=== PATIENT | female | born 1940 | race Caucasian/White ===

== ENCOUNTER 2017-01-06 14:24 | Emergency (ER) | payer OTHER ==
[2017-01-06] MEDS ORDERED: ASPIRIN PO STA (14:30)
[2017-01-06 15:00] LABS: MANUAL DIFF NEEDED? NO
[2017-01-06 15:02] LABS: BASO% 0.4 % (0.0-0.8); EOS# 0.32 X1000 (0.0-0.7); EOS% 3.2 % (0.0-10.0); HEMATOCRIT 39.1 % (37.0-47.0); HEMOGLOBIN 13.7 g/dL (12.0-16.0); IMM GRAN# 0.02 X1000 (0.0-0.04); IMM GRAN% 0.2 % (0.0-0.5); LYMPH# 1.61 X1000 (1.2-3.4); LYMPH% 16.1 % (20.5-51.1); MCV 85.6 FL (81-99); MONO# 1.19 X1000 (0.11-0.59); MONO% 11.9 % (1.7-9.3); MPV 9.3 FL (7.4-10.4); NEUT% 68.2 % (42.2-75.2); PLT 245 X1000 (130-400); RBC 4.57 XMIL (4.2-5.4)
[2017-01-06] MEDS ORDERED: DUONEB (A & A) INH ONE (15:03)
[2017-01-06] MEDS ORDERED: DUONEB (A & A) ONE (15:04)
[2017-01-06 15:11] LABS: BE 1.3 mmoll (-3.0-3.0); BLOOD TYPE ARTERIAL; DRAW SITE L RADIAL; O2(CT) 18.4 mL/dL (15.0-23.0); PCO2(98.6) 40 mmHg (35-45); PO2(98.6) 81 mmHg (60-100); SAMPLE BLOOD; SAO2 99.7 % (95.0-100.0); pH(98.6) 7.42 (7.35-7.45)
--- NOTE | 2017-01-06 15:19 | PROVIDER DOCUMENTATION ---
HPI-Respiratory General - General Source: patient - History of Present Illness-Resp Onset/Duration: reports: 1 week ago Timing: reports: still present Cough Quality/Degree: reports: productive cough Associated Symptoms: reports: cough, short of breath, wheezing. denies: fever/ chills <Zonia Madera - Last Filed: 01/06/17 16:57> <Jluis Asher - Last Filed: 01/06/17 17:00> - General Chief Complaint: Shortness of Breath Stated Complaint: SOB Time Seen by Provider: 01/06/17 15:14 Allergies/Adverse Reactions: Patient Allergies Allergy/AdvReac Type Severity Reaction Status Date / Time codeine [Codeine] Allergy RASH Verified 04/28/14 21:21 hydrocodone bitartrate * Allergy VOMITING Verified 04/28/14 21:21 [From Lortab] Penicillins Allergy SWELLING Verified 04/28/14 21:21 Sulfa (Sulfonamide Allergy ITCHING Verified 04/28/14 21:21 Antibiotics) [Sulfa(Sulfonamide Antibiotics)] Home Medications: Home Medication List Medication Instructions Recorded Confirmed Last Taken Type AMLODIPINE/BENAZEpril [Lotrel 5/10 1 each PO DAILY #0 capsule 11/09/14 07/26/15 07/25/15 05:00 Rx mg] Albuterol [Albuterol Neb] 2.5 mg INH [id number] 07/22/15 07/26/15 07/25/15 05:00 History Ipratropium [place] Neb [Atrovent 0.5 mg INH 4XDAY 07/22/15 07/26/15 07/25/15 05 :00 History Neb] Ondansetron HCl [Zofran] 4 mg PO DAILY 07/22/15 07/26/15 07/25/15 05:00 History Warfarin [Coumadin] 5 mg PO QHS 07/22/15 07/22/15 07/14/15 History Ondansetron HCl [Zofran] 4 mg PO Q4H PRN PRN #0 tablet 07/26/15 Unknown Rx Levofloxacin [Levaquin] 500 mg PO DAILY #10 tablet 01/06/17 Unknown Rx Prednisone 10 mg PO BID #30 tablet 01/06/17 Unknown Rx - History of Present Illness-Resp Nature of Presenting Problem: 76 Y F presents to thr ER with the complain of SOB, nasal congestion, wheezing x1 week. states she takes Prednisone but currently out. Pt uses home O2 and were diagnosed with lymphoma 9 years ago. Denies any symptoms of N/V/D. Received the Prevnar 13 vaccination for pneumonia x2 weeks ago. (Zonia Madera) Review of Systems - Adult - REVIEW OF SYSTEMS - ADULT Constitutional: denies: chills, fever Eyes: reports: no symptoms reported Ears, Nose, Mouth & Throat: reports: no symptoms reported Cardiovascular: denies: chest pain, palpitations Respiratory: reports: cough, shortness of breath, wheezing Gastrointestinal: reports: abdominal pain. denies: nausea, vomiting Genitourinary: reports: no symptoms reported Musculoskeletal: reports: no symptoms reported Integumentary: reports: no symptoms reported Neurological: reports: no symptoms reported Psychiatric: reports: no symptoms reported Endocrine: reports: no symptoms reported Hematologic/Lymphatic: reports: no symptoms reported Allergic/Immunologic: reports: no symptoms reported All Other Systems: Reviewed and Negative <Zonia Madera - Last Filed: 01/06/17 16:57> Past History - Adult - PAST MEDICAL HISTORY-ADULT Review of Records: reports: Nursing Assessment Review, Medications Reviewed Major Childhood Illnesses: reports: denies history Cardiovascular: reports: HTN Respiratory: reports: asthma, COPD Endocrine/Immune: reports: Lymphoma - PRIOR SURGERIES/PROCEDURES Surgical/Procedure History: reports: hysterectomy, other (tunnel hemorrhoidectomy) - PRIOR HOSPITALIZATIONS Prior Hospitalizations: reports: for other non-related - IMMUNIZATION STATUS Childhood Immunizations: See Nurse Assessment Flu Vaccine: See Nurse Assessment - FAMILY HISTORY Family History: reviewed, not pertinent <Zonia Madera - Last Filed: 01/06/17 16:57> Physical Exam-General - PHYSICAL EXAM-ADULT Initial Vital Signs Reviewed: Yes - CONSTITUTIONAL General Appearance: appears well, alert - EYES Eyes: PERRL/EOMI, pink conjunctivae - HEAD, EARS, NOSE, MOUTH & THROAT HENMT: normal ENT inspection, TMs normal - RESPIRATORY Respiratory: no respiratory distress, no accessory muscle use, wheezing, increased rate - CARDIOVASCULAR Cardiovascular: normal peripheral pulses, regular rate, rhythm - GASTROINTESTINAL (ABDOMEN) Abdominal Exam: normal bowel sounds, non tender, soft - MUSCULOSKELETAL Back Exam: no CVA tenderness, no vertebral tenderness, other (dowagers hump) Extremity: normal range of motion, normal gait, normal inspection - SKIN Integumentary: normal color, warm/dry - NEUROLOGIC Neurologic: grossly normal, no motor/sensory deficits - PSYCHIATRIC Psych/Mental Status: normal mood/affect, normal thought content, normal thought process, oriented x 3 <Zonia Madera - Last Filed: 01/06/17 16:57> Progress - EKG 1 Time of EKG reading by physician:: 14:44 EKG Read and Signed by:: Jluis Asher EKG Interpretation (*Must complete 3 of following elements*): Abnormal ( Borderline ECG) Rate: 107 Rhythm: Sinus Tachycardia [place]: normal QRS: normal PA Interval: normal ST Wave: normal Comments: Possible lest artrial enlargment - XRAY 1 XRAY Study: Chest Impression: Abnormal (hyperinflated, per Dr. Asher) <Zonia Madera - Last Filed: 01/06/17 16:57> <Jluis Asher - Last Filed: 01/06/17 17:00> - PLAN OF CARE/RESULTS Progress/Plan/Lab Results: Vital Signs Temp Pulse Resp BP Pulse Ox 01/06/17 14:35 99.7 F H 103 H 24 112/71 93 L codeine [Codeine] Allergy (Verified 04/28/14 21:21) RASH hydrocodone bitartrate * [From Lortab] Allergy (Verified 04/28/14 21:21) VOMITING Penicillins Allergy (Verified 04/28/14 21:21) SWELLING Sulfa (Sulfonamide Antibiotics) [Sulfa(Sulfonamide Antibiotics)] Allergy ( Verified 04/28/14 21:21) ITCHING AMLODIPINE/BENAZEpril [Lotrel 5/10 mg] 1 each PO DAILY #0 capsule 11/09/14 Albuterol [Albuterol Neb] 2.5 mg INH [id number] 07/22/15 Ipratropium [place] Neb [Atrovent Neb] 0.5 mg INH 4XDAY 07/22/15 Ondansetron HCl [Zofran] 4 mg PO DAILY 07/22/15 Warfarin [Coumadin] 5 mg PO QHS 07/22/15 Ondansetron HCl [Zofran] 4 mg PO Q4H PRN PRN #0 tablet 07/26/15 Laboratory 01/06/17 01/06/17 14:50 14:50 WBC 9.98 RBC 4.57 Hgb 13.7 Hct 39.1 MCV 85.6 MCH 30.0 MCHC 35.0 RDW Std Deviation 13.0 Plt Count 245 MPV 9.3 Immature Gran % (Auto) 0.2 Neut % (Auto) 68.2 Lymph % (Auto) 16.1 L [place] % (Auto) 11.9 H Eos % (Auto) 3.2 Baso % (Auto) 0.4 Immature Gran # (Auto) 0.02 Neut # (Auto) 6.80 H Lymph # (Auto) 1.61 [place] # (Auto) 1.19 H Eos # (Auto) 0.32 Baso # (Auto) 0.04 Specimen Type ARTERIAL Sample Site L RADIAL pH 7.42 pCO2 40 pO2 81 HCO3 25.8 Base Excess 1.3 Oxyhemoglobin 93.4 L ABG O2 Sat (Calculated) 18.4 ABG O2 Saturation 99.7 ABG Carboxyhemoglobin 5.30 H* ABG Methemoglobin 1.0 Russel Test YES A-a O2 Difference 69.0 Total Hemoglobin 14.0 Lactate 1.80 Blood Gas Modality CANNULA FiO2 % 28.0 Orders Category Date Time Status Cardiac Monitoring DIRECTED Care 01/06/17 14:30 Active Oxygen Therapy- ED Nursing DIRECTED Care 01/06/17 14:30 Active Saline Loc NOW Care 01/06/17 14:30 Active CHEST-2 VIEWS [RAD] Stat Exams 01/06/17 14:30 Ordered ABG [RESP] Routine Lab 01/06/17 14:50 Completed CBC WITH ELECTRONIC DIFF [HEME] Stat Lab 01/06/17 14:50 Completed CK PROFILE [SP CHEM] Stat Lab 01/06/17 14:50 Received COMPREHENSIVE METABOLIC PANEL [CHEM] Stat Lab 01/06/17 14:50 Received D-D[address]ER PL [COAG] Stat Lab 01/06/17 14:50 Received MAGNESIUM [CHEM] Stat Lab 01/06/17 14:50 Received PRO B-NATRIURETIC PEPTIDE Stat Lab 01/06/17 14:[address] Received [address]IME WITH INR PL [COAG] Stat Lab 01/06/17 14:[address] [COAG] Stat Lab 01/06/17 14:50 Received TROPONIN T Stat Lab 01/06/17 14:50 Received Albuterol 2.5MG/Ipratrop 0.5MG [Duoneb (A & A)] Med 01/06/17 15:04 Discontinued 3 ml .ROUTE .STK-MED ONE Albuterol 2.5MG/Ipratrop 0.5MG [Duoneb (A & A)] Med 01/06/17 15:03 Discontinued 3 ml INH NOW ONE Aspirin Med 01/06/17 14:30 Discontinued 325 mg PO STAT STA Aerosol Treatments Stat Oth 01/06/17 15:03 Active EKG [EKG] Stat Ther 01/06/17 14:30 Ordered Laboratory Tests 01/06/17 01/06/17 14:50 14:50 WBC 9.98 RBC 4.57 Hgb 13.7 Hct 39.1 MCV 85.6 MCH 30.0 MCHC 35.0 RDW Std Deviation 13.0 Plt Count 245 MPV 9.3 Immature Gran % (Auto) 0.2 Neut % (Auto) 68.2 Lymph % (Auto) 16.1 L [place] % (Auto) 11.9 H Eos % (Auto) 3.2 Baso % (Auto) 0.4 Immature Gran # (Auto) 0.02 Neut # (Auto) 6.80 H Lymph # (Auto) 1.61 [place] # (Auto) 1.19 H Eos # (Auto) 0.32 Baso # (Auto) 0.04 Specimen Type ARTERIAL Sample Site L RADIAL pH 7.42 pCO2 40 pO2 81 HCO3 25.8 Base Excess 1.3 Oxyhemoglobin 93.4 L ABG O2 Sat (Calculated) 18.4 ABG O2 Saturation 99.7 ABG Carboxyhemoglobin 5.30 H* ABG Methemoglobin 1.0 [place] Test YES A-a O2 Difference 69.0 Total Hemoglobin 14.0 Lactate 1.80 Blood Gas Modality [place] FiO2 % 28.0 (Zonia Madera) Departure - Departure Time of Disposition Order: 16:57 Certified Medical Emergency: Emergent <Zonia Madera - Last Filed: 01/06/17 16:57> - Departure Time of Disposition Order: 16:59 Certified Medical Emergency: Emergent <Jluis Asher - Last Filed: 01/06/17 17:00> - Departure DIAGNOSIS: Acute bronchitis due to infection, COPD exacerbation Disposition: HOME 01 Condition: Stable Additional Instructions: ED Follow Up Instructions: You have been treated by a care provider in the Emergency Department. These instructions are being provided to you so you can have an understanding of how to care for yourself upon discharge. Upon discharge from the Emergency Department, you are responsible for making arrangements for follow-up care by a physician of your choice. Take all prescribed medications as directed. Return to the Emergency Department immediately for any new or worsening symptoms. You may call the Physician Referral phone number at [phone] to obtain a list of Physicians who are taking new patients. Prescriptions: Levofloxacin [Levaquin] 500 mg PO DAILY #10 tablet Prednisone 10 mg PO BID #30 tablet Referrals: Ankush Perez MD [Primary Care Provider] - Attestation - Scribe Verification/Attestation Scribe:: Zonia Madera Acting as Scribe for:: Jluis Asher Scribe documention review:: This chart was documented by a scribe and accurately reflects the service the provider performed and the decisions made by the provider. <Zonia Madera - Last Filed: 01/06/17 16:57> Physician Attestation
[2017-01-06 15:23] LABS: ALLEN TEST YES; MODALITY CANNULA
[2017-01-06 15:28] LABS: INR 0.97 (0.86-1.15); PROTIME 13.2 Seconds (12.1-15.5)
[2017-01-06 15:29] LABS: PTT PL 29.2 Seconds (22.6-43.9)
[2017-01-06 15:31] LABS: AGAP 15; ALKALINE PHOSPHATASE 59 U/L (32-104); BUN 9 mg/dL (8-22); CALCIUM 8.7 mg/dL (8.8-10.2); CHLORIDE 96 mmol/L (98-107); CK PROFILE 130 U/L (24-173); COSMO 267; GOT 18 U/L (10-30); GPT 11 U/L (10-36); MAGNESIUM 1.8 mg/dL (1.5-2.7); POTASSIUM 3.4 mmol/L (3.5-5.1); SODIUM 133 mmol/L (136-145); TCO2 22 mmol/L (25-35)
--- NOTE | 2017-01-06 17:01 | EKG Report ---
Test Performed on : 01/06/2017 2:44:09 PM Test Reason : CHEST PAIN Blood Pressure : / mmHG Vent. Rate : 107 BPM Atrial Rate : 107 BPM P-R Int : 128 ms QRS Dur : 066 ms QT Int : 326 ms P-R-T Axes : 079 080 066 degrees QTc Int : 435 ms Sinus tachycardia. Possible Left atrial enlargement Borderline ECG When compared with ECG of 22-JUL-2015 13:27, No significant change was found Unconfirmed Result
--- NOTE | 2017-01-06 17:03 | Diag Imaging Result Document ---
PROCEDURE NAME: CHEST-2 VIEWS - 01/06/2017 PA AND LATERAL RADIOGRAPHS OF THE CHEST: COMPARISON: 05/11/2016. FINDINGS: Left chest port is in stable position. The lungs are grossly clear. There is no definite pleural fluid collection. There is a stable catheter fragment projecting over the mediastinum, likely in the right ventricle. Cardiac silhouette and central vasculature are unremarkable, otherwise. IMPRESSION: Stable chest with no definite acute pathology.
[2017-01-06 17:30] VITALS: BP 167/87
== END 2017-01-06 17:30 | disposition home or self-care (01) ==
LOC: P.ED 14:24
DX: J20.9 Acute bronchitis, unspecified (principal); J44.1 Chronic obstructive pulmonary disease with (acute) exacerbation; R06.02 Shortness of breath; R09.81 Nasal congestion; R06.2 Wheezing; R05 Cough; I10 Essential (primary) hypertension; Z85.72 Personal history of non-Hodgkin lymphomas; Z79.899 Other long term (current) drug therapy; R94.31 Abnormal electrocardiogram [ECG] [EKG]; R10.9 Unspecified abdominal pain; Z79.84 Long term (current) use of oral hypoglycemic drugs
CPT/HCPCS: 71020; 80053; 82550; 82805; 83735; 83880; 84484; 85025; 85379; 85610; 85730; 93005; 99284

== ENCOUNTER 2018-11-24 09:44 | Inpatient (IN) ==
[2018-11-24] MEDS ORDERED: DUONEB (A & A) INH ONE ×2 (10:00→12:16)
[2018-11-24] MEDS ORDERED: ZOFRAN IV ONE ×2 (10:00→12:16)
[2018-11-24] MEDS ORDERED: SOLU-MEDROL IV ONE (10:00)
[2018-11-24] MEDS ORDERED: ATIVAN IV ONE (10:00)
[2018-11-24] MEDS ORDERED: NS 1,000 ML IV ONE (10:02)
[2018-11-24] MEDS ORDERED: ROCEPHIN 1 GM in NS 50 ML IV ONE (10:11)
[2018-11-24] MEDS ORDERED: ZITHROMAX 500 MG/NS 500 MG/250 ML IVPB IV ONE (10:11)
--- NOTE | 2018-11-24 10:11 | PROVIDER DOCUMENTATION ---
HPI-Respiratory General - General Chief Complaint: Shortness of Breath Stated Complaint: SOB,COPD Time Seen by Provider: 11/24/18 09:55 Source: patient, family Allergies/Adverse Reactions: Patient Allergies Allergy/AdvReac Type Severity Reaction Status Date / Time codeine [Codeine] Allergy RASH Verified 11/24/18 11:01 hydrocodone bitartrate * Allergy VOMITING Verified 11/24/18 11:01 [From Lortab] Penicillins Allergy SWELLING Verified 11/24/18 11:01 Sulfa (Sulfonamide Allergy ITCHING Verified 11/24/18 11:01 Antibiotics) [Sulfa(Sulfonamide Antibiotics)] Home Medications: Home Medication List Medication Instructions Recorded Confirmed Last Taken Type Albuterol [Albuterol Neb] 2.5 mg INH [id number] 07/22/15 11/24/18 07/25/15 05:00 History Ipratropium [place] Neb [Atrovent 0.5 mg INH 4XDAY 07/22/15 11/24/18 07/25/15 05 :00 History Neb] - History of Present Illness-Resp Nature of Presenting Problem: Patient has hx of COPD, on home O2 1LPM prn states she has had increased SOB and work of breathing over the last 4 days, getting gradually worse. Denies fever, chills, CP, patient states she is nauseaus. Quality of Pain: reports: none Severity in ED: reports: moderate Onset/Duration: reports: 4 days ago Timing: reports: still present, constant, getting worse Context: reports: multiple patients with similar complaints, recent URI Exposure: reports: illness exposure, smoke exposure (still smokes, though hasn' t smoked in the last 4 days) Cough Quality/Degree: reports: moderate, productive cough, sputum Episode Frequency: occasional episodes Current Respiratory Medication Therapy: Initiated albuterol/atrovent inhale, Initiated A/A nebulizer, Initiated prednisone Modifying Factors: improves with: oxygen, rest. worse with: exertion, coughing Associated Symptoms: reports: chest pain/soreness, cough, hyperventilating, short of breath, sweaty, wheezing Similar Symptoms Previously?: Yes Recently seen or treated by another doctor?: No Review of Systems - Adult - REVIEW OF SYSTEMS - ADULT Constitutional: reports: see HPI, chills, fever. denies: night sweats Eyes: reports: no symptoms reported Ears, Nose, Mouth & Throat: reports: no symptoms reported Cardiovascular: reports: no symptoms reported Respiratory: reports: see HPI, chronic cough, cough, dyspnea on exertion, excessive sputum production, shortness of breath, wheezing. denies: hemoptysis , pleurisy Gastrointestinal: reports: no symptoms reported Genitourinary: reports: no symptoms reported Musculoskeletal: reports: no symptoms reported Integumentary: reports: no symptoms reported Neurological: reports: no symptoms reported Psychiatric: reports: no symptoms reported Endocrine: reports: no symptoms reported Hematologic/Lymphatic: reports: no symptoms reported Allergic/Immunologic: reports: no symptoms reported All Other Systems: Reviewed and Negative Past History - Adult - PAST MEDICAL HISTORY-ADULT Review of Records: reports: Old Records Reviewed, Nursing Assessment Review, Medications Reviewed, Social history reviewed & non-contributory. Major Childhood Illnesses: reports: denies history Cardiovascular: reports: CHF, HTN Respiratory: reports: asthma, COPD Gastrointestinal: reports: denies history Obstetrical/Gynecological: reports: denies history Genitourinary: reports: denies history Musculoskeletal: reports: denies history Neurological: reports: denies history Endocrine/Immune: reports: Lymphoma Other Conditions: reports: denies history - PRIOR SURGERIES/PROCEDURES Surgical/Procedure History: reports: hysterectomy, other - PRIOR HOSPITALIZATIONS Prior Hospitalizations: reports: for other non-related - IMMUNIZATION STATUS Childhood Immunizations: See Nurse Assessment Flu Vaccine: See Nurse Assessment - FAMILY HISTORY Family History: reviewed, not pertinent - SOCIAL HISTORY Smoking: cigarettes, greater than 1 pack/day Provider spent 3-5 mins advising pt. on dangers of tobacco.: Discussed manners to quit use, and f/u contacts for add'l counseling. Substance Use: none/never Alcohol Use Frequency: rarely Living Situation: family Physical Exam-General - PHYSICAL EXAM-ADULT Initial Vital Signs Reviewed: Yes (Febrile, tachycardic, tachypneic, meets sepsis criteria) - CONSTITUTIONAL General Appearance: mild distress, thin, anxious - EYES Eyes: PERRL/EOMI, pink conjunctivae - HEAD, EARS, NOSE, MOUTH & THROAT HENMT: normocephalic/atraumatic, moist mucous membranes, normal ENT inspection, pharynx normal - NECK Neck: non-tender, full range of motion, supple, normal inspection - RESPIRATORY Respiratory: chest non-tender, no pleuratic chest pain, respiratory distress ( moderate), decreased breath sounds, accessory muscle use, rhonchi, wheezing, prolonged expiration, increased rate - CARDIOVASCULAR Cardiovascular: regular rate, rhythm, no gallop, no JVD, tachycardia, gallop/S3 - GASTROINTESTINAL (ABDOMEN) Abdominal Exam: normal bowel sounds, non tender, soft, no organomegaly, no pulsatile mass - LYMPHATIC Lymphatic: no adenopathy - MUSCULOSKELETAL Back Exam: normal inspection, no CVA tenderness, no vertebral tenderness Extremity: normal range of motion, non-tender, no calf tenderness, normal capillary refill, pedal edema (1-2+ bilateral) - SKIN Integumentary: normal color, normal turgor, warm/dry - NEUROLOGIC Neurologic: winding inspector II-XII nml as tested, grossly normal, no motor/sensory deficits - PSYCHIATRIC Psych/Mental Status: normal mood/affect, normal thought content, normal thought process, oriented x 3 Progress - PLAN OF CARE/RESULTS Progress/Plan/Lab Results: Orders Category Date Time Status Admit - [facility] Routine AdmDCTranf 11/24/18 12:30 Active Activity - Strict Bedrest ORDERED Care 11/24/18 12:30 Completed Call Admitting on Arrival AT ADMISSION Care 11/24/18 12:31 Completed Neurological Check EVERY SHIFT NURSING Care 11/24/18 12:30 Completed Nursing- Obtain EKG once Care 11/24/18 09:59 Completed Resuscitation Status Routine Care 11/24/18 12:30 Ordered Saline Loc NOW Care 11/24/18 09:59 Completed Vital Signs Order [id number].[email or web address] Care 11/24/18 12:30 Completed Z-Document. for Tele Applied ORDERED Care 11/24/18 12:31 Completed CHEST-PORTABLE [RAD] Stat Exams 11/24/18 10:00 Completed ABG [RESP] Routine Lab 11/24/18 10:20 Completed BLOOD CULTURE [BLDCUL] Stat Lab 11/24/18 10:51 Results CBC WITH ELECTRONIC DIFF [HEME] Stat Lab 11/24/18 10:38 Completed CK PROFILE [SP CHEM] Stat Lab 11/24/18 10:38 Completed COMPREHENSIVE METABOLIC PANEL [CHEM] Stat Lab 11/24/18 10:38 Completed INFLUENZA SCREEN A/B Stat Lab 11/24/18 10:43 Completed LACTATE, PLASMA [CHEM] Stat Lab 11/24/18 10:38 Completed MAGNESIUM [CHEM] Stat Lab 11/24/18 10:38 Completed PRO B-NATRIURETIC PEPTIDE Stat Lab 11/24/18 10:38 Completed PROTIME WITH INR [COAG] Stat Lab 11/24/18 10:38 Completed TROPONIN T Stat Lab 11/24/18 10:38 Completed URINALYSIS W/POSS RFLX CULT [URINALYSIS] Stat Lab 11/24/18 12:35 Completed 0.9% Sodium Chloride Inj [Ns] 1,000 ml Med 11/24/18 10:02 Discontinued IV 999 mls/hr Acetaminophen [Tylenol] Med 11/24/18 10:12 Discontinued 1,000 mg PO NOW ONE Acetaminophen [Tylenol] Med 11/24/18 17:00 Active 650 mg PO Q6H PRN PRN Albuterol 2.5MG/Ipratrop 0.5MG [Duoneb (A & A)] Med 11/24/18 12:16 Discontinued 3 ml INH NOW ONE Albuterol 2.5MG/Ipratrop 0.5MG [Duoneb (A & A)] Med 11/24/18 10:00 Discontinued 9 ml INH NOW ONE Azithromycin 500 mg/Ns [Zithromax 500 mg/Ns] Med 11/24/18 10:11 Discontinued 500 mg in 250 ml IV NOW CefTRIAXONE [Rocephin] 1 gm Med 11/24/18 10:11 Discontinued 0.9% Sodium Chloride Inj [Ns] 50 ml IV NOW Furosemide [Lasix] Med 11/24/18 10:13 Discontinued 20 mg IV NOW ONE Lorazepam [Ativan] Med 11/24/18 10:00 Discontinued 0.5 mg IV NOW ONE Magnesium Sulfate 1 gm/D5w Med 11/24/18 10:56 Discontinued 1 gm in 100 ml IV NOW Methylprednisolone Sod Succ [Solu-Medrol] Med 11/24/18 10:00 Discontinued 125 mg IV NOW ONE Ondansetron [Zofran] Med 11/24/18 10:00 Discontinued 4 mg IV NOW ONE Ondansetron [Zofran] Med 11/24/18 12:16 Discontinued 4 mg IV NOW ONE Vancomycin 1 gm/Ns Med 11/24/18 10:18 Discontinued 1 gm in 250 ml IV NOW Aerosol Treatments Routine Oth 11/24/18 10:01 Completed Aerosol Treatments Routine Oth 11/24/18 12:17 Completed Aerosol Treatments Stat Oth 11/24/18 10:01 Completed Aerosol Treatments Stat Oth 11/24/18 12:17 Completed EKG [EKG] Stat Ther 11/24/18 09:59 Draft Ryden: Examined pt, rr elevated, working to breath, wheezing has had bipap in the past, d/w pt and son about intubation, chest compressions and shocking the heart, she said if it will save her life do it. I added Mag IV and will add bipap, pt has fever and has been given APAP BNP elevated, pt has been given lasix 20, lactate nl so does not qualify for IVF 30 ml/kg, the liter given may have off set the lasix, pt primarily wheezing at the moment, no elevated total WBC Chest xray neg, no other new concerning findings of review of labs, UA pending, currently no source for fever unless subtle pneumonia not picked up by chest xray or UTI 12:17 pt not on bipap yet, rr still elevated, pt resting, HR 102, wheezing mild , call out to hospitalist, correction, Dr Roman Goode is PCP D/w Dr Castillo [facility] condition exam results treatment concerns, not a DNR, asked for orders and admit to ICU Result Diagrams: 11/27/18 04:48 11/27/18 04:48 - REASSESSMENT Reassessment #1 Time Reassessed: 10:17 Status: unchanged (Patient meets criteria for sepsis, will treat for CAP, last admitted 07/09. Given IVF bolus, Duoneb x 3, IV solu-medrol, IV lasix, tylenol po, IV Rocephin/zithromax. Old chart reviewed. Patient has a port, so will also admininster vanc.) - EKG 1 Time of EKG reading by physician:: 10:00 EKG Read and Signed by:: Deondre Reynolds EKG Interpretation (*Must complete 3 of following elements*): Abnormal Rate: 119 Rhythm: sinus tachy [place]: normal QRS: poor R wave progression [place] Interval: normal ST Wave: non-specific ST changes - CHANGE OF SHIFT REPORT (ED Provider) Report Given and Care Transferred to:: Cherelle Time of Transfer: 10:19 Items Pending: Labs, XRAY Results (will likely need admission) Departure - Departure Date of Disposition Decision: 11/24/18 Time of Disposition Decision: 12:19 DIAGNOSIS: COPD with exacerbation, Tobacco use disorder, Fever, Acute respiratory distress Sepsis Qualifiers: Sepsis type: sepsis due to unspecified organism Qualified Code(s): A41.9 - Sepsis, unspecified organism Disposition: ADMITTED INPATIENT 09 Certified Medical Emergency: Emergent Condition: Fair - Critical Care Note This patient required my direct & personal management of CC.: Yes Total Time (mins): 45 Critical Care Statement: This patient required my direct personal management to treat or rule out processes, the absence of which, could potentiallly result in sudden, clinically significant life or limb threatening deterioration. Attestation - Physician/ SCOTT Attestation Patient care was provided by Advanced Practice Provider:: No The physician spent face to face time with patient:: Yes Advanced Practice Provider documentation review:: Supervising physician onsite and consulted in the evaluation and care of this patient. The physician did have a face to face encounter with the patient.
[2018-11-24] MEDS ORDERED: TYLENOL PO ONE (10:12)
[2018-11-24] MEDS ORDERED: LASIX IV ONE (10:13)
[2018-11-24] MEDS ORDERED: VANCOMYCIN 1 GM/NS 1 GM/250 ML IVPB IV ONE (10:18)
--- NOTE | 2018-11-24 10:23 | Diag Imaging Result Doc PS360 ---
EXAM: CHEST-PORTABLE 11/24/2018 HISTORY: sob TECHNIQUE: AP portable at 1010 COMMENT: There is some increase in interstitial markings bilaterally. This is only slightly more conspicuous than on 07/11/2018 or 07/12/2018. Compared to 01/06/2017 the lungs are not as well-expanded but the degree of interstitial opacity is similar. IMPRESSION: Probable interstitial fibrosis. No evidence of acute disease. Electronically signed by Griffin Lane 11/24/2018 10:21 AM
[2018-11-24 10:31] LABS: ALLEN TEST YES; BE 1.3 mmoll (-3.0-3.0); BLOOD TYPE ARTERIAL; HCO3-(ACT) 25.9 mmoll (20.0-26.0); METHB 1.3 % (0.0-1.5); O2(CT) 17.7 mL/dL (15.0-23.0); PCO2(98.6) 40 mmHg (35-45); PO2(98.6) 84 mmHg (60-100); SAMPLE BLOOD; SAO2 98.2 % (95.0-100.0); THB 13.2 g/dL (11.5-17.4); pH(98.6) 7.42 (7.35-7.45)
[2018-11-24 10:32] LABS: MODALITY CANNULA
[2018-11-24] MEDS ORDERED: MAGNESIUM SULFATE 1 GM/D5W 1 GM/100 ML IVPB IV ONE (10:56)
[2018-11-24 11:06] LABS: BASO# 0.01 X1000 (0.0-0.2); BASO% 0.1 % (0.0-0.8); EOS# 0.02 X1000 (0.0-0.7); EOS% 0.2 % (0.0-10.0); HEMATOCRIT 38.1 % (37.0-47.0); HEMOGLOBIN 12.6 g/dL (12.0-16.0); IMM GRAN# 0.02 X1000 (0.0-0.04); IMM GRAN% 0.2 % (0.0-0.5); LYMPH# 0.78 X1000 (1.2-3.4); LYMPH% 8.4 % (20.5-51.1); MCHC 33.1 g/dL (33-37); MCV 87.8 FL (81-99); MONO# 1.22 X1000 (0.11-0.59); MONO% 13.2 % (1.7-9.3); MPV 9.8 FL (7.4-10.4); NEUT# 7.22 X1000 (1.4-6.5); NEUT% 77.9 % (42.2-75.2); PLT 185 X1000 (130-400); RBC 4.34 XMIL (4.2-5.4); RDW 13.3 % (11.5-14.5); WBC 9.27 X1000 (4.8-10.8)
[2018-11-24 11:11] LABS: INR 1.01; PROTIME 14.1 Seconds (11.0-16.0)
[2018-11-24 11:31] LABS: AGAP 17; ALBUMIN 3.8 g/dL (3.5-5.0); ALKALINE PHOSPHATASE 60 U/L (32-104); BUN 9 mg/dL (8-22); CALCIUM 8.1 mg/dL (8.8-10.2); CHLORIDE 93 mmol/L (98-107); CK PROFILE 160 U/L (24-173); COSMO 268; CREATININE 0.6 mg/dL (0.5-0.9); ESTIMATED GFR > 60; GLUCOSE 152 mg/dL (70-104); GOT 29 U/L (10-30); GPT 11 U/L (10-36); MAGNESIUM 1.5 mg/dL (1.5-2.7); POTASSIUM 4.5 mmol/L (3.5-5.1); SODIUM 133 mmol/L (136-145); TCO2 23 mmol/L (25-35); TOTAL BILIRUBIN 0.47 mg/dL (0.20-1.00); TOTAL PROTEIN 5.7 g/dL (6.3-8.3)
[2018-11-24] MEDS ORDERED: TYLENOL PO PRN ×2 (12:30→17:00)
[2018-11-24 12:39] LABS: URINE SOURCE CLEAN CATCH
[2018-11-24 12:45] LABS: BILIRUBIN URINE NEGATIVE (NEGATIVE); BLOOD URINE NEGATIVE (NEGATIVE); COLOR STRAW; GLUCOSE URINE NEGATIVE (NEGATIVE); KETONE URINE NEGATIVE (NEGATIVE); LEUKOCYTES URINE NEGATIVE (NEGATIVE); NITRITE URINE NEGATIVE (NEGATIVE); PH URINE 6.5; PROTEIN URINE NEGATIVE (NEGATIVE); TURBIDITY URINE CLEAR (CLEAR); UROBILINOGEN URINE NORMAL (NORMAL)
[2018-11-24 12:47] LABS: UR EPITHELIAL CELLS <10 /HPF (<10); URINE BACTERIA NEGATIVE /HPF; URINE RBC <10 /HPF (<10); URINE WBC <10 /HPF (<10)
[2018-11-24] MEDS ORDERED: ATIVAN IV PRN (13:38)
[2018-11-24] MEDS: DUONEB (A & A) INH SCH ×2 (15:31→20:00)
--- NOTE | 2018-11-24 17:55 | HISTORY AND PHYSICAL ---
HISTORY OF PRESENT ILLNESS: Ms. Arce is a 78-year-old white female with known case of COPD and lymphoma, who has been short of breath for the last 4 days. She has been panicking on the shortness of breath and getting worse, and this morning she could not breathe much longer and came to the emergency room. Other details of personal, past, and family history reveal history of chronic heavy smoking. She does not drink. ALLERGIES: She is allergic to codeine, hydrocodone bitartrate, and penicillins. PAST SURGICAL HISTORY: She has history of hysterectomy as well as cholecystectomy and has had a Port-A-Cath on the left side of the chest where she was getting the treatment for lymphoma. PAST MEDICAL HISTORY: She has been through with the treatment of lymphoma with Dr. Villegas for the last 1 year. REVIEW OF SYSTEMS: General: She is very weak. Cardiopulmonary: Has persistent cough, shortness of breath, without chest pain. Gastrointestinal: Negative. Endocrine: Negative. Breast: Negative. Constitutional: She has some fever with chills. PHYSICAL EXAMINATION: GENERAL: Patient is alert, oriented. VITAL SIGNS: Reveal temperature 98.4 degrees Fahrenheit, pulse 102 per minute, respiratory rate was 32 per minute, blood pressure 96/62. HEENT: Head Normocephalic. Eyes : PERRLA. Fundus examination not done. ENT examination unremarkable NECK: Supple. JVP normal. There is no evidence of lymphadenopathy, thyroid enlargement, anemia, cyanosis, or clubbing. There is mild bilateral pedal edema. BREAST: Exam not done. CHEST: Reveals a Port-A-Cath in the left infraclavicular region. LUNGS: Reveal bilateral expiratory wheezing. HEART: PMI in the normal position. Heart sounds normal. No murmur, gallop, or rub noted. ABDOMEN: Nondistended. Hernial orifices normal. No guarding, rigidity, free fluid, masses, or organomegaly. Bowel sounds normal. RECTAL: Deferred. CENTRAL NERVOUS SYSTEM: Higher functions normal. Patient apprehensive. Cranial nerves normal. Motor and sensory system examination unremarkable. Deep tendon reflexes normal. Plantars downgoing. Exam is normal for age, no cerebellar signs. No signs of meningeal in vision or locomotor. SKIN: Unremarkable. CLINICAL IMPRESSION: Chronic obstructive pulmonary disease (COPD) with acute exacerbation. The patient very anxious. Arterial blood gases look normal . We will put her in ICU for the time being. Continue with steroids as well as a aerosol dilators and IV antibiotic. cc: Kulwant Bey MD MTDD
[2018-11-24] MEDS: SOLU-MEDROL IV SCH (18:16)
[2018-11-24 19:42] LABS: ALLEN TEST YES; BE -7.6 mmoll (-3.0-3.0); BLOOD TYPE ARTERIAL; METHB 1.1 % (0.0-1.5); O2(CT) 12.8 mL/dL (15.0-23.0); PCO2(98.6) 30 mmHg (35-45); PO2(98.6) 123 mmHg (60-100); SAMPLE BLOOD; SAO2 99.1 % (95.0-100.0); THB 9.2 g/dL (11.5-17.4); pH(98.6) 7.36 (7.35-7.45)
[2018-11-24 19:44] LABS: MODALITY CANNULA
[2018-11-25] MEDS: DUONEB (A & A) INH SCH ×4 (03:40→20:30)
[2018-11-25] MEDS: SOLU-MEDROL IV SCH ×3 (03:42→18:03)
[2018-11-25 05:05] LABS: BASO# 0.01 X1000 (0.0-0.2); BASO% 0.1 % (0.0-0.8); HEMATOCRIT 35.9 % (37.0-47.0); HEMOGLOBIN 11.9 g/dL (12.0-16.0); IMM GRAN# 0.02 X1000 (0.0-0.04); IMM GRAN% 0.2 % (0.0-0.5); LYMPH% 12.8 % (20.5-51.1); MCH 29.3 PG (27-31); MCHC 33.1 g/dL (33-37); MCV 88.4 FL (81-99); MONO# 0.22 X1000 (0.11-0.59); MONO% 2.6 % (1.7-9.3); MPV 10.3 FL (7.4-10.4); NEUT# 7.24 X1000 (1.4-6.5); NEUT% 84.3 % (42.2-75.2); PLT 180 X1000 (130-400); RBC 4.06 XMIL (4.2-5.4); RDW 13.1 % (11.5-14.5); WBC 8.59 X1000 (4.8-10.8)
[2018-11-25 05:38] LABS: AGAP 15; BUN 16 mg/dL (8-22); CALCIUM 7.6 mg/dL (8.8-10.2); CHLORIDE 97 mmol/L (98-107); COSMO 275; CREATININE 0.6 mg/dL (0.5-0.9); ESTIMATED GFR > 60; GLUCOSE 132 mg/dL (70-104); POTASSIUM 4.2 mmol/L (3.5-5.1); SODIUM 136 mmol/L (136-145); TCO2 24 mmol/L (25-35)
--- NOTE | 2018-11-25 08:26 | EKG Report ---
Test Performed on : 11/24/2018 09:56:57 AM Test Reason : diff breathing Blood Pressure : / mmHG Vent. Rate : 119 BPM Atrial Rate : 119 BPM P-R Int : 118 ms QRS Dur : 070 ms QT Int : 308 ms P-R-T Axes : 078 077 056 degrees QTc Int : 433 ms Sinus tachycardia. Possible Left atrial enlargement Nonspecific ST abnormality Abnormal ECG When compared with ECG of 06-JUL-2018 22:38, ST no longer depressed in Anterior leads T wave inversion no longer evident in Anterior leads Unconfirmed Result
--- NOTE | 2018-11-25 08:32 | PROGRESS NOTE ---
DATE: 11/25/2018 VITAL SIGNS: Temperature 98.4 degrees, heart rate 95, respirations 26, blood pressure 144/79, O2 saturation 98% on a Ventimask. HISTORY: This is one of several [facility] admissions for this 78-year-old, white female who presented with shortness of breath to the emergency room and was admitted to the ICU by Dr. Kendrick who was on-call. She was on BiPAP for a period of time and is on intravenous antibiotics, steroids, and nebulizer treatments. Chest x-ray was read as pulmonary fibrosis with no acute change, but she was admitted with a diagnosis off pneumonia. Most likely diagnosis is COPD exacerbation. She has moderate wheeze this morning. LABORATORY: Hemoglobin 11.9, hematocrit 35.9, white blood count 8600, with 84% neutrophils. Sodium 136, potassium 4.2, chloride 97, CO2 24, BUN 16, creatinine 0.6, glucose 132, calcium 7.6. ProBNP was 1762. Troponin T was less than 0.01. Plasma lactate was 0.7. PHYSICAL EXAMINATION: Exam reveals moderate wheezing bilaterally. Abdomen is soft. PLAN: Continue current therapy. She is allowed to have full liquids p.o. cc: MD Kulwant Flynn MD
[2018-11-25] MEDS: ROCEPHIN 1 GM in NS 50 ML IV SCH (10:12)
[2018-11-25] MEDS: ZITHROMAX 500 MG/NS 500 MG/250 ML IVPB IV SCH (13:42)
[2018-11-26 02:18] LABS: ALLEN TEST YES; BE 0.9 mmoll (-3.0-3.0); BLOOD TYPE ARTERIAL; HCO3-(ACT) 25.6 mmoll (20.0-26.0); METHB 1.5 % (0.0-1.5); O2(CT) 16.9 mL/dL (15.0-23.0); O2HB 95.5 % (95.0-99.0); PCO2(98.6) 46 mmHg (35-45); PO2(98.6) 92 mmHg (60-100); SAMPLE BLOOD; SAO2 98.5 % (95.0-100.0); THB 12.5 g/dL (11.5-17.4); pH(98.6) 7.37 (7.35-7.45)
[2018-11-26 02:19] LABS: MODALITY CANNULA
[2018-11-26] MEDS: DUONEB (A & A) INH SCH ×4 (02:21→21:14)
[2018-11-26 02:56] LABS: URINE SOURCE CATH
[2018-11-26 02:58] LABS: BILIRUBIN URINE NEGATIVE (NEGATIVE); BLOOD URINE NEGATIVE (NEGATIVE); COLOR YELLOW; GLUCOSE URINE NEGATIVE (NEGATIVE); KETONE URINE NEGATIVE (NEGATIVE); LEUKOCYTES URINE NEGATIVE (NEGATIVE); NITRITE URINE NEGATIVE (NEGATIVE); PH URINE 5.5; PROTEIN URINE NEGATIVE (NEGATIVE); SP GRAVITY URINE 1.005; TURBIDITY URINE CLEAR (CLEAR); UROBILINOGEN URINE NORMAL (NORMAL)
[2018-11-26 03:00] LABS: UR EPITHELIAL CELLS <10 /HPF (<10); URINE BACTERIA NEGATIVE /HPF; URINE RBC <10 /HPF (<10); URINE WBC <10 /HPF (<10)
[2018-11-26] MEDS: SOLU-MEDROL IV SCH ×3 (03:17→18:13)
[2018-11-26] MEDS: PROTONIX PO SCH (06:18)
--- NOTE | 2018-11-26 08:11 | PROGRESS NOTE ---
DATE: 11/26/2018 VITAL SIGNS: Temperature 98, heart rate 90, respirations 15, blood pressure 106/76, O2 saturation on 2 liters nasal oxygen 96%. Chest continues to be tight with bilateral wheezing. Abdomen is soft. The patient complained she had nightmares last night. PLAN: Continue current treatment. Chest x-ray is ordered for this morning. cc: MD Kulwant Flynn MD
--- NOTE | 2018-11-26 08:48 | Diag Imaging Result Doc PS360 ---
EXAM: CHEST-PORTABLE 11/26/2018 HISTORY: dyspnea, wheezing TECHNIQUE: AP portable at 0829 COMMENT: There is a segment of tubing or a stent which is demonstrated in the right atrium and has been present since at least 05/05/2016. There is still prominence of the upper lobe pulmonary vascularity. The heart size is within normal limits. Overall the appearance the chest has not changed significantly since 11/24/2018. IMPRESSION: Stable chest. Electronically signed by Griffin Lane 11/26/2018 8:44 AM
[2018-11-26] MEDS ORDERED: XANAX PO SCH (09:00)
[2018-11-26] MEDS: ROCEPHIN 1 GM in NS 50 ML IV SCH (10:22)
[2018-11-26] MEDS: ZITHROMAX 500 MG/NS 500 MG/250 ML IVPB IV SCH (13:42)
[2018-11-26] MEDS: XANAX PO SCH ×2 (14:55→21:51)
[2018-11-26] MEDS: ALBUTEROL NEB INH PRN (22:33)
[2018-11-27] MEDS: SOLU-MEDROL IV SCH ×3 (03:19→18:43)
[2018-11-27] MEDS: DUONEB (A & A) INH SCH ×4 (03:30→20:52)
[2018-11-27 04:53] LABS: HEMOGLOBIN 12.4 g/dL (12.0-16.0); IMM GRAN# 0.06 X1000 (0.0-0.04); IMM GRAN% 0.7 % (0.0-0.5); LYMPH# 1.01 X1000 (1.2-3.4); MCHC 31.8 g/dL (33-37); MCV 91.1 FL (81-99); MONO# 0.46 X1000 (0.11-0.59); MPV 10.3 FL (7.4-10.4); NEUT# 7.62 X1000 (1.4-6.5); NEUT% 83.3 % (42.2-75.2); PLT 195 X1000 (130-400); RBC 4.28 XMIL (4.2-5.4); RDW 13.4 % (11.5-14.5); WBC 9.15 X1000 (4.8-10.8)
[2018-11-27 05:13] LABS: AGAP 14; BUN 22 mg/dL (8-22); CALCIUM 7.7 mg/dL (8.8-10.2); CHLORIDE 99 mmol/L (98-107); COSMO 279; CREATININE 0.6 mg/dL (0.5-0.9); ESTIMATED GFR > 60; GLUCOSE 199 mg/dL (70-104); POTASSIUM 4.3 mmol/L (3.5-5.1); SODIUM 135 mmol/L (136-145); TCO2 22 mmol/L (25-35)
[2018-11-27] MEDS: ALBUTEROL NEB INH PRN ×2 (05:25→23:54)
[2018-11-27] MEDS: PROTONIX PO SCH (06:21)
--- NOTE | 2018-11-27 07:58 | PROGRESS NOTE ---
DATE: 11/27/2018 VITAL SIGNS: Stable with temperature 97.8, heart rate 94, respiration 19, blood pressure 133/95, O2 saturation on 2 liters nasal oxygen 98%. LABORATORY: Hemoglobin 12.4, hematocrit 39.0, white blood count 9100. Sodium 135, potassium 4.3, BUN 22, creatinine 0.6, glucose 199, calcium 7.7. OBJECTIVE: Exam reveals lungs to be improved with minimal wheeze. There are no rales or rhonchi. She is confused at times. PLAN: Transfer to the floor, decrease p.o. Xanax, and increase diet to GI soft. cc: MD Kulwant Flynn MD
[2018-11-27] MEDS ORDERED: XANAX PO SCH (09:00)
[2018-11-27] MEDS: ROCEPHIN 1 GM in NS 50 ML IV SCH (09:29)
[2018-11-27] MEDS: ZITHROMAX 500 MG/NS 500 MG/250 ML IVPB IV SCH (16:45)
[2018-11-28] MEDS: SOLU-MEDROL IV SCH (02:47)
[2018-11-28] MEDS: DUONEB (A & A) INH SCH ×4 (03:25→20:30)
[2018-11-28] MEDS: ALBUTEROL NEB INH PRN ×3 (06:18→23:15)
[2018-11-28] MEDS: PROTONIX PO SCH (06:51)
--- NOTE | 2018-11-28 08:16 | PROGRESS NOTE ---
DATE: 11/28/2018 SUBJECTIVE: Vital signs stable with temperature 97.8 degrees, heart rate 92, respirations 16, blood pressure 154/58, O2 saturation on 2 liters nasal oxygen 99%. The patient continues to feel a little better with only rare wheezing. There are no rales or rhonchi. Abdomen is soft with no mass or tenderness. There is no ankle edema. PLAN: Ambulate with physical therapy, change steroids to p.o. and continue IV antibiotics. cc: MD Kulwant Flynn MD
[2018-11-28] MEDS: ROCEPHIN 1 GM in NS 50 ML IV SCH (10:01)
[2018-11-28] MEDS: PREDNISONE PO SCH ×2 (10:06→23:19)
[2018-11-28] MEDS: ZITHROMAX 500 MG/NS 500 MG/250 ML IVPB IV SCH (15:24)
[2018-11-29] MEDS: DUONEB (A & A) INH SCH ×2 (03:10→08:15)
[2018-11-29] MEDS ORDERED: NS 50 ML ONE (05:40)
[2018-11-29] MEDS: PROTONIX PO SCH (06:20)
[2018-11-29 08:09] VITALS: BP 184/89
[2018-11-29] MEDS: PREDNISONE PO SCH (09:35)
[2018-11-29] MEDS: ROCEPHIN 1 GM in NS 50 ML IV SCH (09:35)
--- NOTE | 2018-11-29 12:41 | DISCHARGE SUMMARY ---
ADMISSION DATE: 11/24/2018 DISCHARGE DATE: 11/29/2018 FINAL DIAGNOSES: 1. Respiratory failure, acute. 2. Chronic obstructive pulmonary disease. 3. Early pneumonia. 4. Pulmonary fibrosis. DISCHARGE MEDICATIONS: Albuterol with Atrovent nebulizer treatments q.i.d., prednisone 20 mg b.i.d., Protonix 40 mg 1 daily, Tylenol p.r.n. HISTORY OF PRESENT ILLNESS: This is the first recent [facility] admission for this 78-year- old white female who presented to the emergency room with progressive shortness of breath. She was placed on BiPAP and in intensive care for additional treatment with intravenous antibiotics, nebulizer treatments, steroids. Initial laboratory with hemoglobin of 12.6, hematocrit 38.1, white blood count 9300 with 78% neutrophils. Sodium is 133, potassium 4.5, BUN is 17, creatinine 9, glucose 152. ProBNP is 1762. Troponin T less than 0.01. CPK is 160. Total protein 5.7, albumin 3.8. Plasma lactate 0.7. She was initially placed on BiPAP in Intensive Care Unit. She was given Solu Medrol 80 mg q.8 hours and antibiotics with Rocephin and Zithromax. There was slow improvement over several days. She continued to have wheezing until yesterday. She was moved out of Intensive Care Unit and has progressed well over the last couple of days. O2 saturation on nasal oxygen 2 L is 100%. She has mild bilateral wheeze to auscultation this morning. She states she has this at home most days. She uses oxygen at home and nebulizer treatments as above. She is discharged home on the above medications, to be seen back in the office in 1 week for followup. cc: MD Kulwant Flynn MD
== END 2018-11-29 11:23 | disposition home health service (06) | DRG 190 ==
LOC: ED 09:44 → EDIPHOLD 13:06 → ICU 14:11 → 3N 11-27 13:30
PROVIDERS: ADMIT Internal Medicine; ATTEND Family Medicine
CPT/HCPCS: 71010; 71045; 80048; 80053; 81001; 82550; 82805; 83605; 83735; 83880; 84484; 85025; 85610; 87040; 87275; 87276; 87804; 93005; 94640; 94761; 94799; 96361; 96365; 96367; 96375; 97116; 97162; 97530; 99285; A9270; J0456; J0696; J1940; J2060; J2405; J2930; J3475; J7030; J7506; J7512

== ENCOUNTER 2019-02-26 13:43 | Inpatient (IN) ==
[2019-02-26] MEDS ORDERED: SOLU-MEDROL IV ONE (14:17)
[2019-02-26] MEDS ORDERED: DUONEB (A & A) INH ONE (14:17)
[2019-02-26] MEDS ORDERED: XANAX MISC ONE (14:19)
[2019-02-26] MEDS ORDERED: MAGNESIUM SULFATE 2 GM/S.W.I. 2 GM/50 ML IVPB IV ONE (14:19)
[2019-02-26 14:49] LABS: BE 4.9 mmoll (-3.0-3.0); BLOOD TYPE ARTERIAL; HCO3-(ACT) 28.7 mmoll (20.0-26.0); METHB 1.2 % (0.0-1.5); O2(CT) 17.1 mL/dL (15.0-23.0); O2HB 95.4 % (95.0-99.0); PCO2(98.6) 35 mmHg (35-45); PO2(98.6) 109 mmHg (60-100); SAMPLE BLOOD; SAO2 100.3 % (95.0-100.0); THB 12.6 g/dL (11.5-17.4); pH(98.6) 7.51 (7.35-7.45)
[2019-02-26 14:51] LABS: ALLEN TEST NO; MODALITY CANNULA
--- NOTE | 2019-02-26 15:09 | Diag Imaging Result Doc PS360 ---
EXAM: CHEST-PORTABLE - 02/26/2019 HISTORY: DYSPNEA TECHNIQUE: Portable chest COMPARISON: 02/19/2019 FINDINGS: Heart size is normal. There are apparent mild COPD changes, although the lungs do not appear substantially hyperexpanded at this time. There is minimal atelectasis or infiltrate at the lateral left base. There is no other consolidation, pleural effusion, or pneumothorax identified. Central venous catheter remains in place. There is thoracic dextroscoliosis noted. IMPRESSION: Mild COPD changes. Minimal atelectasis or infiltrate at lateral left base. Electronically signed by Eugene Duenas 02/26/2019 3:06 PM
[2019-02-26 15:14] LABS: BASO# 0.02 X1000 (0.0-0.2); BASO% 0.1 % (0.0-0.8); EOS# 0.09 X1000 (0.0-0.7); EOS% 0.5 % (0.0-10.0); HEMATOCRIT 34.7 % (37.0-47.0); IMM GRAN# 0.18 X1000 (0.0-0.04); LYMPH% 9.5 % (20.5-51.1); MCH 29.1 PG (27-31); MCHC 34.6 g/dL (33-37); MCV 84.2 FL (81-99); MONO# 2.56 X1000 (0.11-0.59); MONO% 14.3 % (1.7-9.3); NEUT# 13.37 X1000 (1.4-6.5); NEUT% 74.6 % (42.2-75.2); PLT 292 X1000 (130-400); RBC 4.12 XMIL (4.2-5.4); RDW 13.1 % (11.5-14.5); WBC 17.92 X1000 (4.8-10.8)
[2019-02-26 15:22] LABS: AGAP 13; ALBUMIN 3.6 g/dL (3.5-5.0); ALKALINE PHOSPHATASE 67 U/L (32-104); BUN 8 mg/dL (8-22); CALCIUM 8.3 mg/dL (8.8-10.2); CHLORIDE 94 mmol/L (98-107); COSMO 260; CREATININE 0.6 mg/dL (0.5-0.9); ESTIMATED GFR > 60; GLUCOSE 116 mg/dL (70-104); GOT 11 U/L (10-30); GPT 13 U/L (10-36); POTASSIUM 3.5 mmol/L (3.5-5.1); SODIUM 130 mmol/L (136-145); TCO2 23 mmol/L (25-35); TOTAL PROTEIN 5.4 g/dL (6.3-8.3)
[2019-02-26] MEDS ORDERED: NS 1,000 ML ONE (15:54)
[2019-02-26] MEDS ORDERED: NS 500 ML IV ONE ×2 (16:09→16:48)
[2019-02-26] MEDS ORDERED: LEVAQUIN 750 MG/D5W 750 MG/150 ML IVPB IV ONE (16:17)
[2019-02-26] MEDS ORDERED: LEVOPHED 8 MG in D5 1/2 NS 250 ML IV SCH (16:30)
[2019-02-26] MEDS ORDERED: DUONEB (A & A) INH PRN (17:11)
[2019-02-26] MEDS ORDERED: ZOFRAN IV PRN (17:11)
[2019-02-26] MEDS ORDERED: PRILOSEC PO SCH (17:11)
[2019-02-26] MEDS ORDERED: TYLENOL PO PRN (17:11)
[2019-02-26] MEDS ORDERED: VANCOMYCIN IV PER PHARMACY MISC SCH (17:15)
[2019-02-26] MEDS ORDERED: LOVENOX SUBQ SCH (18:00)
--- NOTE | 2019-02-26 18:07 | HISTORY AND PHYSICAL ---
PRIMARY CARE PROVIDER: Dr. Roman Goode. CHIEF COMPLAINT: Shortness of breath, coughing up green phlegm. HISTORY OF PRESENT ILLNESS: Ms. Jackie Arce is a 78-year-old female with a medical history of COPD and lymphoma who has received chemotherapy in the past but no chemotherapy in the last few years. She now presents with complaints of shortness of breath that has worsened over the last 2 to 3 days and also with a productive cough with dark green phlegm to samuel color at times. She has been having chills but no documented fevers. She has had severe anxiety with this COPD that she has. White blood cell count is 17,000. She is not really retaining any CO2 on her ABGs. Chest x-ray shows COPD changes but some infiltrates in the left base. She has been placed on 4 liters nasal cannula oxygen and is tolerating that well. Due to the anxiety, they gave her some Xanax, which actually helped really well with her anxiety as well. She will transferred to the ICU. She is a little bit soft on her blood pressure, ranging anywhere from 80s to one teens. It is responding well to IV fluid bolus. PAST MEDICAL HISTORY: 1. Anxiety. 2. COPD. 3. Lymphoma; last chemotherapy treatment I believe was in 2017. She is supposed to follow up with Dr. Villegas for a PET scan sometime this month. PAST SURGICAL HISTORY: 1. Hysterectomy. 2. Cholecystectomy. 3. Port-A-Cath placement on the left chest. 4. Bilateral lens implants. SOCIAL HISTORY: She smokes less than a half a pack per day but has smoked since the age of 17. Denies alcohol or illicit drug use. She lives at home alone. I believe her son is at the bedside. FAMILY HISTORY: Mother had breast cancer and another type of female cancer. Father was an alcoholic. ALLERGIES: Codeine, penicillin, hydrocodone. HOME MEDICATIONS: Have not been reconciled at this time. REVIEW OF SYSTEMS: A 14-point review of systems was completed and all are negative except for those mentioned above in HPI. She does complain of her chest feeling tight from the COPD. PHYSICAL EXAMINATION: VITAL SIGNS: Temperature 101.9 degrees, pulse rate 90, respiratory rate 21, blood pressure 113/94, oxygen saturation 98% on 4 liters nasal cannula oxygen. GENERAL: Ms. Jackie Arce is a 78-year-old female. She is in mild distress and she is slightly anxious but respiratory rate is improved. Her respiratory effort is improved. She is able to answer most questions appropriately. HEENT: Atraumatic, normocephalic. Pupils equal, round, and reactive to light. Extraocular movements intact. Mucous membranes are dry. NECK: Trachea midline. CARDIOVASCULAR: S1, S2, regular rate and rhythm. No rubs, gallops, or murmurs. No lower extremity edema; +2 dorsalis and radial pulses. Negative JVD or carotid bruits. PULMONARY: Clear to auscultate but decreased and tight. Some mild expiratory wheezes noted in the bases. Tolerating 4 liters by nasal cannula. Mild work of breathing noted. GASTROINTESTINAL: Soft, nontender, nondistended. Positive bowel sounds x4. EXTREMITIES: Moves all extremities equally with full range of motion. NEUROLOGIC: Alert and oriented x3, follows commands. Sensory is intact. SKIN: Warm, dry, intact. LABORATORY DATA: White blood cell count 17,000, hemoglobin 12, hematocrit 34, platelet count 292. ABGs: pH of 7.51, PCO2 of 35, PO2 of 109, bicarb 28, base excess 4.9, oxygen saturation 95%, lactate 1; this is on 3 liters nasal cannula oxygen. Sodium 130, potassium 3.5, BUN 8, creatinine 0.6, glucose 116, calcium 8.3, magnesium 1.3, bilirubin 0.20, AST 11, ALT 13. CK 18. Troponin less than 0.01. ProBNP 1253. Albumin 3.6, lactate 0.9. IMAGING: Chest x-ray shows mild COPD changes, minimal atelectasis or infiltrate at the lateral left base. ASSESSMENT AND PLAN: 1. Chronic obstructive pulmonary disease with acute hypoxemic respiratory failure requiring oxygen supplementation. This is secondary to pneumonia, which will be treated. She will get nebulizers, steroids and antibiotics. Pulmonary toilet as well. We will monitor her in the Intensive Care Unit. 2. Hypotension. Could be a precursor to sepsis. Her lactate is normal. She is only mildly tachycardic, which resolved with IV fluid hydration. Levophed if needed. 3. Hypomagnesemia. She received IV magnesium supplementation. Could have partially added to some of the hypotension on admission. 4. Severe anxiety. She received Xanax. This helped. 5. Community-acquired pneumonia. Apparently she presented to [facility] about a week ago with the same complaints but was not admitted at that time. So it could be possible that there is some healthcare related pneumonia as well but it is in the base, especially in the left base. She will be on Levaquin. We have sent for a sputum culture. 6. History of lymphoma. She is supposed to have a followup PET scan this month with Dr. Villegas. She has not had chemotherapy probably since 2017, according to her and her son. 7. DVT prophylaxis with sequential compression devices. Dictated by ARY Coyle for Holland Boykin MD Addendum: Patient seen and examined by myself. Agree with ARY note. It reflects my assessment and plan. Patient is being admitted for acute respiratory failure secondary to COPD exacerbation. Unfortunately this patient continues to smoke. Also she has pneumonia and she was found to have a low blood pressure. So she is septic. Will start broad spectrum antibiotics and send her to ICU. Dr. Goode, her primary care doctor has been notified and will be taking care of her. cc: ARY Coyle MD Robert Allen, MD MTDD
[2019-02-26] MEDS: NS 1,000 ML IV SCH (18:37)
[2019-02-26] MEDS: MAXIPIME 1 GM in NS 50 ML IV SCH (18:37)
[2019-02-26 18:43] LABS: BILIRUBIN URINE NEGATIVE (NEGATIVE); BLOOD URINE NEGATIVE (NEGATIVE); CLARITY CLEAR (CLEAR); COLOR YELLOW; GLUCOSE URINE NEGATIVE (NEGATIVE); KETONE URINE NEGATIVE (NEGATIVE); LEUKOCYTES URINE NEGATIVE (NEGATIVE); NITRITE URINE NEGATIVE (NEGATIVE); PROTEIN URINE NEGATIVE (NEGATIVE); UROBILINOGEN URINE NORMAL
[2019-02-26] MEDS: DUONEB (A & A) INH SCH ×2 (18:48→22:30)
[2019-02-26 18:58] LABS: URINE SOURCE CATH
[2019-02-26 18:59] LABS: URINE BACTERIA NEGATIVE /HFP; URINE CAST NONE SEEN /LPF; URINE CRYSTAL NONE SEEN /HPF; URINE EPITHELIAL CELLS <10 /HPF (<10); URINE RBC <10 /HPF (<10); URINE WBC <10 /HPF (<10); URINE YEAST NONE SEEN /HPF
[2019-02-26] MEDS ORDERED: VANCOMYCIN 1,450 MG in NS 250 ML IV ONE (20:00)
[2019-02-26] MEDS: XANAX PO PRN (21:36)
[2019-02-26] MEDS: SOLU-MEDROL IV SCH (22:25)
[2019-02-27] MEDS: DUONEB (A & A) INH SCH ×5 (03:36→23:14)
[2019-02-27 05:02] LABS: ALLEN TEST YES; BE -0.5 mmoll (-3.0-3.0); BLOOD TYPE ARTERIAL; HCO3-(ACT) 24.5 mmoll (20.0-26.0); METHB 1.6 % (0.0-1.5); O2(CT) 15.7 mL/dL (15.0-23.0); O2HB 96.7 % (95.0-99.0); PCO2(98.6) 39 mmHg (35-45); PO2(98.6) 147 mmHg (60-100); SAMPLE BLOOD; SAO2 99.6 % (95.0-100.0); THB 11.3 g/dL (11.5-17.4)
[2019-02-27 05:09] LABS: MODALITY CANNULA
[2019-02-27] MEDS: NS 1,000 ML IV SCH ×2 (06:07→18:04)
[2019-02-27] MEDS: MAXIPIME 1 GM in NS 50 ML IV SCH ×2 (06:07→18:04)
[2019-02-27] MEDS: SOLU-MEDROL IV SCH ×3 (06:07→21:42)
[2019-02-27 06:20] LABS: HEMATOCRIT 32.9 % (37.0-47.0); HEMOGLOBIN 11.1 g/dL (12.0-16.0); IMM GRAN# 0.15 X1000 (0.0-0.04); IMM GRAN% 1.2 % (0.0-0.5); LYMPH% 7.2 % (20.5-51.1); MCH 28.8 PG (27-31); MCHC 33.7 g/dL (33-37); MCV 85.5 FL (81-99); MONO# 0.52 X1000 (0.11-0.59); MONO% 4.1 % (1.7-9.3); MPV 10.2 FL (7.4-10.4); NEUT# 11.01 X1000 (1.4-6.5); NEUT% 87.5 % (42.2-75.2); PLT 256 X1000 (130-400); RBC 3.85 XMIL (4.2-5.4); RDW 13.2 % (11.5-14.5); WBC 12.58 X1000 (4.8-10.8)
[2019-02-27 06:59] LABS: LYMPHS 2 % (21-51); MONO 4 % (1-9); SEGS 94 % (42-75)
[2019-02-27] MEDS ORDERED: PROTONIX PO SCH (07:00)
[2019-02-27 07:02] LABS: AGAP 13; BUN 10 mg/dL (8-22); CALCIUM 7.6 mg/dL (8.8-10.2); CHLORIDE 102 mmol/L (98-107); COSMO 277; CREATININE 0.6 mg/dL (0.5-0.9); ESTIMATED GFR > 60; GLUCOSE 178 mg/dL (70-104); POTASSIUM 3.9 mmol/L (3.5-5.1); SODIUM 137 mmol/L (136-145); TCO2 22 mmol/L (25-35)
--- NOTE | 2019-02-27 08:40 | PROGRESS NOTE ---
DATE: 02/27/2019 SUBJECTIVE: The patient is a 78-year-old white female with COPD who became more short of breath over the last couple of days and presented to the emergency room at [facility] last night. She was transferred to [facility] and admitted for treatment of pneumonia and for pulmonary consultation. She has had a productive cough with dark green sputum. She has been having chills, but no definite fever. She has severe anxiety with COPD, and often hyperventilates. White blood count [place] [address]. Chest x-ray showed mild infiltrate at the left base. Initial blood gases revealed pH 7.51, pO2 109, pCO2 35 on 3 L nasal oxygen. She uses O2 chronically at home. She was admitted to ICU last evening, and Dr. Galaviz was consulted. Blood cultures were done. VITAL SIGNS: Temperature 98.4 degrees, heart rate 78, respirations 23, blood pressure 121/80, and O2 saturation on 3 L nasal oxygen 100%. LABORATORY: White blood count has come down to 12,000. Blood gases this morning revealed pH 7.40, PO2 147, pCO2 39 on 3 L nasal oxygen. PLAN: She is currently on cefepime and vancomycin. She may be transferred to the floor this afternoon. cc: Roman Goode MD
[2019-02-27] MEDS ORDERED: KLOR-CON PO SCH (09:00)
[2019-02-27] MEDS ORDERED: LASIX PO SCH (09:00)
[2019-02-27] MEDS: XANAX PO PRN ×2 (09:05→21:42)
[2019-02-27] MEDS ORDERED: NS 500 ML IV ONE (09:27)
[2019-02-27] MEDS: DUONEB (A & A) INH PRN (09:32)
[2019-02-27] MEDS ORDERED: TYLENOL PO PRN (09:38)
[2019-02-27] MEDS ORDERED: ZOFRAN IV PRN (09:45)
[2019-02-27] MEDS ORDERED: LEVOPHED 8 MG in D5 1/2 NS 250 ML IV SCH (10:00)
--- NOTE | 2019-02-27 13:54 | PULMONOLOGY CONSULTATION ---
DATE: 02/27/2019 REQUESTING PHYSICIAN: Dr. Mcgee. REASON FOR CONSULTATION: COPD exacerbation. HISTORY OF PRESENT ILLNESS: Ms. Arce is a 78-year-old with COPD, ongoing tobacco use, with prior treatment for lymphoma, who presented to the emergency room with several-day history of increased cough, increased sputum production, increased shortness of breath with increasing anxiety. The patient denies overt fevers or chills. The patient's blood pressure has been marginal, and she is currently receiving saline boluses. She is currently awake and alert. She has mild work of breathing. PAST MEDICAL HISTORY PROBLEM LIST: 1. Chronic obstructive pulmonary disease. 2. Chronic hypoxemic respiratory failure. 3. Ongoing tobacco use. 4. Lymphoma, being managed by Dr. Emelina Mishra. 5. History of deep vein thrombosis. 6. History of abdominal aortic aneurysm. 7. Dyslipidemia. 8. Status post cholecystectomy. 9. Osteoporosis. 10. Status post hysterectomy. 11. Removal of a mass in the left upper quadrant. Pathology consistent with low-grade lymphoma. SOCIAL HISTORY: Ongoing tobacco use. No alcohol use listed. FAMILY HISTORY: Notable for gynecologic cancers. REVIEW OF SYSTEMS: Notable for increased cough, increased shortness of breath, increased purulent sputum production, increased anxiety, generalized weakness. PHYSICAL EXAMINATION: General: Reveals a well-developed, well-nourished white female in no distress. Vital Signs: Blood pressure 83/65, heart rate 89, respiratory rate 22, oxygen saturation 100% on 3 L per nasal cannula. HEENT: Pupils are equal and reactive. Oropharynx is clear. Neck: Supple. Chest: Reveals scattered rhonchi and diffuse wheezing throughout all lung hanna. Cardiac Exam: S1, S2. Abdomen: Soft. Extremities: Slightly cool to the touch. LABORATORIES: Arterial blood gas in the emergency room yesterday revealed a pH 7.51, pCO2 of 35, PO2 of 109 with a carboxyhemoglobin level of 3.7. Chemistries: Sodium 137, potassium 3.9, chloride 102, bicarbonate 22. BUN 10, creatinine 0.6, glucose 178. White blood count 12.6, hemoglobin 11.1, platelet count 256,000. IMAGING: Chest x-ray reveals mild infiltrate at the left base. IMPRESSION: A 78-year-old with chronic obstructive pulmonary disease, lymphoma, ongoing tobacco use with chronic obstructive pulmonary disease exacerbation, mild pneumonia comma mild hypotension, chronic hypoxemic respiratory failure, ongoing tobacco use. RECOMMENDATION: 1. Agree with broad spectrum antibiotics, which are currently being utilized. 2. Continue bronchodilators and steroids. 3. We will check immunoglobulin level. With lymphoma, she may be immunoglobulin deficient. 4. Encourage patient to discontinue tobacco. 5. Routine oxygen protocol. 6. Prognosis guarded. cc: MD Roman Tovar MD
[2019-02-27] MEDS ORDERED: LEVAQUIN 750 MG/D5W 750 MG/150 ML IVPB IV SCH (16:30)
[2019-02-27] MEDS: LOVENOX SUBQ SCH (18:04)
[2019-02-28] MEDS: ROBITUSSIN-DM PO PRN (01:23)
[2019-02-28] MEDS: DUONEB (A & A) INH SCH ×7 (03:39→23:50)
[2019-02-28 04:40] LABS: ALLEN TEST YES; BE -2.3 mmoll (-3.0-3.0); BLOOD TYPE ARTERIAL; HCO3-(ACT) 23.1 mmoll (20.0-26.0); METHB 1.3 % (0.0-1.5); O2(CT) 16.6 mL/dL (15.0-23.0); O2HB 96.6 % (95.0-99.0); PCO2(98.6) 38 mmHg (35-45); PO2(98.6) 105 mmHg (60-100); SAMPLE BLOOD; SAO2 99.3 % (95.0-100.0); THB 12.1 g/dL (11.5-17.4); pH(98.6) 7.38 (7.35-7.45)
[2019-02-28 04:41] LABS: MODALITY CANNULA
[2019-02-28 04:49] LABS: BASO# 0.04 X1000 (0.0-0.2); BASO% 0.2 % (0.0-0.8); EOS# 0.01 X1000 (0.0-0.7); HEMATOCRIT 32.9 % (37.0-47.0); HEMOGLOBIN 11.1 g/dL (12.0-16.0); IMM GRAN% 3.1 % (0.0-0.5); LYMPH# 1.48 X1000 (1.2-3.4); LYMPH% 6.6 % (20.5-51.1); MCH 29.1 PG (27-31); MCHC 33.7 g/dL (33-37); MCV 86.1 FL (81-99); MONO# 0.95 X1000 (0.11-0.59); MONO% 4.2 % (1.7-9.3); MPV 9.7 FL (7.4-10.4); NEUT# 19.28 X1000 (1.4-6.5); NEUT% 85.9 % (42.2-75.2); PLT 287 X1000 (130-400); RBC 3.82 XMIL (4.2-5.4); RDW 13.4 % (11.5-14.5); WBC 22.46 X1000 (4.8-10.8)
[2019-02-28 05:39] LABS: AGAP 15; BUN 13 mg/dL (8-22); CALCIUM 7.1 mg/dL (8.8-10.2); CHLORIDE 103 mmol/L (98-107); COSMO 278; CREATININE 0.7 mg/dL (0.5-0.9); ESTIMATED GFR > 60; GLUCOSE 169 mg/dL (70-104); POTASSIUM 4.5 mmol/L (3.5-5.1); SODIUM 137 mmol/L (136-145); TCO2 19 mmol/L (25-35)
[2019-02-28] MEDS: PROTONIX PO SCH (06:05)
[2019-02-28] MEDS: SOLU-MEDROL IV SCH (06:05)
[2019-02-28] MEDS: MAXIPIME 1 GM in NS 50 ML IV SCH ×2 (06:05→18:04)
[2019-02-28 06:30] LABS: BANDS 2 % (0-1); MONO 6 % (1-9); SEGS 92 % (42-75)
--- NOTE | 2019-02-28 07:40 | Diag Imaging Result Doc PS360 ---
CHEST-PORTABLE - 02/28/2019 INDICATION: abnormal exam COMPARISON: 02/26/2019 FINDINGS: Stable left chest port in good position. Heart size and pulmonary vascularity is normal. No infiltrates or edema. IMPRESSION: No change from prior. Electronically signed by Danilo Camacho 02/28/2019 7:38 AM
[2019-02-28] MEDS ORDERED: VANCOMYCIN 1 GM/NS 1 GM/250 ML IVPB IV SCH (08:00)
[2019-02-28] MEDS: NS 1,000 ML IV SCH (08:39)
[2019-02-28] MEDS: TESSALON PO SCH ×3 (08:39→18:03)
[2019-02-28] MEDS: VANCOMYCIN 1 GM/NS 1 GM/250 ML IVPB IV SCH (08:39)
[2019-02-28] MEDS: LASIX PO SCH (08:40)
[2019-02-28] MEDS: KLOR-CON PO SCH (08:40)
[2019-02-28] MEDS ORDERED: PREDNISONE PO SCH (09:00)
--- NOTE | 2019-02-28 09:12 | PROGRESS NOTE ---
DATE: 02/28/2019 OBJECTIVE: Vital Signs: Temperature 98.3 degrees, heart rate 99, respirations 21, blood pressure 105/68. O2 saturation on 3 L nasal oxygen 91%. Lungs: Fairly clear with no rhonchi or rales. Abdomen: Soft. Appetite is good. LABORATORY DATA: White blood count up at 22,400. Hematocrit is 32.9. ASSESSMENT: Clinically, the patient is improved. Cough is better. She seems less short of breath. Elevation in white count may be due to the IV steroids. PLAN: Transferred to the floor and continue current medications except change steroid to p.o. prednisone. cc: Roman Goode MD
[2019-02-28] MEDS: PREDNISONE PO SCH ×2 (10:25→23:38)
[2019-02-28] MEDS: XANAX PO PRN ×2 (10:45→18:03)
--- NOTE | 2019-02-28 16:48 | Diag Imaging Result Doc PS360 ---
EXAM: CHEST-2 VIEWS INDICATION: pneumonia TECHNIQUE: 2 views COMPARISON: 02/28/2019 FINDINGS: The left chest port is in stable position. Lungs appear somewhat hyperinflated suggesting COPD. No discrete consolidation is identified. The cardiac silhouette is stable. IMPRESSION: Stable chest with no definite acute pathology by plain radiograph. Electronically signed by Dave Sumner 02/28/2019 4:46 PM
[2019-02-28] MEDS: LOVENOX SUBQ SCH (18:04)
[2019-03-01] MEDS: DUONEB (A & A) INH SCH ×5 (03:50→19:40)
[2019-03-01] MEDS: ROBITUSSIN-DM PO PRN (04:43)
[2019-03-01] MEDS: MAXIPIME 1 GM in NS 50 ML IV SCH ×3 (04:43→17:52)
[2019-03-01] MEDS: PROTONIX PO SCH ×2 (04:43→06:39)
[2019-03-01] MEDS: NS 1,000 ML IV SCH ×2 (04:51→04:52)
[2019-03-01 06:51] LABS: BASO# 0.02 X1000 (0.0-0.2); BASO% 0.1 % (0.0-0.8); EOS# 0.01 X1000 (0.0-0.7); HEMATOCRIT 34.7 % (37.0-47.0); HEMOGLOBIN 11.3 g/dL (12.0-16.0); IMM GRAN# 1.13 X1000 (0.0-0.04); IMM GRAN% 5.4 % (0.0-0.5); LYMPH# 0.87 X1000 (1.2-3.4); LYMPH% 4.2 % (20.5-51.1); MCH 28.8 PG (27-31); MCHC 32.6 g/dL (33-37); MCV 88.5 FL (81-99); MONO% 5.3 % (1.7-9.3); MPV 9.7 FL (7.4-10.4); NEUT# 17.76 X1000 (1.4-6.5); PLT 279 X1000 (130-400); RBC 3.92 XMIL (4.2-5.4); RDW 13.7 % (11.5-14.5); WBC 20.89 X1000 (4.8-10.8)
[2019-03-01] MEDS: TESSALON PO SCH ×3 (08:26→17:51)
[2019-03-01] MEDS: XANAX PO PRN ×3 (08:26→21:40)
[2019-03-01] MEDS: KLOR-CON PO SCH (08:26)
[2019-03-01] MEDS: PREDNISONE PO SCH ×2 (09:31→21:40)
[2019-03-01] MEDS: LASIX PO SCH (09:34)
[2019-03-01 09:44] LABS: ALLEN TEST YES; BE 0.1 mmoll (-3.0-3.0); BLOOD TYPE ARTERIAL; METHB 1.4 % (0.0-1.5); O2(CT) 16.4 mL/dL (15.0-23.0); O2HB 96.4 % (95.0-99.0); PCO2(98.6) 49 mmHg (35-45); PO2(98.6) 105 mmHg (60-100); SAMPLE BLOOD; SAO2 99.2 % (95.0-100.0); pH(98.6) 7.34 (7.35-7.45)
[2019-03-01 09:45] LABS: MODALITY CANNULA
--- NOTE | 2019-03-01 09:52 | PROGRESS NOTE ---
DATE: 03/01/2019 Subjective: Ms. Arce is doing fair. Complaining of more short of breath, cough with scanty sputum production. Decreased exercise tolerance. No high-grade fever or chills. Denied any nausea or vomiting. The patient is very anxious to go home. No dysuria or hematuria. The patient does have Nunez catheter. Known case of advanced COPD, hypoxemic respiratory failure and lymphoma, admitted with hypoxemic respiratory failure, COPD exacerbation, possible left lower lobe infiltrate. OBJECTIVE: Vital signs: Noted. General: Patient is tachypneic. Skin: No rash or petechiae. Neck: Supple. No JVD. Lungs: Bilateral expiratory wheezing. Cardiovascular: S1 and S2 heard. Abdomen: Soft, nontender. Bowel sounds present. Extremities: No cyanosis, clubbing. No acute DVT. Central nervous system: Alert, awake able to move all 4 limbs. IMAGING: Her chest x-ray done yesterday reviewed. Admission history and physical and pulmonary consult noted. LABORATORY DATA: Done today, WBC count 20.89, hemoglobin 11.3, hematocrit 34.7, blood gas done yesterday pH 7.38, pCO2 38, PO2 was 105. Electrolytes done yesterday noted calcium was 7.1. Chest x-ray results reviewed. CONSIDERATION: 1. Acute exacerbation of chronic obstructive pulmonary disease. 2. Hypoxemic respiratory failure. 3. History of lymphoma. 4. History of deep venous thrombosis. 5. Anxiety. PLAN: Patient is not ready to go home yet will continue steroid, IV antibiotics, pulmonary toilet, close observation Overall plan discussed with the patient and she is in agreement. cc: MD Roman Orourke MD
[2019-03-01] MEDS: LOVENOX SUBQ SCH (17:51)
[2019-03-01] MEDS: VANCOMYCIN 1 GM/NS 1 GM/250 ML IVPB IV SCH (21:39)
[2019-03-02] MEDS: DUONEB (A & A) INH SCH ×6 (00:05→19:20)
[2019-03-02] MEDS: NS 1,000 ML IV SCH (06:13)
[2019-03-02] MEDS: PROTONIX PO SCH (06:13)
[2019-03-02] MEDS: MAXIPIME 1 GM in NS 50 ML IV SCH ×2 (06:13→18:15)
[2019-03-02 06:39] LABS: BASO# 0.01 X1000 (0.0-0.2); BASO% 0.1 % (0.0-0.8); EOS# 0.01 X1000 (0.0-0.7); EOS% 0.1 % (0.0-10.0); HEMOGLOBIN 10.9 g/dL (12.0-16.0); IMM GRAN# 0.72 X1000 (0.0-0.04); IMM GRAN% 5.4 % (0.0-0.5); LYMPH# 0.81 X1000 (1.2-3.4); MCH 28.8 PG (27-31); MCHC 32.1 g/dL (33-37); MCV 89.9 FL (81-99); MONO# 0.74 X1000 (0.11-0.59); MONO% 5.5 % (1.7-9.3); MPV 9.5 FL (7.4-10.4); NEUT% 82.9 % (42.2-75.2); PLT 244 X1000 (130-400); RBC 3.78 XMIL (4.2-5.4); RDW 13.7 % (11.5-14.5); WBC 13.39 X1000 (4.8-10.8)
[2019-03-02 07:08] LABS: BANDS 2 % (0-1); LYMPHS 6 % (21-51); SEGS 92 % (42-75)
[2019-03-02 07:32] LABS: AGAP 12; ALB/GLOB RATIO 1.8; ALBUMIN 3.3 g/dL (3.5-5.0); ALKALINE PHOSPHATASE 52 U/L (32-104); BUN 16 mg/dL (8-22); CHLORIDE 99 mmol/L (98-107); COSMO 283; CREATININE 0.7 mg/dL (0.5-0.9); ESTIMATED GFR > 60; GLUCOSE 173 mg/dL (70-104); GOT 12 U/L (10-30); GPT 20 U/L (10-36); MAGNESIUM 1.6 mg/dL (1.5-2.7); POTASSIUM 3.7 mmol/L (3.5-5.1); SODIUM 139 mmol/L (136-145); TCO2 28 mmol/L (25-35); TOTAL BILIRUBIN 0.16 mg/dL (0.20-1.00); TOTAL PROTEIN 5.1 g/dL (6.3-8.3)
[2019-03-02 07:33] LABS: CALCIUM 6.8 mg/dL (8.8-10.2)
--- NOTE | 2019-03-02 08:37 | Diag Imaging Result Doc PS360 ---
EXAM: CHEST-2 VIEWS INDICATION: hypoxia TECHNIQUE: 2 views COMPARISON: 02/28/2019 FINDINGS: The left chest port is in stable position. The lungs remain hyperinflated suggesting COPD. No new consolidation is identified. Cardiac silhouette is stable. IMPRESSION: Stable chest. Electronically signed by Dave Sumner 03/02/2019 8:35 AM
[2019-03-02] MEDS: KLOR-CON PO SCH (09:26)
[2019-03-02] MEDS: TESSALON PO SCH ×3 (09:26→18:16)
[2019-03-02] MEDS: XANAX PO PRN (09:26)
[2019-03-02] MEDS: PREDNISONE PO SCH ×2 (09:26→21:57)
[2019-03-02] MEDS: LASIX PO SCH (09:26)
[2019-03-02] MEDS ORDERED: LASIX IV ONE (09:50)
[2019-03-02] MEDS ORDERED: MAGNESIUM SULFATE 2 GM/S.W.I. 2 GM/50 ML IVPB IV ONE (09:51)
--- NOTE | 2019-03-02 10:32 | PROGRESS NOTE ---
DATE: 03/02/2019 SUBJECTIVE: Ms. Jackie Arce is feeling some better. No fever or chills. Does have cough with scanty sputum production. Her shortness of breath is getting better. Compared to yesterday, the patient is less anxious, no nausea or vomiting. Oral intake is fair. The patient is eager to go home. But clinically I told her I do not think she is. OBJECTIVE: Vital signs: Noted. Neck: Supple. No JVD. Lungs: Bibasilar crepitations, occasional wheezing. CVS: S1 and S2 heard. Abdomen: Soft, nontender. Bowel sounds present. Extremities: No cyanosis, clubbing. No acute DVT. ALUMINUM SIDING APPLICATOR: Alert, awake, able to move all 4 limbs. LABORATORY DATA: Done today, noted. ProBNP was elevated. Chest x-ray reviewed. I am going to give her a small dose of IV Lasix, supplement her magnesium. It was low-normal. Continue rest of the treatment. Close observation. I am going to discontinue Nunez catheter. The patient agreed to stay 1 more day as she is getting better, but not ready to go home yet. PROBLEMS: 1. Chronic obstructive pulmonary disease exacerbation. 2. Acute hypoxemic respiratory failure. 3. Hypercarbic respiratory failure. 4. Hypocalcemia. 5. Anxiety. 6. History of lymphoma. Encouraged patient not to restart smoking. PLAN: Laboratories and medication noted. cc: MD Roman Orourke MD
[2019-03-02] MEDS: LOVENOX SUBQ SCH (18:16)
[2019-03-03] MEDS: DUONEB (A & A) INH SCH ×3 (04:00→08:45)
[2019-03-03] MEDS: DUONEB (A & A) INH PRN (06:00)
[2019-03-03] MEDS: NS 1,000 ML IV SCH ×2 (06:21→06:28)
[2019-03-03] MEDS: MAXIPIME 1 GM in NS 50 ML IV SCH (06:21)
[2019-03-03] MEDS: PROTONIX PO SCH (06:21)
[2019-03-03] MEDS ORDERED: KEFLEX PO SCH (08:00)
[2019-03-03] MEDS: PREDNISONE PO SCH (08:08)
[2019-03-03] MEDS: LASIX PO SCH (08:08)
[2019-03-03] MEDS: KLOR-CON PO SCH (08:09)
[2019-03-03] MEDS: TESSALON PO SCH (08:09)
[2019-03-03] MEDS: XANAX PO PRN (08:14)
[2019-03-03 08:18] VITALS: BP 175/84
--- NOTE | 2019-03-03 10:06 | DISCHARGE SUMMARY ---
ADMISSION DATE: 02/26/2019 DISCHARGE DATE: 03/03/2019 FINAL DIAGNOSES: 1. Acute respiratory failure. 2. Severe chronic obstructive pulmonary disease. 3. Left lower lobe pneumonia. 4. Chronic anxiety. DISCHARGE MEDICATIONS: Usual medication at home plus prednisone 20 mg b.i.d., and Keflex 500 mg q.i.d. HISTORY: This is one of several [facility] admissions for this 78-year-old, white female who became progressively more short of breath and anxious the day prior to admission. She presented to the emergency room and chest x-ray showed left lower lobe pneumonia. She was admitted for further evaluation and treatment to intensive care unit. INITIAL LABORATORY: Hematocrit 34.7, white blood count 17,900, pH 7.51, pCO2 35, PO2 109, bicarb 28.7 on 3 L nasal oxygen. Sodium 130, potassium 3.5, BUN 8, creatinine 0.6, glucose 116, calcium 8.3, total protein 5.4. ProBNP 1253, magnesium 1.3. HOSPITAL COURSE: She was placed on vancomycin and cefepime. Blood cultures revealed no growth. She slowly improved over a few days. She was transferred to the floor late last week. Laboratory yesterday revealed increase in proBNP to 2692. Calcium was low at 6.8. BUN was 16, creatinine 0.7. Total protein was 5.3 and albumin 3.3. This morning, she is feeling better and is eating well. She is discharged home on the above medications to be seen back in the office in 1 week for followup. cc: Roman Goode MD
== END 2019-03-03 09:18 | disposition home or self-care (01) | DRG 871 ==
LOC: P.ED 13:43 → P.ICU 17:24 → SUATTDRO 17:24 → ICU 21:47 → 4N 02-28 15:13
PROVIDERS: ADMIT Family Medicine; ATTEND Family Medicine
CPT/HCPCS: 71010; 71020; 71045; 71046; 80048; 80053; 81001; 82550; 82784; 82805; 82948; 83605; 83735; 83880; 84484; 85025; 87040; 94640; 94761; 96365; 96367; 96375; 97116; 97162; 97530; 99285; A9270; J0692; J1650; J1940; J1956; J2920; J2930; J3370; J3475; J7030; J7040; J7050; J7506; J7512; XXXXX

== ENCOUNTER 2019-03-30 15:32 | Inpatient (IN) ==
[2019-03-30] MEDS ORDERED: NS 1,000 ML IV ONE ×2 (15:52→22:49)
[2019-03-30] MEDS: DUONEB (A & A) INH ONE ×2 (15:57→17:54)
[2019-03-30] MEDS ORDERED: ZITHROMAX PO ONE (15:57)
[2019-03-30] MEDS ORDERED: ZOFRAN IV ONE (15:57)
[2019-03-30] MEDS ORDERED: SOLU-MEDROL IV ONE (15:57)
[2019-03-30] MEDS ORDERED: LEVAQUIN 500 MG/D5W 500 MG/100 ML IVPB IV ONE (15:59)
--- NOTE | 2019-03-30 16:04 | PROVIDER DOCUMENTATION ---
HPI-Respiratory General - General Chief Complaint: Altered Mental Status Stated Complaint: AMS,COUGHING,COPD Time Seen by Provider: 03/30/19 15:49 Source: family Allergies/Adverse Reactions: Patient Allergies Allergy/AdvReac Type Severity Reaction Status Date / Time codeine [Codeine] Allergy RASH Verified 03/30/19 17:49 hydrocodone bitartrate * Allergy VOMITING Verified 03/30/19 17:49 [From Lortab] Penicillins Allergy SWELLING Verified 03/30/19 17:49 Sulfa (Sulfonamide Allergy ITCHING Verified 03/30/19 17:49 Antibiotics) [Sulfa(Sulfonamide Antibiotics)] Home Medications: Home Medication List Medication Instructions Recorded Confirmed Last Taken Type Albuterol [Albuterol Neb] 2.5 mg INH [id number] 07/22/15 02/28/19 07/25/15 05:00 History Ipratropium [place] Neb [Atrovent 0.5 mg INH 4XDAY 07/22/15 02/28/19 07/25/15 05 :00 History Neb] Acetaminophen [Tylenol] 650 mg PO Q6H PRN PRN tablet 11/29/18 02/28/19 Unknown Rx Albuterol 2.5MG/Ipratrop 0.5MG 3 ml INH [id number] #120 neb 11/29/18 02/27/19 Unknown Rx [Duoneb (A & A)] Pantoprazole [Protonix] 40 mg PO DAILY@0700 #30 tab 11/29/18 02/27/19 Unknown Rx Furosemide 20 mg PO DAILY 02/19/19 02/27/19 Unknown History Potassium Chloride E.r. [Micro-K] 10 meq PO DAILY 02/19/19 02/27/19 Unknown History Alprazolam 1 tab PO Q12H PRN PRN 02/27/19 02/27/19 Unknown History Alprazolam 1 tab PO TID 02/27/19 02/27/19 Unknown History Bupropion HCl [Bupropion Xl] 150 mg PO DAILY 02/27/19 02/27/19 Unknown History Montelukast [Singulair] 10 mg PO DAILY 02/27/19 02/27/19 Unknown History Prednisone 10 mg PO DIRECTED 02/27/19 02/27/19 Unknown History Varenicline [Chantix] 0.5 mg PO DAILY 02/27/19 02/27/19 Unknown History Cephalexin [Keflex] 500 mg PO 4XDAY #20 cap 03/03/19 Unknown Rx Prednisone 20 mg PO BID #30 tab 03/03/19 Unknown Rx - History of Present Illness-Resp Nature of Presenting Problem: HPI: Pt is brought to ED by mary alice who is providing history. he states that for the past 3 days his mother has been having worsening productive cough, wheezing. She also has been taking non sensical, she is able to speak, but her words do not make sense, no slurring or words, or one sided weakness. She has also been complaining of nausea no vomiting. She has mccloud to her mouth and face from 1 week ago, was seen by her doctor and given mupirocin and doxycycline, but has not been able to tolerate the RX Quality of Pain: reports: none Severity in ED: reports: moderate Onset/Duration: reports: 3 days ago Timing: reports: still present Exposure: reports: unknown cause Cough Quality/Degree: reports: moderate, productive cough, sputum. denies: blood streaked sputum Episode Frequency: chronic episodes Current Respiratory Medication Therapy: Initiated albuterol/atrovent inhale, Initiated A/A nebulizer, Initiated steroid inhaler Modifying Factors: improves with: exertion, albuterol inhaler, albuterol nebulizer Associated Symptoms: reports: cough, shortness of breath, wheezing. denies: chest pain/soreness, dizziness Similar Symptoms Previously?: Yes Recently seen or treated by another doctor?: Yes Review of Systems - Adult - REVIEW OF SYSTEMS - ADULT Constitutional: reports: no symptoms reported Eyes: reports: no symptoms reported Ears, Nose, Mouth & Throat: reports: no symptoms reported Cardiovascular: reports: no symptoms reported Respiratory: reports: see HPI Gastrointestinal: reports: no symptoms reported Genitourinary: reports: no symptoms reported Musculoskeletal: reports: no symptoms reported Integumentary: reports: no symptoms reported Neurological: reports: no symptoms reported Psychiatric: reports: no symptoms reported Endocrine: reports: no symptoms reported Hematologic/Lymphatic: reports: no symptoms reported Allergic/Immunologic: reports: no symptoms reported All Other Systems: Reviewed and Negative Past History - Adult - PAST MEDICAL HISTORY-ADULT Review of Records: reports: Old Records Reviewed, Nursing Assessment Review, Medications Reviewed, Social history reviewed & non-contributory. Major Childhood Illnesses: reports: denies history Cardiovascular: reports: CHF, HTN Respiratory: reports: asthma, COPD Gastrointestinal: reports: denies history Obstetrical/Gynecological: reports: denies history Genitourinary: reports: denies history Musculoskeletal: reports: denies history Neurological: reports: denies history Endocrine/Immune: reports: Lymphoma Other Conditions: reports: denies history - PRIOR SURGERIES/PROCEDURES Surgical/Procedure History: reports: hysterectomy, other - PRIOR HOSPITALIZATIONS Prior Hospitalizations: reports: for other non-related - IMMUNIZATION STATUS Childhood Immunizations: See Nurse Assessment Flu Vaccine: See Nurse Assessment - FAMILY HISTORY Family History: reviewed, not pertinent - SOCIAL HISTORY Smoking: quit greater than 1 year Substance Use: none/never Alcohol Use Frequency: never Living Situation: family Physical Exam-General - PHYSICAL EXAM-ADULT Initial Vital Signs Reviewed: Yes - CONSTITUTIONAL General Appearance: mild distress, lethargic, slow to respond - EYES Eyes: PERRL/EOMI, pink conjunctivae - HEAD, EARS, NOSE, MOUTH & THROAT HENMT: normocephalic/atraumatic, moist mucous membranes - NECK Neck: full range of motion - RESPIRATORY Respiratory: chest non-tender, decreased breath sounds, crackles, rales, rhonchi , wheezing. negative: lungs clear, normal breath sounds, respiratory distress - CARDIOVASCULAR Cardiovascular: normal peripheral pulses, regular rate, rhythm, tachycardia - GASTROINTESTINAL (ABDOMEN) Abdominal Exam: normal bowel sounds, non tender, soft. negative: guarding, rigid, rebound, tenderness - MUSCULOSKELETAL Back Exam: normal inspection, no CVA tenderness Extremity: normal range of motion, non-tender, normal gait Peripheral Pulses: radial (R): 2+, radial (L): 2+, dorsalis-pedis (R): 2+, dorsalis-pedis (L): 2+ - SKIN Integumentary: normal color, normal turgor, warm/dry - PSYCHIATRIC Psych/Mental Status: disoriented x 3. negative: normal mood/affect, normal thought content, normal thought process - HEART Score HEART Score: History: Slightly Suspicious HEART Score: ECG: Normal HEART Score: Age: > or = 65 Years HEART Score: Risk Factors for Atherosclerotic Disease: 1 or 2 Risk Factors HEART Score: Troponin: < or = Normal Limit Total HEART Score:: 3 Progress - PLAN OF CARE/RESULTS Progress/Plan/Lab Results: Vital Signs - 8 hr 03/30/19 15:37 03/30/19 17:40 03/30/19 17:50 Temperature 97.6 F Pulse Rate 99 H Respiratory Rate 18 Blood Pressure 155/98 O2 Sat by Pulse Oximetry 99 97 98 03/30/19 17:55 03/30/19 18:00 03/30/19 18:10 Temperature Pulse Rate 99 H Respiratory Rate 22 Blood Pressure O2 Sat by Pulse Oximetry 100 100 Laboratory Results - last 24 hr 03/30/19 03/30/19 03/30/19 16:40 16:40 16:40 WBC 9.78 RBC 4.51 Hgb 13.1 Hct 38.3 MCV 84.9 MCH 29.0 MCHC 34.2 RDW Std Deviation 13.9 Plt Count 170 MPV 10.0 Immature Gran % (Auto) 0.2 Neut % (Auto) 78.1 H Lymph % (Auto) 11.8 L Mclean % (Auto) 9.2 Eos % (Auto) 0.6 Baso % (Auto) 0.1 Immature Gran # (Auto) 0.02 Neut # (Auto) 7.64 H Lymph # (Auto) 1.15 L Mclean # (Auto) 0.90 H Eos # (Auto) 0.06 Baso # (Auto) 0.01 Specimen Type Sample Site pH pCO2 pO2 HCO3 Base Excess Oxyhemoglobin ABG O2 Sat (Calculated) ABG O2 Saturation ABG Carboxyhemoglobin ABG Methemoglobin Russel Test A-a O2 Difference Total Hemoglobin Lactate Blood Gas Modality FiO2 % Sodium 130 L Potassium 3.0 L Chloride 90 L Carbon Dioxide 27 Anion Gap 13 BUN 6 L Creatinine 0.7 Estimated GFR/1.73 m2 > 60 BUN/Creatinine Ratio 9 Glucose 121 H Calculated Osmolality 260 Calcium 7.7 L Total Bilirubin 0.58 AST 17 ALT 18 Alkaline Phosphatase 56 Creatine Kinase 64 Troponin T < 0.010 [id number]-T-[id number] Pept Total Protein 5.4 L Albumin 4.0 Globulin 1.4 Albumin/Globulin Ratio 2.9 Plasma Lactate Urine Source Urine Color Urine Turbidity Urine pH Ur Specific [place] Urine Protein Ur Glucose (Stick) Ur Ketones (Stick) Urine Blood Urine Nitrite Urine Bilirubin Urobilinogen Dipstick Urine Leukocytes Urine WBC (Auto) Urine RBC (Auto) U Epithel Cells (Auto) Urine Bacteria (Auto) 03/30/19 03/30/19 03/30/19 16:40 16:40 17:45 WBC RBC Hgb Hct MCV MCH MCHC RDW Std Deviation Plt Count MPV Immature Gran % (Auto) Neut % (Auto) Lymph % (Auto) Mclean % (Auto) Eos % (Auto) Baso % (Auto) Immature Gran # (Auto) Neut # (Auto) Lymph # (Auto) Mclean # (Auto) Eos # (Auto) Baso # (Auto) Specimen Type ARTERIAL Sample Site L RADIAL pH 7.44 pCO2 43 pO2 74 HCO3 28.3 H Base Excess 4.4 H Oxyhemoglobin 94.4 L ABG O2 Sat (Calculated) 17.8 ABG O2 Saturation 97.6 ABG Carboxyhemoglobin 2.20 ABG Methemoglobin 1.0 Russel Test YES A-a O2 Difference 22.0 Total Hemoglobin 13.4 Lactate 0.60 Blood Gas Modality ROOM AIR FiO2 % 21.0 Sodium Potassium Chloride Carbon Dioxide Anion Gap BUN Creatinine Estimated GFR/1.73 m2 BUN/Creatinine Ratio Glucose Calculated Osmolality Calcium Total Bilirubin AST ALT Alkaline Phosphatase Creatine Kinase Troponin T Tzy-S-Hpqwoxbetgq Pept 942 H Total Protein Albumin Globulin Albumin/Globulin Ratio Plasma Lactate 0.6 Urine Source Urine Color Urine Turbidity Urine pH Ur Specific [place] Urine Protein Ur Glucose (Stick) Ur Ketones (Stick) Urine Blood Urine Nitrite Urine Bilirubin Urobilinogen Dipstick Urine Leukocytes Urine WBC (Auto) Urine RBC (Auto) U Epithel Cells (Auto) Urine Bacteria (Auto) 03/30/19 18:19 WBC RBC Hgb Hct MCV MCH MCHC RDW Std Deviation Plt Count MPV Immature Gran % (Auto) Neut % (Auto) Lymph % (Auto) Mclean % (Auto) Eos % (Auto) Baso % (Auto) Immature Gran # (Auto) Neut # (Auto) Lymph # (Auto) Mclean # (Auto) Eos # (Auto) Baso # (Auto) Specimen Type Sample Site pH pCO2 pO2 HCO3 Base Excess Oxyhemoglobin ABG O2 Sat (Calculated) ABG O2 Saturation ABG Carboxyhemoglobin ABG Methemoglobin Russel Test A-a O2 Difference Total Hemoglobin Lactate Blood Gas Modality FiO2 % Sodium Potassium Chloride Carbon Dioxide Anion Gap BUN Creatinine Estimated GFR/1.73 m2 BUN/Creatinine Ratio Glucose Calculated Osmolality Calcium Total Bilirubin AST ALT Alkaline Phosphatase Creatine Kinase Troponin T [id number]-Qhcpduguvcn Pept Total Protein Albumin Globulin Albumin/Globulin Ratio Plasma Lactate Urine Source CLEAN CATCH Urine Color YELLOW Urine Turbidity CLEAR Urine pH 7.0 Ur Specific [place] 1.006 Urine Protein NEGATIVE Ur Glucose (Stick) NEGATIVE Ur Ketones (Stick) NEGATIVE Urine Blood NEGATIVE Urine Nitrite NEGATIVE Urine Bilirubin NEGATIVE Urobilinogen Dipstick NORMAL Urine Leukocytes NEGATIVE Urine WBC (Auto) <10 Urine RBC (Auto) <10 U Epithel Cells (Auto) <10 Urine Bacteria (Auto) NEGATIVE Orders Category Date Time Status Saline Loc NOW Care 03/30/19 15:50 Active CHEST-2 VIEWS [RAD] Stat Exams 03/30/19 15:[address] HEAD W/O CONTRAST [CT] Stat Exams 03/30/19 15:50 Completed ABG [RESP] Routine Lab 03/30/19 17:45 Completed ABG [RESP] Routine Lab 03/31/19 06:00 Ordered BLOOD CULTURE [BLDCUL] Stat Lab 03/30/19 16:40 Ordered BNP [PRO B-NATRIURETIC PEPTIDE] Stat Lab 03/30/19 16:40 Completed CBC WITH ELECTRONIC DIFF [HEME] Stat Lab 03/30/19 16:40 Completed CK PROFILE [SP CHEM] Stat Lab 03/30/19 16:40 Completed COMPREHENSIVE METABOLIC PANEL [CHEM] Stat Lab 03/30/19 16:40 Completed LACTATE, PLASMA [CHEM] Stat Lab 03/30/19 16:40 Completed TROPONIN T Stat Lab 03/30/19 16:40 Completed URINALYSIS W/POSS RFLX CULT [URINALYSIS] Stat Lab 03/30/19 18:19 Completed 0.9% Sodium Chloride Inj [Ns] 1,000 ml Med 03/30/19 15:52 Discontinued IV 999 mls/hr Albuterol 2.5MG/Ipratrop 0.5MG [Duoneb (A & A)] Med 03/30/19 15:57 Discontinued 3 ml INH NOW ONE Azithromycin [Zithromax] Med 03/30/19 15:57 Discontinued 500 mg PO NOW ONE Levofloxacin 500 mg/D5w [Levaquin 500 mg/D5w] Med 03/30/19 15:59 Discontinued 500 mg in 100 ml IV NOW Methylprednisolone Sod Succ [Solu-Medrol] Med 03/30/19 15:57 Discontinued 80 mg IV NOW ONE Ondansetron [Zofran] Med 03/30/19 15:57 Discontinued 4 mg IV NOW ONE Aerosol Treatments Routine Oth 03/30/19 15:58 Completed Aerosol Treatments Stat Oth 03/30/19 15:58 Completed EKG [EKG] Stat Ther 03/30/19 15:50 Ordered A/P: COPD exacerbation / AMS. Head Ct no intracranial bleeding, chest X ray stable. Lung exam wheezing, crackles, rales. Result Diagrams: 03/30/19 16:40 03/30/19 16:40 - CT/MRI 1 CT Study: Head Impression: Abnormal ([facility] [address] , [address], [place] [address] Department of Imaging Patient: QUINTON FINCH EADM Date: 03/30/19#: [id number] : 1940DM Status: [facility]#: [id number] Age/Sex: 78/FRoom/Bed: Loc: ED Ordering Physician: Garcia Gilmore MD Family Physician: Roman Goode MD Reason for Procedure: ams Signed EXAM: CT HEAD W/O CONTRAST INDICATION: ams TECHNIQUE: This exam was performed using automated exposure control, adjustment of mA or kV according to patient size, and/or use of iterative reconstruction technique. COMPARISON: 07/12/2018 FINDINGS: There is patchy lucency in the periventricular and subcortical white matter suggesting moderate microangiopathy, stable. There is no definite acute infarct given the limited sensitivity of CT versus MRI. There is no discrete intracranial mass, mass effect, or intracranial hemorrhage. There is mild to moderate ethmoid and maxillary sinus mucosal disease. Surrounding soft tissues and bony structures are essentially unremarkable, otherwise. IMPRESSION: Stable chronic appearing white matter changes. No evidence of acute intracranial pathology by CT. Electronically signed by Dave Sumner 03/30/2019 4:58 PM 03/30/19 2274 Interpreting Physician: Dave Sumner MD Dictated Date/Time: 03/30/19 2015 cc: Garcia Gilmore MD; Roman Goode MD) MRI Study: Chest Impression: Abnormal ([facility] [address], [address], [place] [address] Department of Imaging Patient: QUINTON FINCH Date: 03/30/19#: [id number] : 1940DM Status: REG ERAcct#: [id number] Age/Sex: 78/FRoom/Bed: Loc: ED Ordering Physician: Garcia Gilmore MD Family Physician: Roman Goode MD Reason for Procedure: ams ___ Signed EXAM: CHEST-2 VIEWS INDICATION: ams TECHNIQUE: 3 views COMPARISON: 03/02/2019 FINDINGS: The left chest port is in stable position. Lungs are somewhat hyperinflated suggesting COPD, stable. The lungs are grossly clear. There is no discrete pleural fluid collection or pneumothorax. There is no cardiomegaly. Central vasculature is unremarkable. IMPRESSION: Stable chest with no definite acute pathology. Electronically signed by Dave Sumner 03/30/2019 5:25 PM 03/30/19 1725 Interpreting Physician: Dave Sumner MD Dictated Date/Time: 03/30/19 1723 cc: Garcia Gilmore MD; Roman Goode MD) - CONSULTS/PCP/HOSPITALIST Notification #1 *Consult/PCP/Hospitalist*: Dr Goode Time Discussed: 18:55 Consult Disposition: Admit Departure - Departure Date of Disposition Decision: 03/30/19 Time of Disposition Decision: 17:53 DIAGNOSIS: COPD exacerbation Disposition: ADMITTED INPATIENT 09 Certified Medical Emergency: Emergent Condition: Stable Additional Freetext Instructions: ED Follow Up Instructions: You have been treated by a care provider in the Emergency Department. These instructions are being provided to you so you can have an understanding of how to care for yourself upon discharge. Upon discharge from the Emergency Department, you are responsible for making arrangements for follow-up care by a physician of your choice. Take all prescribed medications as directed. Return to the Emergency Department immediately for any new or worsening symptoms. You may call the Physician Referral phone number at [phone] to obtain a list of Physicians who are taking new patients. Referrals and Follow-Ups: Roman Goode MD [Primary Care Provider] - Discharge Education: Steps to Quit Smoking, [id number] - Critical Care Note This patient required my direct & personal management of CC.: No Attestation - Physician/ SCOTT Attestation Patient care was provided by Advanced Practice Provider:: No The physician spent face to face time with patient:: Yes Advanced Practice Provider documentation review:: Supervising physician onsite and consulted in the evaluation and care of this patient. The physician did have a face to face encounter with the patient.
[2019-03-30 16:55] LABS: BASO# 0.01 X1000 (0.0-0.2); BASO% 0.1 % (0.0-0.8); EOS# 0.06 X1000 (0.0-0.7); EOS% 0.6 % (0.0-10.0); HEMATOCRIT 38.3 % (37.0-47.0); HEMOGLOBIN 13.1 g/dL (12.0-16.0); IMM GRAN# 0.02 X1000 (0.0-0.04); IMM GRAN% 0.2 % (0.0-0.5); LYMPH# 1.15 X1000 (1.2-3.4); LYMPH% 11.8 % (20.5-51.1); MCHC 34.2 g/dL (33-37); MCV 84.9 FL (81-99); MONO% 9.2 % (1.7-9.3); NEUT# 7.64 X1000 (1.4-6.5); NEUT% 78.1 % (42.2-75.2); PLT 170 X1000 (130-400); RBC 4.51 XMIL (4.2-5.4); RDW 13.9 % (11.5-14.5); WBC 9.78 X1000 (4.8-10.8)
--- NOTE | 2019-03-30 17:00 | Diag Imaging Result Doc PS360 ---
EXAM: CT HEAD W/O CONTRAST INDICATION: ams TECHNIQUE: This exam was performed using automated exposure control, adjustment of mA or kV according to patient size, and/or use of iterative reconstruction technique. COMPARISON: 07/12/2018 FINDINGS: There is patchy lucency in the periventricular and subcortical white matter suggesting moderate microangiopathy, stable. There is no definite acute infarct given the limited sensitivity of CT versus MRI. There is no discrete intracranial mass, mass effect, or intracranial hemorrhage. There is mild to moderate ethmoid and maxillary sinus mucosal disease. Surrounding soft tissues and bony structures are essentially unremarkable, otherwise. IMPRESSION: Stable chronic appearing white matter changes. No evidence of acute intracranial pathology by CT. Electronically signed by Dave Sumner 03/30/2019 4:58 PM
[2019-03-30 17:16] LABS: AGAP 13; ALB/GLOB RATIO 2.9; ALKALINE PHOSPHATASE 56 U/L (32-104); BUN 6 mg/dL (8-22); CALCIUM 7.7 mg/dL (8.8-10.2); CHLORIDE 90 mmol/L (98-107); CK PROFILE 64 U/L (24-173); COSMO 260; CREATININE 0.7 mg/dL (0.5-0.9); ESTIMATED GFR > 60; GLUCOSE 121 mg/dL (70-104); GOT 17 U/L (10-30); GPT 18 U/L (10-36); SODIUM 130 mmol/L (136-145); TCO2 27 mmol/L (25-35); TOTAL BILIRUBIN 0.58 mg/dL (0.20-1.00); TOTAL PROTEIN 5.4 g/dL (6.3-8.3)
--- NOTE | 2019-03-30 17:27 | Diag Imaging Result Doc PS360 ---
EXAM: CHEST-2 VIEWS INDICATION: ams TECHNIQUE: 3 views COMPARISON: 03/02/2019 FINDINGS: The left chest port is in stable position. Lungs are somewhat hyperinflated suggesting COPD, stable. The lungs are grossly clear. There is no discrete pleural fluid collection or pneumothorax. There is no cardiomegaly. Central vasculature is unremarkable. IMPRESSION: Stable chest with no definite acute pathology. Electronically signed by Dave Sumner 03/30/2019 5:25 PM
[2019-03-30 17:55] LABS: ALLEN TEST YES; BE 4.4 mmoll (-3.0-3.0); BLOOD TYPE ARTERIAL; HCO3-(ACT) 28.3 mmoll (20.0-26.0); O2(CT) 17.8 mL/dL (15.0-23.0); O2HB 94.4 % (95.0-99.0); PCO2(98.6) 43 mmHg (35-45); PO2(98.6) 74 mmHg (60-100); SAMPLE BLOOD; SAO2 97.6 % (95.0-100.0); THB 13.4 g/dL (11.5-17.4); pH(98.6) 7.44 (7.35-7.45)
[2019-03-30 17:57] LABS: MODALITY ROOM AIR
[2019-03-30 18:46] LABS: URINE SOURCE CLEAN CATCH
[2019-03-30 18:51] LABS: BILIRUBIN URINE NEGATIVE (NEGATIVE); BLOOD URINE NEGATIVE (NEGATIVE); COLOR YELLOW; GLUCOSE URINE NEGATIVE (NEGATIVE); KETONE URINE NEGATIVE (NEGATIVE); LEUKOCYTES URINE NEGATIVE (NEGATIVE); NITRITE URINE NEGATIVE (NEGATIVE); PROTEIN URINE NEGATIVE (NEGATIVE); SP GRAVITY URINE 1.006; TURBIDITY URINE CLEAR (CLEAR); UROBILINOGEN URINE NORMAL (NORMAL)
[2019-03-30 18:53] LABS: UR EPITHELIAL CELLS <10 /HPF (<10); URINE BACTERIA NEGATIVE /HPF; URINE RBC <10 /HPF (<10); URINE WBC <10 /HPF (<10)
[2019-03-30] MEDS: DUONEB (A & A) INH SCH (21:14)
[2019-03-30] MEDS ORDERED: TYLENOL PO PRN (21:14)
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
[2019-03-30] MEDS ORDERED: POTASSIUM CHLORIDE 20 MEQ/SWI 20 MEQ/100 ML IVPB IV SCH (23:30)
[2019-03-31] MEDS: POTASSIUM CHLORIDE 20 MEQ in NS 100 ML IV SCH ×2 (00:06→02:12)
[2019-03-31] MEDS: BACTROBAN OINTMENT TOP SCH ×3 (00:30→21:00)
[2019-03-31] MEDS: DUONEB (A & A) INH SCH ×4 (03:10→20:02)
[2019-03-31] MEDS: PROTONIX PO SCH (06:36)
[2019-03-31 07:25] LABS: HEMATOCRIT 35.9 % (37.0-47.0); HEMOGLOBIN 12.1 g/dL (12.0-16.0); IMM GRAN# 0.02 X1000 (0.0-0.04); IMM GRAN% 0.4 % (0.0-0.5); LYMPH# 0.48 X1000 (1.2-3.4); LYMPH% 9.8 % (20.5-51.1); MCH 29.4 PG (27-31); MCHC 33.7 g/dL (33-37); MCV 87.3 FL (81-99); MPV 10.3 FL (7.4-10.4); NEUT% 87.8 % (42.2-75.2); PLT 171 X1000 (130-400); RBC 4.11 XMIL (4.2-5.4); RDW 14.2 % (11.5-14.5)
[2019-03-31 07:43] LABS: AGAP 11; BUN 9 mg/dL (8-22); CHLORIDE 101 mmol/L (98-107); COSMO 277; CREATININE 0.6 mg/dL (0.5-0.9); ESTIMATED GFR > 60; GLUCOSE 148 mg/dL (70-104); MAGNESIUM 1.6 mg/dL (1.5-2.7); POTASSIUM 4.7 mmol/L (3.5-5.1); SODIUM 138 mmol/L (136-145); TCO2 26 mmol/L (25-35)
[2019-03-31 08:02] LABS: CALCIUM 6.9 mg/dL (8.8-10.2)
[2019-03-31 08:55] LABS: LYMPHS 8 % (21-51); MONO 4 % (1-9); SEGS 88 % (42-75)
[2019-03-31] MEDS ORDERED: CALCIUM GLUCONATE IV PUSH ONE (09:03)
[2019-03-31] MEDS: SOLU-MEDROL IV SCH ×2 (10:08→22:31)
[2019-03-31] MEDS: WELLBUTRIN XL PO SCH (10:10)
[2019-03-31] MEDS: SINGULAIR PO SCH (10:10)
[2019-03-31] MEDS: KLOR-CON PO SCH (10:11)
[2019-03-31] MEDS: LASIX PO SCH (10:11)
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
[2019-03-31] MEDS: ZITHROMAX 500 MG/NS 500 MG/250 ML IVPB IV SCH (22:31)
[2019-03-31] MEDS: LEVAQUIN 500 MG/D5W 500 MG/100 ML IVPB IV SCH (22:50)
[2019-04-01] MEDS: ATIVAN IV PRN ×2 (01:00→22:49)
[2019-04-01] MEDS: DUONEB (A & A) INH SCH ×4 (02:40→21:50)
[2019-04-01] MEDS: PROTONIX PO SCH (06:28)
[2019-04-01] MEDS: SOLU-MEDROL IV SCH ×2 (09:25→21:59)
[2019-04-01] MEDS: WELLBUTRIN XL PO SCH (09:25)
[2019-04-01] MEDS: LASIX PO SCH (09:26)
[2019-04-01] MEDS: SINGULAIR PO SCH (09:26)
[2019-04-01] MEDS: BACTROBAN OINTMENT TOP SCH ×2 (09:26→21:57)
[2019-04-01] MEDS: KLOR-CON PO SCH (09:26)
--- NOTE | 2019-04-01 10:54 | PROGRESS NOTE ---
DATE: 04/01/2019 Vital signs stable with temperature 98.3 degrees, heart rate 98, respirations 22, blood pressure 130/90, O2 saturation on 3 L nasal oxygen 99%. The patient is a little more confused this morning. Her oxygen is off and she is eating breakfast. She has been eating fairly well. There is crusty scabbing of her cheeks and upper lip, also external nares. PLAN: Increase activity with ambulation and having her get up in a chair. Continue intravenous antibiotics and steroids, also nebulizer treatments. cc: Roman Goode MD
[2019-04-01] MEDS: ZITHROMAX 500 MG/NS 500 MG/250 ML IVPB IV SCH (21:59)
[2019-04-01] MEDS: LEVAQUIN 500 MG/D5W 500 MG/100 ML IVPB IV SCH (22:57)
[2019-04-02] MEDS: DUONEB (A & A) INH SCH ×4 (03:15→20:35)
[2019-04-02] MEDS: PROTONIX PO SCH (06:12)
[2019-04-02] MEDS: KLOR-CON PO SCH (08:32)
[2019-04-02] MEDS: WELLBUTRIN XL PO SCH (08:33)
[2019-04-02] MEDS: SOLU-MEDROL IV SCH (08:33)
[2019-04-02] MEDS: SINGULAIR PO SCH (08:33)
[2019-04-02] MEDS: LASIX PO SCH (08:33)
[2019-04-02] MEDS: BACTROBAN OINTMENT TOP SCH ×2 (08:33→21:10)
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
[2019-04-02] MEDS: LEVAQUIN PO SCH (10:38)
[2019-04-02] MEDS ORDERED: CARDIZEM CD PO ONE (15:37)
[2019-04-02] MEDS ORDERED: SOLU-MEDROL IV ONE (19:31)
[2019-04-02] MEDS ORDERED: DUONEB (A & A) INH ONE (19:32)
[2019-04-02] MEDS: PREDNISONE PO SCH (21:10)
[2019-04-03] MEDS: DUONEB (A & A) INH SCH ×3 (03:50→16:10)
[2019-04-03] MEDS: PROTONIX PO SCH (06:29)
[2019-04-03] MEDS: BACTROBAN OINTMENT TOP SCH (08:47)
[2019-04-03] MEDS: LEVAQUIN PO SCH (08:48)
[2019-04-03] MEDS: TESSALON PO SCH ×3 (08:48→16:03)
[2019-04-03] MEDS: PREDNISONE PO SCH (08:48)
[2019-04-03] MEDS: LASIX PO SCH (08:48)
[2019-04-03] MEDS: KLOR-CON PO SCH (08:48)
[2019-04-03] MEDS: WELLBUTRIN XL PO SCH (08:49)
[2019-04-03] MEDS: SINGULAIR PO SCH (08:49)
[2019-04-03] MEDS ORDERED: CARDIZEM CD PO SCH (09:00)
[2019-04-03 15:26] VITALS: BP 131/103
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
--- NOTE | 2019-04-07 16:42 | ED EKG INTERP ---
This chart was entered by Oswald Patton Scribe, acting as scribe for Henri Miller MD. EKG Interpretation - EKG Time of EKG reading by physician:: 16:27 EKG Read and Signed by:: Henri Miller EKG Interpretation (*Must complete 3 of following elements*): Abnormal Rate: 93 Rhythm: NSR [place]: normal QRS: normal [place] Interval: normal ST Wave: normal Attestation - Physician/ SCOTT Attestation Patient care was provided by Advanced Practice Provider:: No The physician spent face to face time with patient:: Yes Advanced Practice Provider documentation review:: Supervising physician onsite and consulted in the evaluation and care of this patient. The physician did have a face to face encounter with the patient. This chart was documented by the indicated scribe, (Oswald Patton Scribe) and accurately reflects the services I performed and decisions made by me, Henri Miller MD, as attested by the provider's signature.
== END 2019-04-03 17:42 | disposition home health service (06) | DRG 191 ==
LOC: ED 15:32 → EDIPHOLD 21:36 → 3N 22:24
PROVIDERS: ADMIT Family Medicine; ATTEND Family Medicine
CPT/HCPCS: 70450; 71020; 71046; 80048; 80053; 81001; 82550; 82805; 82948; 83605; 83735; 83880; 84484; 85025; 87040; 93005; 94640; 94761; 96365; 96366; 96375; 99285; A9270; J0456; J0610; J1956; J2060; J2405; J2930; J3480; J7030; J7506; J7512; XXXXX

== ENCOUNTER 2019-08-10 10:13 | Inpatient (IN) ==
[2019-08-10] MEDS ORDERED: DUONEB (A & A) INH ONE (10:32)
[2019-08-10] MEDS ORDERED: NS 1,000 ML IV ONE ×4 (10:34→16:18)
--- NOTE | 2019-08-10 10:51 | Diag Imaging Result Doc PS360 ---
EXAM: CHEST-1 VIEW - 08/10/2019 HISTORY: sepsis protocol TECHNIQUE: Portable chest one view COMPARISON: 03/30/2019 FINDINGS: Heart size is normal. There is mild prominence of central markings similar to prior. There is no acute consolidation, pleural effusion, or pneumothorax identified. Central venous catheter remains in place. IMPRESSION: Mild prominence of central markings similar to prior. No acute changes. Electronically signed by Eugene Duenas 08/10/2019 10:49 AM
[2019-08-10 10:55] LABS: ALLEN TEST YES; BE 6.2 mmoll (-3.0-3.0); BLOOD TYPE ARTERIAL; HCO3-(ACT) 29.7 mmoll (20.0-26.0); METHB 1.1 % (0.0-1.5); O2(CT) 20.6 mL/dL (15.0-23.0); O2HB 96.2 % (95.0-99.0); PCO2(98.6) 42 mmHg (35-45); PO2(98.6) 122 mmHg (60-100); SAMPLE BLOOD; SAO2 99.4 % (95.0-100.0); THB 15.1 g/dL (11.5-17.4); pH(98.6) 7.47 (7.35-7.45)
[2019-08-10 10:56] LABS: MODALITY CANNULA
[2019-08-10] MEDS ORDERED: DECADRON IV ONE (10:59)
[2019-08-10 11:12] LABS: BASO# 0.02 X1000 (0.0-0.2); BASO% 0.2 % (0.0-0.8); EOS# 0.07 X1000 (0.0-0.7); EOS% 0.6 % (0.0-10.0); HEMOGLOBIN 14.7 g/dL (12.0-16.0); IMM GRAN# 0.04 X1000 (0.0-0.04); IMM GRAN% 0.3 % (0.0-0.5); LYMPH% 13.8 % (20.5-51.1); MCH 29.9 PG (27-31); MCV 85.5 FL (81-99); MONO% 7.3 % (1.7-9.3); MPV 9.6 FL (7.4-10.4); NEUT# 9.63 X1000 (1.4-6.5); NEUT% 77.8 % (42.2-75.2); PLT 257 X1000 (130-400); RBC 4.91 XMIL (4.2-5.4); RDW 14.4 % (11.5-14.5); WBC 12.36 X1000 (4.8-10.8)
[2019-08-10 11:24] LABS: INR 0.9; PROTIME 12.2 Seconds (11.0-16.0); PTT 21.3 Seconds (22.3-41.8)
[2019-08-10 11:36] LABS: URINE SOURCE CLEAN CATCH
[2019-08-10 11:37] LABS: ALB/GLOB RATIO 2.7; ALBUMIN 4.6 g/dL (3.5-5.0); CALCIUM 9.6 mg/dL (8.8-10.2); POTASSIUM 3.7 mmol/L (3.5-5.1); TOTAL BILIRUBIN 0.53 mg/dL (0.20-1.00); TOTAL PROTEIN 6.3 g/dL (6.3-8.3)
[2019-08-10 11:47] LABS: BILIRUBIN URINE NEGATIVE (NEGATIVE); BLOOD URINE NEGATIVE (NEGATIVE); COLOR YELLOW; GLUCOSE URINE NEGATIVE (NEGATIVE); KETONE URINE NEGATIVE (NEGATIVE); LEUKOCYTES URINE NEGATIVE (NEGATIVE); NITRITE URINE NEGATIVE (NEGATIVE); PROTEIN URINE NEGATIVE (NEGATIVE); SP GRAVITY URINE 1.006; TURBIDITY URINE CLEAR (CLEAR); UROBILINOGEN URINE NORMAL (NORMAL)
[2019-08-10 11:48] LABS: UR EPITHELIAL CELLS <10 /HPF (<10); URINE BACTERIA NEGATIVE /HPF; URINE RBC <10 /HPF (<10); URINE WBC <10 /HPF (<10)
[2019-08-10] MEDS ORDERED: XANAX PO ONE (14:01)
[2019-08-10] MEDS ORDERED: LEVAQUIN PO SCH (14:15)
[2019-08-10] MEDS: DUONEB (A & A) INH SCH ×3 (15:25→23:21)
[2019-08-10] MEDS ORDERED: XANAX PO PRN (16:16)
[2019-08-10] MEDS ORDERED: SODIUM CHLORIDE 0.9% INJ SCH (16:30)
[2019-08-10] MEDS: SOLU-MEDROL IV SCH (17:07)
[2019-08-10] MEDS: LOVENOX SUBQ SCH (17:07)
[2019-08-10] MEDS: NEXIUM IV SCH (17:18)
--- NOTE | 2019-08-10 17:24 | HISTORY AND PHYSICAL ---
CHIEF COMPLAINT: Shortness of breath, cough, wheezing since Sunday. HISTORY OF PRESENT ILLNESS: She is a 78-year-old white female patient of Dr. Gabriel Story called me this morning that she is not breathing well since a week ago, worsening. The patient was advised to go to the ER. Patient was seen in the emergency room, markedly bronchospastic, admitted to the hospital for acute COPD exacerbation. The patient has known history of non-Hodgkin lymphoma in remission, continues to smoke. She is using home oxygen and prednisone also dependent. The patient was seen before by Dr. Galaviz. Denies of any chest pain. Swelling of feet present, which is improving with Lasix and oxygenation. PAST MEDICAL HISTORY: 1. Chronic obstructive pulmonary disease. 2. Chronic anxiety. 3. IgG deficiency with underlying non-Hodgkin's lymphoma under the treatment by Dr. Villegas. 4. Chronic tobacco abuse. 5. Chronic respiratory failure. 6. Remote history of deep venous thrombosis. 7. Osteopenia/osteoporosis. 8. Hyperlipidemia. 9. History of AAA. PAST SURGICAL HISTORY: Cholecystectomy, hysterectomy, bilateral cataract surgery, Port-A-Cath on the left side of the chest. ALLERGIES: Reported to codeine, hydrocodone, penicillin, sulfa. MEDICATIONS: Potassium 10 mEq p.o. b.i.d., albuterol Atrovent nebulizers q.6, Xanax 0.5 q.8, Hyzaar 100/12.5 daily, metolazone 2.5 daily, Lasix 40 daily, prednisone 10 p.o. b.i.d. SOCIAL HISTORY: Lives in local area and 2 sons. Smokes since age 17. No drug abuse. FAMILY HISTORY: Mom had breast cancer. Father has alcohol problems. REVIEW OF SYSTEMS: HEENT: No headache no vision problem. No earache. No sore throat. Neck: No goiter. No lymphadenopathy. No carotid bruits. Cardiopulmonary: Basically shortness of breath, cough, wheezing. No chest pain, nonproductive cough, swelling of feet. GI: No nausea, vomiting, abdominal pain. : No history of hesitancy, frequency, dysuria. No back pain. Neurologic: No focal symptoms, dizziness, vertigo. PHYSICAL EXAMINATION: Temperature is afebrile. Pulse is 85, blood pressure is stable. HEENT: Atraumatic, normocephalic. Pupils equal, reactive to light. TMs are normal. Nose and throat within normal limits. NECK: Supple, no lymphadenopathy. CHEST: Poor air entry. Distant heart sounds. ABDOMEN: Belly is soft, nontender. Good bowel sounds. EXTREMITIES: No peripheral edema, cyanosis. NEUROLOGICAL: No obvious neurological deficits. INVESTIGATIONS: CBC: White cell count 12.3, hematocrit 42, platelets 257,000. PT 12. INR 0.9 ABG pH is 7.47, pCO2 42, PO2 132 on 28%. Sodium 134, potassium 3.7, chloride 87, BUN 12, creatinine 1.0. Glucose 131. Cardiac enzymes are negative. Liver function tests were normal. Urinalysis is clear. Chest x-ray, COPD changes. Port on the left side. ASSESSMENT AND PLAN: 1. A 78-year-old white female admitted to the hospital for acute chronic obstructive pulmonary disease exacerbation oxygen dependent, steroid dependent. Plan is as follows: Oxygen bronchodilators started on Breo and IV Levaquin, IV steroids. 2. Nicotine abuse. Nicotrol patch. 3. Influenza vaccine was given. We will initiate Prevnar 13 prior to the discharge. 4. Non-Hodgkin's lymphoma in remission since 2011. Check the IgG levels. 5. Reconcile home medicines. 6. Deep venous thrombosis and gastrointestinal prophylaxis with Lovenox and proton pump inhibitor. 7. Dr. Goode is going to follow up. cc: Christopher Garcia MD
[2019-08-10] MEDS: KLOR-CON PO SCH (21:49)
[2019-08-11] MEDS: SOLU-MEDROL IV SCH ×3 (00:25→17:40)
[2019-08-11] MEDS: DUONEB (A & A) INH SCH ×6 (02:59→23:35)
[2019-08-11 06:10] LABS: CALCIUM 8.4 mg/dL (8.8-10.2); CREATININE 1.1 mg/dL (0.5-0.9); POTASSIUM 3.5 mmol/L (3.5-5.1)
--- NOTE | 2019-08-11 07:37 | EKG Report ---
Test Performed on : 08/11/2019 06:35:50 AM Test Reason : cp Blood Pressure : / mmHG Vent. Rate : 103 BPM Atrial Rate : 103 BPM P-R Int : 132 ms QRS Dur : 078 ms QT Int : 348 ms P-R-T Axes : 067 058 042 degrees QTc Int : 455 ms Sinus tachycardia. with premature supraventricular complexes. Possible Left atrial enlargement ST & T wave abnormality, consider inferior ischemia Abnormal ECG Confirmed by Juancarlos GARIBAY, [place] ([id number]) on 08/11/2019 9:00:10 AM
--- NOTE | 2019-08-11 08:09 | PROGRESS NOTE ---
DATE: 08/11/2019 Vital signs stable with temperature 98.1 degrees, heart rate 81, respirations 22, blood pressure 94/71, O2 saturation on nasal oxygen 96%. The patient continues to have scattered rhonchi and wheezing. She states that she is improved, however. Appetite is fairly good. PLAN: Continue intravenous Levaquin, Solu-Medrol, and nebulizer treatments. Blood culture results are pending. cc: MD Christopher Flynn MD
[2019-08-11] MEDS ORDERED: LASIX PO SCH (09:00)
[2019-08-11] MEDS ORDERED: COZAAR PO SCH (09:00)
[2019-08-11] MEDS ORDERED: HYZAAR 100/12.5 MG TAB PO SCH (09:00)
[2019-08-11] MEDS: KLOR-CON PO SCH (09:24)
--- NOTE | 2019-08-11 10:05 | EKG Report ---
Test Performed on : 08/10/2019 10:38:16 AM Test Reason : ED. NO EKG ORDER FOR MUSE Blood Pressure : / mmHG Vent. Rate : 108 BPM Atrial Rate : 108 BPM P-R Int : 150 ms QRS Dur : 064 ms QT Int : 380 ms P-R-T Axes : 074 070 082 degrees QTc Int : 509 ms Poor data quality, interpretation may be adversely affected Sinus tachycardia. Biatrial enlargement Septal infarct , age undetermined Abnormal ECG When compared with ECG of 30-MAR-2019 16:27, Septal infarct is now present ST now depressed in Lateral leads T wave inversion now evident in Lateral leads Unconfirmed Result
[2019-08-11] MEDS ORDERED: LEVAQUIN 500 MG/D5W 500 MG/100 ML IVPB IV SCH (14:30)
[2019-08-11] MEDS: LOVENOX SUBQ SCH (17:43)
[2019-08-11] MEDS: NEXIUM IV SCH (17:51)
[2019-08-12] MEDS: SOLU-MEDROL IV SCH (00:02)
[2019-08-12] MEDS: DUONEB (A & A) INH SCH ×6 (03:34→23:47)
[2019-08-12] MEDS: BREO ELLIPTA 100/25 MCG INH INH SCH ×2 (06:22→08:08)
--- NOTE | 2019-08-12 08:35 | PROGRESS NOTE ---
DATE: 08/12/2019 VITAL SIGNS: Temperature 98 degrees, heart rate 94, respirations 22, blood pressure 99/68, O2 saturation on 2 liters nasal oxygen 96%. LABORATORY: Blood cultures revealed no growth after 48 hours. She is feeling better. Lungs are clear to auscultation. Abdomen is soft. She is eating well. PLAN: Continue to increase activity. Levaquin, steroids are changed to p.o. The nurse indicated that she became more confused after being given a 0.5 mg Xanax. This is discontinued. Instead, Vistaril is ordered as needed 25 mg q.8 hours p.r.n. cc: MD Christopher Flynn MD
[2019-08-12] MEDS: LEVAQUIN PO SCH (09:07)
[2019-08-12] MEDS: ATARAX PO PRN ×2 (09:07→17:04)
[2019-08-12] MEDS: PREDNISONE PO SCH (09:08)
[2019-08-12] MEDS: LOVENOX SUBQ SCH (16:56)
[2019-08-12] MEDS: NEXIUM PO SCH (16:58)
[2019-08-12] MEDS ORDERED: ZOFRAN IV PRN (17:17)
[2019-08-12] MEDS ORDERED: GEODON IM ONE (18:59)
[2019-08-12] MEDS ORDERED: STERILE WATER INJ. INJ ONE (18:59)
[2019-08-13] MEDS: PREDNISONE PO SCH ×4 (01:19→20:43)
[2019-08-13] MEDS: TYLENOL PO PRN ×2 (01:59→16:34)
[2019-08-13] MEDS: ATARAX PO PRN (01:59)
[2019-08-13] MEDS: DUONEB (A & A) INH SCH ×6 (03:50→23:47)
[2019-08-13] MEDS: BREO ELLIPTA 100/25 MCG INH INH SCH (07:42)
--- NOTE | 2019-08-13 09:32 | PROGRESS NOTE ---
DATE: 08/13/2019 OBJECTIVE: Vital signs are stable with temperature 98.4 degrees, heart rate 98, respirations 15, blood pressure 130/68, O2 saturation on 2 L nasal oxygen 97%. SUBJECTIVE: The patient was nauseated last evening and also did not eat any breakfast. She is more confused. She was given Geodon overnight. PLAN: Vistaril will be discontinued. Nurses will ambulate today. Hopefully, she will be feeling better late this afternoon. If so, she may be discharged. cc: MD Christopher Flynn MD
[2019-08-13] MEDS ORDERED: LASIX IV ONE (10:07)
[2019-08-13] MEDS ORDERED: ZYPREXA IM ONE (10:10)
[2019-08-13] MEDS ORDERED: DUONEB (A & A) INH PRN (10:14)
[2019-08-13] MEDS: LEVAQUIN PO SCH (10:24)
--- NOTE | 2019-08-13 14:16 | Diag Imaging Result Doc PS360 ---
CT HEAD W/O CONTRAST - 08/13/2019 INDICATION: confusion COMPARISON: 03/30/2019 FINDINGS: The ventricles and sulci are normal in size and contour. No intracranial mass or hemorrhage. Stable mild patchy periventricular cerebral white matter chronic microvascular ischemia. The skull is intact. Stable chronic sinusitis of the right maxillary sinus. IMPRESSION: No acute disease or change from prior. This exam was performed using automated exposure control, adjustment of mA or kV according to patient size, and/or use of iterative reconstruction technique Electronically signed by Danilo Camacho 08/13/2019 2:14 PM
[2019-08-13] MEDS: LOVENOX SUBQ SCH (16:35)
[2019-08-13] MEDS: NEXIUM PO SCH (16:35)
[2019-08-13] MEDS ORDERED: STERILE WATER INJ. INJ PRN (21:33)
[2019-08-13] MEDS ORDERED: ZYPREXA IM PRN (21:33)
[2019-08-14] MEDS: DUONEB (A & A) INH SCH ×3 (05:27→11:57)
[2019-08-14] MEDS: BREO ELLIPTA 100/25 MCG INH INH SCH (08:43)
[2019-08-14] MEDS: PREDNISONE PO SCH (09:50)
[2019-08-14] MEDS: LEVAQUIN PO SCH (09:50)
[2019-08-14 11:59] VITALS: BP 116/87
--- NOTE | 2019-08-15 05:59 | DISCHARGE SUMMARY ---
ADMISSION DATE: 08/10/2019 DISCHARGE DATE: 08/14/2019 FINAL DIAGNOSES: 1. Chronic obstructive pulmonary disease exacerbation. 2. Hypertension. 3. History of pulmonary edema. 4. Tobacco abuse, smoker. DISCHARGE MEDICATIONS: 1. Levaquin 500 mg (#7) 1 daily. 2. Prednisone 20 mg (14) 1 b.i.d. 3. Nebulizer treatments with albuterol. 4. Atrovent. 5. Lasix 40 mg every morning. 6. Potassium chloride 10 mEq b.i.d. 7. Losartan HCT is discontinued as well as metolazone. HISTORY: This is one of several [facility] admissions for this 78-year-old white female who was admitted by Dr. Garcia over the weekend. She complained with shortness of breath. Chest x-ray showed no infiltrates. INITIAL LABORATORY: Hemoglobin 14.7, hematocrit 42, white blood count 54760 with 78% neutrophils. Sodium 134, potassium 3.7, BUN 12, creatinine 1.0 and glucose 131. CPK 54, troponin 0.01, plasma lactate 1.3, and ProBNP 564. HOSPITAL COURSE: She responded to intravenous Lasix, IV steroids and IV Levaquin. She had some episodes of confusion. Xanax was listed as a home medicine, but she seemed to do worse with increasing confusion after taking this. This was changed to Vistaril, then Geodon, then Zyprexa. Zyprexa seemed to work best. She had some confusion last night, but responded to 5 mg of Zyprexa IM. She is better this morning. She is discharged home on the above medications to be seen back in the office in 1 week for followup. cc: MD Christopher Flynn MD
--- NOTE | 2019-08-16 06:28 | PROVIDER DOCUMENTATION ---
This chart was entered by Jamaica Sumner Scribe, acting as scribe for Ori King DO. HPI-Respiratory General - General Chief Complaint: SEPSIS ALERT - D Stated Complaint: COPD Time Seen by Provider: 08/10/19 10:32 Source: patient Allergies/Adverse Reactions: Patient Allergies Allergy/AdvReac Type Severity Reaction Status Date / Time codeine [Codeine] Allergy RASH Verified 03/30/19 17:49 hydrocodone bitartrate * Allergy VOMITING Verified 03/30/19 17:49 [From Lortab] Penicillins Allergy SWELLING Verified 03/30/19 17:49 Sulfa (Sulfonamide Allergy ITCHING Verified 03/30/19 17:49 Antibiotics) [Sulfa(Sulfonamide Antibiotics)] Home Medications: Home Medication List Medication Instructions Recorded Confirmed Last Taken Type Potassium Chloride E.r. [Micro-K] 10 meq PO BID 02/19/19 08/10/19 Unknown Histo ry Albuterol 2.5MG/Ipratrop 0.5MG 3 ml INH [id number] neb 04/03/19 08/10/19 Unknown Rx [Duoneb (A & A)] Furosemide [Lasix] 40 mg PO DAILY 08/10/19 08/10/19 08/10/19 History Albuterol 2.5MG/Ipratrop 0.5MG 3 ml INH Q4H PRN PRN neb 08/14/19 Unknown Rx [Duoneb (A & A)] Esomeprazole [Nexium] 40 mg PO DAILY@1700 cap 08/14/19 Unknown Rx Fluticasone/Vilant 100/25 INH 1 puff INH RTDAILY inhaler 08/14/19 Unknown Rx [Breo Ellipta 100/25 Mcg INH] Levofloxacin [Levaquin] 500 mg PO DAILY #7 tab 08/14/19 Unknown Rx Prednisone 20 mg PO BID #14 tab 08/14/19 Unknown Rx - History of Present Illness-Resp Nature of Presenting Problem: 78 yowf c/o respiratory distress, sob, productive cough w/white sputum, and wheezing x last week. pt sts she saw her dr last sunday and was not able to get her albuterol tx from pharmacy b/cit interacts w/another one of her meds. pt has hx of copd. pt is on continuous o2 at home 2L. has allergy to penicillin and codeine. pt is tachypnic and tachycardic at bedside. Quality of Pain: reports: none Severity in ED: reports: mild Onset/Duration: reports: last week Timing: reports: still present Exposure: reports: unknown cause Cough Quality/Degree: reports: productive cough, sputum (white) Current Respiratory Medication Therapy: Initiated prednisone, Initiated albuterol Modifying Factors: improves with: nothing Associated Symptoms: reports: cough, shortness of breath, wheezing Recently seen or treated by another doctor?: Yes (pcp last ) Review of Systems - Adult - REVIEW OF SYSTEMS - ADULT Constitutional: reports: no symptoms reported. denies: chills, fever, fatique Eyes: reports: no symptoms reported Ears, Nose, Mouth & Throat: reports: no symptoms reported Cardiovascular: reports: no symptoms reported Respiratory: reports: no symptoms reported, cough, excessive sputum production, shortness of breath, wheezing. denies: hemoptysis, pleurisy Gastrointestinal: reports: no symptoms reported Genitourinary: reports: no symptoms reported Musculoskeletal: reports: no symptoms reported Integumentary: reports: no symptoms reported Neurological: reports: no symptoms reported Psychiatric: reports: no symptoms reported Endocrine: reports: no symptoms reported Hematologic/Lymphatic: reports: no symptoms reported Allergic/Immunologic: reports: no symptoms reported All Other Systems: Reviewed and Negative Past History - Adult - PAST MEDICAL HISTORY-ADULT Review of Records: reports: Old Records Reviewed, Nursing Assessment Review, Medications Reviewed, Social history reviewed & non-contributory. Major Childhood Illnesses: reports: denies history Cardiovascular: reports: CHF, HTN Respiratory: reports: asthma, COPD Gastrointestinal: reports: denies history Obstetrical/Gynecological: reports: denies history Genitourinary: reports: denies history Musculoskeletal: reports: denies history Neurological: reports: denies history Psychiatric: reports: denies history Endocrine/Immune: reports: Lymphoma Other Conditions: reports: denies history - PRIOR SURGERIES/PROCEDURES Surgical/Procedure History: reports: hysterectomy, other - PRIOR HOSPITALIZATIONS Prior Hospitalizations: reports: for other non-related - IMMUNIZATION STATUS Childhood Immunizations: See Nurse Assessment Flu Vaccine: See Nurse Assessment - FAMILY HISTORY Family History: reviewed, not pertinent - SOCIAL HISTORY Smoking: cigarettes, less than 1 pack/day Provider spent 3-5 mins advising pt. on dangers of tobacco.: Discussed manners to quit use, and f/u contacts for add'l counseling. Substance Use: none/never Physical Exam-General - PHYSICAL EXAM-ADULT Initial Vital Signs Reviewed: Yes - CONSTITUTIONAL General Appearance: alert, mild distress. negative: anxious, lethargic, combative - EYES Eyes: PERRL/EOMI, pink conjunctivae - HEAD, EARS, NOSE, MOUTH & THROAT HENMT: normocephalic/atraumatic, moist mucous membranes, normal ENT inspection - NECK Neck: non-tender, full range of motion, supple, normal inspection - RESPIRATORY Respiratory: chest non-tender, normal breath sounds, no pleuratic chest pain, respiratory distress, accessory muscle use, wheezing (bilat bases), other (tachypnic). negative: lungs clear, no respiratory distress, no accessory muscle use, dull on percussion, prolonged expiration, crepitus - CARDIOVASCULAR Cardiovascular: normal peripheral pulses, no edema, no gallop, no JVD, no murmur , tachycardia. negative: regular rate, rhythm, bradycardia, extra beats, friction rub - GASTROINTESTINAL (ABDOMEN) Abdominal Exam: normal bowel sounds, non tender, soft - LYMPHATIC Lymphatic: no adenopathy - MUSCULOSKELETAL Back Exam: normal inspection, no CVA tenderness, no vertebral tenderness Extremity: normal range of motion, non-tender, normal inspection Peripheral Pulses: radial (R): 2+, radial (L): 2+ - SKIN Integumentary: normal color, normal turgor, warm/dry - NEUROLOGIC Neurologic: high tension tester II-XII nml as tested, grossly normal, no motor/sensory deficits - PSYCHIATRIC Psych/Mental Status: normal mood/affect, normal thought content, normal thought process, oriented x 3 Progress - PLAN OF CARE/RESULTS Progress/Plan/Lab Results: 08/10/19 10:55 Blood Culture - Final Blood NO GROWTH AFTER 5 DAYS Orders Category Date Time Status Admit - [facility] Routine AdmDCTranf 08/10/19 13:58 Active Activity - Bed Rest with BRP ORDERED Care 08/10/19 13:58 Active Cardiac Monitoring DIRECTED Care 08/10/19 10:26 Completed IV Insertion ORDERED Care 08/10/19 10:26 Completed Notify MD of + Sepsis Screen NOW Care 08/10/19 10:26 Completed Notify Physician As Ordered Care 08/10/19 10:26 Active Vital Signs Order ORDERED Care 08/10/19 13:58 Active NPO Diet 08/10/19 14:00 Completed CHEST-1 VIEW [RAD] Stat Exams 08/10/19 10:26 Completed ABG [RESP] Routine Lab 08/10/19 10:45 Completed BLOOD CULTURE [BLDCUL] Stat Lab 08/10/19 16:53 Completed CBC WITH DIFF [HEME] Stat Lab 08/10/19 10:55 Completed CK PROFILE [SP CHEM] Stat Lab 08/10/19 10:55 Completed COMPREHENSIVE METABOLIC PANEL [CHEM] Stat Lab 08/10/19 10:55 Completed LACTATE, PLASMA [CHEM] Lab 08/10/19 10:55 Completed PROTIME WITH INR [COAG] Stat Lab 08/10/19 10:55 Completed PTT [COAG] Stat Lab 08/10/19 10:55 Completed TROPONIN T Stat Lab 08/10/19 10:55 Completed URINALYSIS W/POSS RFLX CULT [URINALYSIS] Stat Lab 08/10/19 11:25 Completed 0.9% Sodium Chloride Inj [Ns] 1,000 ml Med 08/10/19 13:58 Discontinued IV 100 mls/hr 0.9% Sodium Chloride Inj [Ns] 1,000 ml Med 08/10/19 10:34 Discontinued IV 999 mls/hr 0.9% Sodium Chloride Inj [Ns] 1,000 ml Med 08/10/19 10:40 Discontinued IV 999 mls/hr Acetaminophen [Tylenol] Med 08/10/19 13:58 Discontinued 650 mg PO Q6H PRN PRN Albuterol 2.5MG/Ipratrop 0.5MG [Duoneb (A & A)] Med 08/10/19 10:32 Discon tinued 3 ml INH NOW ONE Albuterol 2.5MG/Ipratrop 0.5MG [Duoneb (A & A)] Med 08/10/19 15:30 Discontinued 3 ml INH RTQ4H Alprazolam [Xanax] Med 08/10/19 14:01 Discontinued 0.25 mg PO NOW ONE Dexamethasone [Decadron] Med 08/10/19 10:59 Discontinued 4 mg IV NOW ONE Levofloxacin [Levaquin] Med 08/10/19 14:15 Discontinued 500 mg PO DAILY Aerosol Treatments Routine Oth 08/10/19 10:33 Completed Aerosol Treatments Routine Oth 08/10/19 14:00 Completed Aerosol Treatments Stat Oth 08/10/19 10:33 Completed Aerosol Treatments Stat Oth 08/10/19 14:00 Completed Oxygen Device Routine Oth 08/10/19 13:59 Completed Oxygen Device Stat Oth 08/10/19 10:26 Completed Transfer/Admit Order [TRANSFER] Routine Transfer 08/10/19 14:03 Completed Result Diagrams: 08/10/19 10:55 08/11/19 05:13 - EKG 1 Time of EKG reading by physician:: 10:38 EKG Read and Signed by:: Ori King EKG Interpretation (*Must complete 3 of following elements*): Abnormal Rate: 108 (bilateral enlargement ) Rhythm: ST [place]: normal QRS: normal PA Interval: normal ST Wave: normal Comments: septal infarct, age undetermined - XRAY 1 XRAY Study: Chest Impression: Abnormal, See EMR Report ( EXAM: CHEST-1 VIEW - 08/10/2019 HISTORY: sepsis protocol TECHNIQUE: Portable chest one view COMPARISON: 03/30/2019 FINDINGS: Heart size is normal. There is mild prominence of central markings similar to prior. There is no acute consolidation, pleural effusion, or pneumothorax identified. Central venous catheter remains in place. IMPRESSION: Mild prominence of central markings similar to prior. No acute changes. Electronically signed by Eugene Duenas 08/10/2019 10:49 AM) Comparison with other Films: no changes Departure - Departure Date of Disposition Decision: 08/10/19 Time of Disposition Decision: 14:52 DIAGNOSIS: COPD with exacerbation Disposition: ADMITTED INPATIENT 09 Certified Medical Emergency: Emergent Condition: Stable - Critical Care Note This patient required my direct & personal management of CC.: No Attestation - Physician/ SCOTT Attestation Patient care was provided by Advanced Practice Provider:: No The physician spent face to face time with patient:: Yes Advanced Practice Provider documentation review:: Supervising physician onsite and consulted in the evaluation and care of this patient. The physician did have a face to face encounter with the patient. This chart was documented by the indicated scribe, (Jamaica Sumner Scribe) and accurately reflects the services I performed and decisions made by , Ori King DO, as attested by the provider's signature.
== END 2019-08-14 13:45 | disposition home health service (06) | DRG 191 ==
LOC: ED 10:13 → 1N 14:24
PROVIDERS: ADMIT Internal Medicine; ATTEND Family Medicine

== ENCOUNTER 2019-10-25 20:46 | Inpatient (IN) ==
[2019-10-25] MEDS ORDERED: FENTANYL IV ONE (21:23)
--- NOTE | 2019-10-25 21:48 | Diag Imaging Result Doc PS360 ---
EXAM: CT HEAD W/O CONTRAST 10/25/2019 HISTORY: fall, head trauma TECHNIQUE: This exam was performed using automated exposure control, adjustment of mA or kV according to patient size, and/or use of iterative reconstruction technique. COMMENT: There are patchy lucencies in the white matter both hemispheres. There is no evidence of mass effect, bleed, or abnormal extra-axial fluid collection. There is some sclerosis of the right maxillary sinus and air-fluid level consistent with sinusitis. The calvarium is intact. Appeared to 08/13/2019 the fluid level and other changes in the right maxillary sinus were present previously. The appearance the brain has not changed significantly. IMPRESSION: Chronic ischemic microvascular white matter changes. Right maxillary sinusitis. Electronically signed by Griffin Lane 10/25/2019 9:46 PM
--- NOTE | 2019-10-25 21:59 | Diag Imaging Result Doc PS360 ---
EXAM: XRAY PELVIS W/HIP 2-3VW RT 10/25/2019 HISTORY: fall, probable hip fracture TECHNIQUE: AP pelvis and right hip three views COMMENT: There is a fracture of the right femoral neck. There is severe degenerative change in the left hip. IMPRESSION: Fracture right femoral neck. Electronically signed by Griffin Lane 10/25/2019 9:57 PM
--- NOTE | 2019-10-25 22:00 | Diag Imaging Result Doc PS360 ---
EXAM: CHEST-1 VIEW 10/25/2019 HISTORY: fall TECHNIQUE: AP chest COMMENT: There is increased interstitial markings throughout much of the right lung. There is a Port-A-Cath on the left. There is an apparent catheter fragment which may be in the right atrium and ventricle. This was also the case on 09/18/2019. The interstitial opacity is somewhat worse. IMPRESSION: Pulmonary edema. Electronically signed by Griffin Lane 10/25/2019 9:58 PM
--- NOTE | 2019-10-25 22:35 | PROVIDER DOCUMENTATION ---
This chart was entered by Debbie Rivera Scribe, acting as scribe for Phuc Burris MD. HPI-General Adult - General Chief Complaint: Hip Pain Stated Complaint: hip fx Time Seen by Provider: 10/25/19 21:18 Source: patient, EMS Allergies/Adverse Reactions: Patient Allergies Allergy/AdvReac Type Severity Reaction Status Date / Time codeine [Codeine] Allergy RASH Verified 10/25/19 21:54 hydrocodone bitartrate * Allergy VOMITING Verified 10/25/19 21:54 [From Lortab] Penicillins Allergy SWELLING Verified 10/25/19 21:54 Sulfa (Sulfonamide Allergy ITCHING Verified 10/25/19 21:54 Antibiotics) [Sulfa(Sulfonamide Antibiotics)] Home Medications: Home Medication List Medication Instructions Recorded Confirmed Last Taken Type Albuterol 2.5MG/Ipratrop 0.5MG 3 ml INH [id number] neb 04/03/19 10/25/19 Unknown Rx [Duoneb (A & A)] Furosemide [Lasix] 40 mg PO DAILY 08/10/19 10/25/19 08/10/19 History Prednisone 10 mg PO DAILY 09/18/19 10/25/19 Unknown History Clonazepam [Klonopin] 0.5 mg PO TID 10/25/19 10/25/19 Unknown History Potassium Chloride E.r. [Klor-Con] 10 meq PO BID 10/25/19 10/25/19 Unknown Histo ry Venlafaxine HCl [Venlafaxine HCl 37.5 mg PO DAILY 10/25/19 10/25/19 Unknown History ER] - History of Present Illness -Gen Adult Nature of Presenting Problems: pt is a 79 yr old female presenting via EMS post fall with complaint of low back and right hip pain, pt reports trip/fall tonight, no LOC, denies striking her head, pt admits pain to hip, unable to ambulate psot fall, shortening and rotation to right leg noted, pt was given Fentanyl [employer]ACHINE by EMS. pt denies any other complaints Location of Pain/Injury: reports: lower extremity Pain Radiation: reports: no radiation Quality of Pain: reports: sharp Severity: reports: moderate Onset/Duration: reports: just prior to arrival Timing: reports: still present Context/Activities at Onset: reports: none Modifying Factors: improves with: nothing Associated Symptoms: reports: denies symptoms Similar Symptoms Previously?: No Recently seen or treated by another doctor?: No Review of Systems - Adult - REVIEW OF SYSTEMS - ADULT Constitutional: reports: no symptoms reported Eyes: reports: no symptoms reported Ears, Nose, Mouth & Throat: reports: no symptoms reported Cardiovascular: reports: no symptoms reported Respiratory: reports: no symptoms reported Gastrointestinal: reports: no symptoms reported Genitourinary: reports: no symptoms reported Musculoskeletal: reports: see HPI Integumentary: reports: no symptoms reported Neurological: reports: no symptoms reported Psychiatric: reports: no symptoms reported Endocrine: reports: no symptoms reported Hematologic/Lymphatic: reports: no symptoms reported Allergic/Immunologic: reports: no symptoms reported All Other Systems: Reviewed and Negative Past History - Adult - PAST MEDICAL HISTORY-ADULT Review of Records: reports: Old Records Reviewed, Nursing Assessment Review, Medications Reviewed, Social history reviewed & non-contributory. Major Childhood Illnesses: reports: denies history Cardiovascular: reports: CHF, HTN Respiratory: reports: asthma, COPD Gastrointestinal: reports: denies history Obstetrical/Gynecological: reports: denies history Genitourinary: reports: denies history Musculoskeletal: reports: denies history Neurological: reports: denies history Psychiatric: reports: denies history Endocrine/Immune: reports: Lymphoma Other Conditions: reports: denies history - PRIOR SURGERIES/PROCEDURES Surgical/Procedure History: reports: hysterectomy, other - PRIOR HOSPITALIZATIONS Prior Hospitalizations: reports: for other non-related - IMMUNIZATION STATUS Childhood Immunizations: See Nurse Assessment Flu Vaccine: See Nurse Assessment - FAMILY HISTORY Family History: reviewed, not pertinent Physical Exam-General - PHYSICAL EXAM-ADULT Initial Vital Signs Reviewed: Yes - CONSTITUTIONAL General Appearance: alert, no apparent distress, obese - EYES Eyes: PERRL/EOMI - HEAD, EARS, NOSE, MOUTH & THROAT HENMT: normocephalic/atraumatic, moist mucous membranes - NECK Neck: non-tender, full range of motion, supple, normal inspection - RESPIRATORY Respiratory: chest non-tender, lungs clear, normal breath sounds, no respiratory distress, no accessory muscle use - CARDIOVASCULAR Cardiovascular: normal peripheral pulses, regular rate, rhythm, no edema - GASTROINTESTINAL (ABDOMEN) Abdominal Exam: non tender, soft - LYMPHATIC Lymphatic: no adenopathy - MUSCULOSKELETAL Back Exam: no CVA tenderness, no vertebral tenderness Extremity: tenderness (right hip tenderness), other (shortnening and rotaion noted to right leg) - SKIN Integumentary: other (1cm skin tear noted to right elbow, no active bleeding, wound self closed) - NEUROLOGIC Neurologic: grossly normal - PSYCHIATRIC Psych/Mental Status: normal mood/affect, oriented x 3 Progress - PLAN OF CARE/RESULTS Result Diagrams: 10/25/19 22:17 Departure - Departure Date of Disposition Decision: 10/25/19 Time of Disposition Decision: 22:34 DIAGNOSIS: Closed right hip fracture Qualifiers: Encounter type: initial encounter Qualified Code(s): S72.001A - Fracture of unspecified part of neck of right femur, initial encounter for closed fracture Disposition: ADMITTED INPATIENT 09 Certified Medical Emergency: Emergent Condition: Stable - Critical Care Note This patient required my direct & personal management of CC.: No Attestation - Physician/ SCOTT Attestation Patient care was provided by Advanced Practice Provider:: No The physician spent face to face time with patient:: Yes Advanced Practice Provider documentation review:: Supervising physician onsite and consulted in the evaluation and care of this patient. The physician did have a face to face encounter with the patient. This chart was documented by the indicated scribe, (Debbie Rivera, Marybel) and accurately reflects the services I performed and decisions made by me, Phuc Burris MD, as attested by the provider's signature.
[2019-10-25 22:44] LABS: BASO# 0.01 X1000 (0.0-0.2); BASO% 0.1 % (0.0-0.8); EOS# 0.02 X1000 (0.0-0.7); EOS% 0.1 % (0.0-10.0); HEMATOCRIT 31.3 % (37.0-47.0); HEMOGLOBIN 10.4 g/dL (12.0-16.0); IMM GRAN# 0.12 X1000 (0.0-0.04); IMM GRAN% 0.8 % (0.0-0.5); LYMPH# 0.76 X1000 (1.2-3.4); LYMPH% 5.3 % (20.5-51.1); MCH 29.7 PG (27-31); MCHC 33.2 g/dL (33-37); MCV 89.4 FL (81-99); MONO# 1.46 X1000 (0.11-0.59); MONO% 10.1 % (1.7-9.3); MPV 9.2 FL (7.4-10.4); NEUT% 83.6 % (42.2-75.2); PLT 332 X1000 (130-400); RDW 14.2 % (11.5-14.5); WBC 14.47 X1000 (4.8-10.8)
[2019-10-25 22:50] LABS: INR 1.08; PROTIME 14.1 Seconds (11.0-16.0)
[2019-10-25 22:51] LABS: PTT 22.3 Seconds (22.3-41.8)
[2019-10-25 23:47] LABS: ALB/GLOB RATIO 2.1; ALBUMIN 3.7 g/dL (3.5-5.0); CALCIUM 8.9 mg/dL (8.8-10.2); CREATININE 1.1 mg/dL (0.5-0.9); POTASSIUM 3.8 mmol/L (3.5-5.1); TOTAL BILIRUBIN 0.81 mg/dL (0.20-1.00); TOTAL PROTEIN 5.5 g/dL (6.3-8.3)
--- NOTE | 2019-10-25 23:57 | EKG Report ---
Test Performed on : 10/25/2019 10:45:32 PM Test Reason : syncope Blood Pressure : / mmHG Vent. Rate : 101 BPM Atrial Rate : 101 BPM P-R Int : 130 ms QRS Dur : 074 ms QT Int : 332 ms P-R-T Axes : 062 052 042 degrees QTc Int : 430 ms Sinus tachycardia. with premature supraventricular complexes. Possible Left atrial enlargement Borderline ECG When compared with ECG of 18-SEP-2019 21:40, (Unconfirmed) premature supraventricular complexes. are now present T wave inversion no longer evident in Inferior leads T wave inversion no longer evident in Anterior leads Unconfirmed Result
[2019-10-26] MEDS ORDERED: ZOFRAN IV PRN (01:09)
--- NOTE | 2019-10-26 02:08 | HISTORY AND PHYSICAL ---
CHIEF COMPLAINT: Status post fall, right hip pain. HISTORY OF PRESENTING ILLNESS: A 79-year-old elderly female with a history of COPD, lymphoma in remission, chronic respiratory failure and hyperlipidemia, who had presented to emergency department after she had a fall. Apparently, she was getting ready to sit up on the table and then somehow she fell. She developed moderate amount of pain in the right hip region and subsequently she was brought to the emergency department. In the ED, she was evaluated. She had imaging done which did show fracture of the right femoral neck. Her case was discussed with Orthopedics who recommended admission for further evaluation and management. At the time of my examination, the patient denied any fever, chills, chest pain, shortness of breath. However, patient is a poor historian and most of the history is obtained from family members and previous records. PAST MEDICAL HISTORY: Includes COPD, lymphoma in remission, chronic respiratory failure, history of AAA, hyperlipidemia. PAST SURGICAL HISTORY: Hysterectomy, cholecystectomy, cataract surgery. ALLERGIES: Penicillin, codeine, hydrocodone, sulfa. CURRENT MEDICATIONS: Albuterol nebulizers 4 times a day, clonazepam 0.5 mg p.o. t.i.d., Lasix 40 mg p.o. daily, prednisone 10 mg p.o. daily, venlafaxine 37.5 mg p.o. daily. SOCIAL HISTORY: She is a former smoker. No history of alcohol or illicit drug use. FAMILY HISTORY: No history of coronary artery disease. REVIEW OF SYSTEMS: Limited. PHYSICAL EXAMINATION: GENERAL: The patient is resting comfortably. VITAL SIGNS: Temperature 98.4 degrees, pulse 99, respirations 16, blood pressure 127/82. HEENT: Extraocular movements intact. PERRLA. NECK: No masses. CHEST: Rhonchi. CARDIOVASCULAR: Regular rate and rhythm. ABDOMEN: Soft, positive bowel sounds. EXTREMITIES: Right hip tenderness. NEUROLOGIC: She is awake, alert, oriented x1. GENITOURINARY: No bladder distention. SKIN: Warm. LABORATORIES AND STUDIES: WBCs 14.47, hemoglobin 10.4, hematocrit 31.3, platelets 332,000. Other labs still pending. X-rays of the hip show a fracture of the right femoral neck. Chest x-ray shows some pulmonary edema. ASSESSMENT: This is a 79-year-old elderly female with a history of chronic obstructive pulmonary disease, lymphoma, chronic respiratory failure and hyperlipidemia, who had presented to emergency department after she had a fall. She developed moderate amount of pain in the right hip region. She had imaging done in the ED which did show a fracture of the right femoral neck. Her case was discussed with Orthopedics who recommended admission for further management. 1. Status post mechanical fall. 2. Fracture of the right femoral neck. 3. Chronic obstructive pulmonary disease. PLAN: 1. We will admit patient to medical floor with telemetry. 2. We will keep patient NPO, give adequate pain control and consult Orthopedics. 3. Continue with Connie p.r.n. 4. We will start anticoagulation for DVT prophylaxis after her surgery. 5. We will continue to follow, and reassess, make further recommendation based on patient's clinical course. cc: Joseph Charles MD
[2019-10-26] MEDS: MORPHINE IV PRN ×4 (02:46→18:52)
[2019-10-26 07:38] LABS: URINE SOURCE CATH
[2019-10-26 07:40] LABS: BILIRUBIN URINE NEGATIVE (NEGATIVE); BLOOD URINE NEGATIVE (NEGATIVE); COLOR YELLOW; GLUCOSE URINE NEGATIVE (NEGATIVE); KETONE URINE NEGATIVE (NEGATIVE); LEUKOCYTES URINE NEGATIVE (NEGATIVE); NITRITE URINE NEGATIVE (NEGATIVE); PROTEIN URINE NEGATIVE (NEGATIVE); SP GRAVITY URINE 1.012; TURBIDITY URINE CLEAR (CLEAR); UROBILINOGEN URINE NORMAL (NORMAL)
[2019-10-26 08:23] LABS: UR EPITHELIAL CELLS <10 /HPF (<10); URINE BACTERIA NEGATIVE /HPF; URINE RBC <10 /HPF (<10); URINE WBC <10 /HPF (<10)
[2019-10-26 08:41] LABS: URINE CRYSTALS NONE SEEN; URINE YEAST NONE SEEN
[2019-10-26] MEDS ORDERED: LASIX PO SCH (09:00)
[2019-10-26] MEDS ORDERED: VANCOMYCIN 1 GM/NS 1 GM/250 ML IVPB IV ONE (09:27)
--- NOTE | 2019-10-26 09:34 | PROGRESS NOTE ---
DATE: 10/26/2019 The patient is a 79-year-old, white female with COPD and pulmonary edema, who fell at home last evening, resulting in a right hip fracture. Dr. Nicholson was consulted. She is to have surgery tomorrow. VITAL SIGNS: Temperature 100.4 degrees, heart rate 113, respirations 28, blood pressure 104/67, O2 saturation on 2 liters nasal oxygen 93%. LABORATORY DATA: Hemoglobin 10.4, hematocrit 31.3, white blood count 14,400. Sodium 131, potassium 3.8, BUN 17, creatinine 1.1, glucose 117, total protein 5.5, albumin 3.7. Troponin T 0.019. Chest x-ray showed pulmonary edema. There is possibility of pneumonia. She will be treated with intravenous Rocephin as well as Lasix. She has been receiving prednisone 10 mg p.o. daily for her COPD. Morphine is ordered for pain. cc: Roman Goode MD
--- NOTE | 2019-10-26 10:02 | ORTHOPAEDICS CONSULTATION ---
DATE: 10/26/2019 CHIEF COMPLAINT: Right hip pain. HISTORY OF PRESENT ILLNESS: Jackie Arce is a 79-year-old female status post fall. Complains of right hip pain and inability to ambulate. She was seen in the emergency room, diagnosed with a femoral neck fracture, and I was asked to see her in orthopedic consultation. PHYSICAL EXAMINATION: General: Reveals a well-developed, well-nourished female. She is alert, oriented, and cooperative with the examination. She has pain with any range of motion of her hip. Her leg is shortened and externally rotated. Her leg is otherwise neurovascularly intact. PAST MEDICAL HISTORY: See admission history and physical. PAST SURGICAL HISTORY: See admission history and physical. MEDICINES: See admission history and physical. ALLERGIES: See admission history and physical. REVIEW OF SYSTEMS: Negative except as noted above. LABORATORY DATA: X-rays reveal a femoral neck fracture versus a basicervical femoral neck fracture. PLAN: On the x-rays, I cannot completely evaluate the fracture. Therefore, I am going to get a CT scan today. We will plan on making her NPO after midnight and plan on fixing her hip tomorrow. I have discussed this with the family. I have discussed with them the risks, benefits, and alternatives of surgery including, but not limited to bleeding, nerve damage, infection, risk from anesthesia, hardware failure, malunion, nonunion, hip dislocation, leg length inequality, deep venous thrombosis resulting in pulmonary embolus up to including loss of limb or life, and other imponderables. All questions were answered. No guarantees were given. They requested to proceed as planned. We will schedule surgery tomorrow with the appropriate procedure as determined by the CT scan. cc: MD Roman Yoder MD
[2019-10-26] MEDS: EFFEXOR XR PO SCH (10:13)
[2019-10-26] MEDS: LASIX IV SCH ×2 (10:14→22:30)
[2019-10-26] MEDS: PREDNISONE PO SCH (10:14)
[2019-10-26] MEDS: KLONOPIN PO SCH ×3 (10:14→22:30)
--- NOTE | 2019-10-26 10:18 | Diag Imaging Result Doc PS360 ---
EXAM: CT PELVIS W/O CONTRAST 10/26/2019 HISTORY: Evaluate right hip fracture for surgery TECHNIQUE: This exam was performed using automated exposure control, adjustment of mA or kV according to patient size, and/or use of iterative reconstruction technique. COMMENT: 3-D surface reconstructions of the right pelvis and hip were performed. There is a fracture of the femoral neck which has been previously demonstrated on plain radiography. There is some impaction of the fracture with the distal fragment of the femoral neck displaced laterally. There is no evidence of acute bony abnormality in the pelvis. There is severe degenerative facet disease at the L5-S1 level bilaterally. There is an abdominal aortic aneurysm which is partially imaged and which measures 2.7 cm in AP dimension on the first image. Previously on 11/12/2012 this measured 2.9 cm in greatest dimension. Some hemarthrosis is present in the right hip joint. There is also an apparent effusion and severe degenerative change with osteophyte formation in the left femoral head. The possibility of previous ischemic necrosis of the left femoral head cannot be excluded. IMPRESSION: Right femoral neck fracture as described. 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 Abdominal aortic aneurysm. Electronically signed by Griffin Lane 10/26/2019 10:15 AM
[2019-10-26] MEDS: ROCEPHIN 1 GM in NS 50 ML IV SCH (12:11)
[2019-10-26] MEDS: KLOR-CON PO SCH ×2 (13:20→17:40)
[2019-10-26] MEDS: DUONEB (A & A) INH PRN ×2 (20:38→23:30)
[2019-10-27] MEDS: DUONEB (A & A) INH PRN ×4 (03:40→19:47)
[2019-10-27] MEDS: MORPHINE IV PRN (04:12)
--- NOTE | 2019-10-27 07:47 | PROGRESS NOTE ---
DATE: 10/27/2019 Vital signs stable with temperature 98.0 degrees, heart rate 103, respirations 16, blood pressure 116/65, O2 saturation on nasal oxygen of 93%. She is still experiencing moderate pain in the right hip despite morphine. CT scan of her pelvis and hip yesterday revealed osteonecrosis of the left hip and a right femoral neck fracture. There was an abdominal aortic aneurysm about 2.9 cm in greatest dimension. This was increased from 2.7 cm in 2013. Chest is clear to auscultation. Abdomen is soft. Mental status is baseline. PLAN: Surgery of right hip today. cc: Roman Goode MD
[2019-10-27] MEDS ORDERED: BLISTEX MEDICATED BERRY LIP BALM TOP PRN (08:29)
[2019-10-27 08:44] LABS: BASO# 0.02 X1000 (0.0-0.2); BASO% 0.1 % (0.0-0.8); EOS# 0.06 X1000 (0.0-0.7); EOS% 0.4 % (0.0-10.0); HEMATOCRIT 33.6 % (37.0-47.0); IMM GRAN# 0.08 X1000 (0.0-0.04); IMM GRAN% 0.5 % (0.0-0.5); LYMPH% 8.2 % (20.5-51.1); MCH 30.1 PG (27-31); MCHC 32.7 g/dL (33-37); MCV 91.8 FL (81-99); MONO# 1.46 X1000 (0.11-0.59); MPV 9.3 FL (7.4-10.4); NEUT# 11.73 X1000 (1.4-6.5); NEUT% 80.8 % (42.2-75.2); PLT 324 X1000 (130-400); RBC 3.66 XMIL (4.2-5.4); RDW 14.2 % (11.5-14.5); WBC 14.55 X1000 (4.8-10.8)
[2019-10-27 09:31] LABS: CALCIUM 9.1 mg/dL (8.8-10.2); POTASSIUM 4.2 mmol/L (3.5-5.1)
[2019-10-27] MEDS: KLONOPIN PO SCH (09:57)
[2019-10-27] MEDS: KLOR-CON PO SCH (09:57)
[2019-10-27] MEDS: PREDNISONE PO SCH (09:57)
[2019-10-27] MEDS: ROCEPHIN 1 GM in NS 50 ML IV SCH (09:58)
[2019-10-27] MEDS: EFFEXOR XR PO SCH (09:58)
[2019-10-27] MEDS: LASIX IV SCH ×2 (09:59→22:19)
[2019-10-27] MEDS ORDERED: XYLOCAINE-MPF 2% ONE (10:53)
[2019-10-27] MEDS ORDERED: FENTANYL ONE (10:53)
[2019-10-27] MEDS ORDERED: DIPRIVAN 1% ONE (10:53)
[2019-10-27] MEDS ORDERED: SODIUM CHLORIDE 0.9% ONE (11:37)
[2019-10-27] MEDS ORDERED: MARCAINE 0.25% PF ONE (11:37)
[2019-10-27] MEDS ORDERED: EXPAREL 1.3% ONE (11:37)
[2019-10-27] MEDS ORDERED: TORADOL ONE (11:37)
[2019-10-27] MEDS ORDERED: DURAMORPH ONE (11:37)
[2019-10-27] MEDS ORDERED: NEOSPORIN G.U. IRRIGANT ONE (11:58)
[2019-10-27] MEDS ORDERED: CYKLOKAPRON 1,000 MG/NS 1,000 MG/100 ML IVPB ONE (11:58)
[2019-10-27] MEDS ORDERED: EPHEDRINE ONE (12:09)
[2019-10-27] MEDS ORDERED: NEO-SYNEPHRINE ONE (12:10)
[2019-10-27] MEDS ORDERED: SODIUM CHLORIDE 0.9% 10 ML ONE (12:10)
[2019-10-27] MEDS ORDERED: VANCOMYCIN 1 GM/NS 1 GM/250 ML IVPB ONE (12:17)
[2019-10-27] MEDS ORDERED: PITRESSIN ONE (13:10)
[2019-10-27] MEDS ORDERED: NS 1,000 ML ONE (14:01)
[2019-10-27] MEDS ORDERED: MILK OF MAGNESIA PO PRN (14:15)
[2019-10-27] MEDS ORDERED: MORPHINE IV PRN ×2 (14:15)
[2019-10-27] MEDS ORDERED: OXY IR PO PRN (14:15)
[2019-10-27] MEDS ORDERED: ZOFRAN IV PRN (14:15)
[2019-10-27] MEDS ORDERED: ZOFRAN ODT PO PRN (14:15)
--- NOTE | 2019-10-27 19:27 | OPERATIVE NOTE ---
PROCEDURE DATE: 10/27/2019 PREOPERATIVE DIAGNOSIS: Right displaced femoral neck fracture. POSTOPERATIVE DIAGNOSIS: Right displaced femoral neck fracture. PROCEDURE: Right hip bipolar hemiarthroplasty using a DePuy size 5 standard offset stem with a + 528 mm head and a 45 mm bipolar head. ANESTHESIA: Spinal. SURGEON: Zana Nicholson MD. MERCHANDISING ASSISTANT: Macy, who was present throughout the case. He was critical for successful completion of the case. BLOOD LOSS: Minimal. DESCRIPTION OF PROCEDURE: The patient was brought to the operative suite and placed in supine position. After successful administration of spinal anesthesia, the patient was placed on the OSI table in the usual position for right hip. The right hip was then prepped and draped in usual sterile fashion. A longitudinal incision was made beginning 3 cm distal and 3 cm lateral to the anterior superior iliac spine and extending distally and slightly laterally 8 cm, dissected sharply through the skin subcutaneous tissue down tensor fascia. The tensor fascia was incised and dissected bluntly down to the deep tensor fascia. The deep tensor fascia was incised. The circumflex vessels were electrocauterized exposing the anterior capsule. A T capsulotomy was performed exposing the femoral neck. The femoral neck cut was made with oscillating saw. The femoral head was removed. The power corkscrew was measured to accept a 45 mm. The 45 mm was trialed. Attention was then directed to the femur. It was externally rotated, extended, adducted, and elevated out of the wound with the hook on the OSI bed. The lateral neck was rongeured. The canal was serially broached to a size 5. A size 5 standard offset +5 neck length was found to be excellent fit and fill of the stem. Excellent offset and excellent stability of the hip and leg length. The trial was then removed. Definitive stem was seated onto the femur and then the 28 mm + 5 head with a 45 mm bipolar was seated onto the Emmanuel taper and then the hip was again reduced. It was again found to be in excellent position. The hip was copiously irrigated with normal saline containing the usual irrigant and Vashe irrigation and then the anterior capsule was repaired with 0 V-Loc. The tensor fascia was closed with 0 V-Loc. The skin edge was approximated with 2-0 Vicryl, 4-0 Monocryl and a Prineo dressing. The patient tolerated the procedure well without complication. At the end the procedure, all counts correct x2. The patient was transferred to the recovery room stable condition. cc: MD Roman Yoder MD
[2019-10-27] MEDS: ULTRAM PO SCH (21:00)
[2019-10-28] MEDS ORDERED: VANCOMYCIN 1 GM/NS 1 GM/250 ML IVPB IV ONE (01:00)
[2019-10-28] MEDS: ULTRAM PO SCH ×5 (04:40→17:51)
[2019-10-28] MEDS: COLACE PO SCH ×3 (04:41→22:01)
[2019-10-28] MEDS: PERIDEX MT SCH ×3 (04:41→22:01)
[2019-10-28] MEDS: KLONOPIN PO SCH ×4 (04:41→22:02)
[2019-10-28] MEDS: XARELTO PO SCH (05:45)
[2019-10-28] MEDS: DUONEB (A & A) INH PRN ×4 (07:50→19:54)
[2019-10-28 07:52] LABS: HEMOGLOBIN 8.8 g/dL (12.0-16.0)
[2019-10-28 08:21] LABS: CALCIUM 8.2 mg/dL (8.8-10.2); CREATININE 1.3 mg/dL (0.5-0.9); POTASSIUM 3.8 mmol/L (3.5-5.1)
[2019-10-28] MEDS: ROCEPHIN 1 GM in NS 50 ML IV SCH (10:04)
[2019-10-28] MEDS: NS 1,000 ML IV SCH (10:04)
[2019-10-28] MEDS: LASIX IV SCH ×2 (10:05→21:58)
[2019-10-28] MEDS: PREDNISONE PO SCH (10:05)
[2019-10-28] MEDS: PEPCID PO SCH (10:05)
[2019-10-28] MEDS: EFFEXOR XR PO SCH (10:06)
[2019-10-28] MEDS: MOBIC PO SCH (10:06)
[2019-10-28] MEDS: KLOR-CON PO SCH ×3 (10:06→21:58)
--- NOTE | 2019-10-28 10:29 | PROGRESS NOTE ---
DATE: 10/28/2019 Vital signs stable with temperature 99.1 degrees, heart rate 106, respirations 22, blood pressure 125/51, and O2 saturation 100% on Ventimask. The patient continues to be short of breath with tachypnea. Lungs reveal mild bilateral wheezing. She is receiving nebulizer treatments with albuterol. She also is receiving vancomycin. I and O positive August 1134 over the last 24 hours. Prior to that, it had been negative. She is receiving Lasix 40 mg IV every 12 hours. Her peripheral edema is less. Hip surgery went well yesterday with replacement of her femoral head. Physical Therapy will attempt to ambulate today. PLAN: Continue supportive care, physical therapy, and social service consult with plan for rehab. cc: Roman Goode MD
--- NOTE | 2019-10-28 15:24 | ORTHOPAEDICS PROGRESS NOTE ---
DATE: 10/28/2019 SUBJECTIVE: Jackie Arce is a 79-year-old female who is postoperative day 1 from a right bipolar hemiarthroplasty. She has no complaints. OBJECTIVE: She is a well-developed, well-nourished female. She is alert and cooperative. Exam: Her wound is clean, dry, intact. Her leg is neurovascularly intact. Her hematocrit is 33.6. Her hemoglobin is 11. IMPRESSION: Stable right bipolar hemiarthroplasty. PLAN: We will get Physical Therapy to work with her today. She will likely go to rehab later in the week. cc: MD Roman Yoder MD
[2019-10-29] MEDS: ULTRAM PO SCH ×3 (00:10→15:33)
[2019-10-29] MEDS: DUONEB (A & A) INH PRN ×4 (03:32→15:20)
[2019-10-29] MEDS: NS 1,000 ML IV SCH ×2 (04:00→15:34)
[2019-10-29] MEDS: XARELTO PO SCH (06:42)
[2019-10-29 06:47] LABS: HEMATOCRIT 25.3 % (37.0-47.0)
--- NOTE | 2019-10-29 07:23 | Diag Imaging Result Doc PS360 ---
EXAM: CHEST-PORTABLE 10/29/2019 HISTORY: dyspnea TECHNIQUE: AP portable at 0527 COMMENT: There is suboptimal inspiration. There is increased opacity of the right lower lobe and upper lobe compared to 10/25/2019. IMPRESSION: Worsened pulmonary edema and/or pneumonia on the right. Electronically signed by Griffin Lane 10/29/2019 7:21 AM
--- NOTE | 2019-10-29 08:54 | PROGRESS NOTE ---
DATE: 10/29/2019 Vital Signs show temperature 97.7 degrees, heart rate 95, respirations 22, blood pressure 115/60, and O2 saturation 96 on non-rebreather with 100% O2. She became more hypoxic this morning. She is not coughing. Lungs sound about the same. Hematocrit dropped to 25. She is alert and responsive. PLAN: Transfuse 1 unit. Nunez will be left in place for another day. IV will be restarted since it infiltrated this morning. cc: Roman Goode MD
[2019-10-29] MEDS: KLOR-CON PO SCH ×5 (09:00→17:40)
[2019-10-29] MEDS: EFFEXOR XR PO SCH (09:32)
[2019-10-29] MEDS: COLACE PO SCH ×2 (09:32→20:32)
[2019-10-29] MEDS: PEPCID PO SCH (09:32)
[2019-10-29] MEDS: KLONOPIN PO SCH ×4 (09:32→20:32)
[2019-10-29] MEDS: ROCEPHIN 1 GM in NS 50 ML IV SCH (09:33)
[2019-10-29] MEDS: MOBIC PO SCH (09:33)
[2019-10-29] MEDS: LASIX IV SCH ×2 (09:33→20:30)
[2019-10-29] MEDS: PREDNISONE PO SCH (09:33)
[2019-10-29] MEDS: PERIDEX MT SCH ×2 (15:34→20:31)
[2019-10-30] MEDS: ULTRAM PO SCH ×4 (00:03→18:00)
[2019-10-30] MEDS: XARELTO PO SCH (05:12)
[2019-10-30 06:49] LABS: HEMATOCRIT 29.3 % (37.0-47.0); HEMOGLOBIN 9.3 g/dL (12.0-16.0)
[2019-10-30] MEDS: DUONEB (A & A) INH PRN ×3 (07:59→16:06)
[2019-10-30] MEDS: COLACE PO SCH ×2 (08:13→21:28)
[2019-10-30] MEDS: PREDNISONE PO SCH (08:13)
[2019-10-30] MEDS: EFFEXOR XR PO SCH (08:14)
[2019-10-30] MEDS: PEPCID PO SCH (08:14)
[2019-10-30] MEDS: KLOR-CON PO SCH ×3 (08:14→16:14)
[2019-10-30] MEDS: MOBIC PO SCH (08:14)
[2019-10-30] MEDS: ROCEPHIN 1 GM in NS 50 ML IV SCH (08:15)
[2019-10-30] MEDS: PERIDEX MT SCH ×2 (08:15→21:28)
[2019-10-30] MEDS: LASIX IV SCH ×2 (08:18→21:27)
--- NOTE | 2019-10-30 09:37 | PROGRESS NOTE ---
DATE: 10/30/2019 VITAL SIGNS: Temperature 98.2 degrees, heart rate 96, respirations 20, blood pressure 137/63, O2 saturation 100% on nasal oxygen. Hip pain is minimal. Hemoglobin and hematocrit were 9.3 and 29.3 respectively. PLAN: Increase Lasix. Lab and chest x-ray tomorrow morning. cc: Roman Goode MD
[2019-10-30] MEDS: KLONOPIN PO SCH ×3 (12:35→21:28)
--- NOTE | 2019-10-30 14:06 | ORTHOPAEDICS PROGRESS NOTE ---
DATE: 10/30/2019 SUBJECTIVE: Ms. Arce is a 79-year-old female who is postoperative day 3 from a right bipolar hemiarthroplasty. She has some minimal complaints. OBJECTIVE: She is a well-developed, well-nourished female. She is alert, oriented, and cooperative. Exam of her hip reveals the wound is clean, dry, and intact. ASSESSMENT: Stable right bipolar hemiarthroplasty. PLAN: She can go to rehab when cleared medically. She will need to return to see me in 2 weeks. She can have the Prineo dressing removed in 10 to 14 days from the day of surgery. cc: MD Roman Yoder MD
[2019-10-31] MEDS: ULTRAM PO SCH ×4 (00:39→18:52)
[2019-10-31] MEDS: NS 1,000 ML IV SCH ×2 (02:23→12:27)
[2019-10-31] MEDS: XARELTO PO SCH (05:41)
[2019-10-31 06:56] LABS: BASO# 0.01 X1000 (0.0-0.2); BASO% 0.1 % (0.0-0.8); EOS# 0.13 X1000 (0.0-0.7); EOS% 1.7 % (0.0-10.0); HEMATOCRIT 30.7 % (37.0-47.0); HEMOGLOBIN 9.4 g/dL (12.0-16.0); IMM GRAN# 0.05 X1000 (0.0-0.04); IMM GRAN% 0.7 % (0.0-0.5); LYMPH# 0.76 X1000 (1.2-3.4); MCH 28.9 PG (27-31); MCHC 30.6 g/dL (33-37); MCV 94.5 FL (81-99); MONO# 0.85 X1000 (0.11-0.59); MONO% 11.2 % (1.7-9.3); MPV 9.1 FL (7.4-10.4); NEUT# 5.82 X1000 (1.4-6.5); NEUT% 76.3 % (42.2-75.2); PLT 313 X1000 (130-400); RBC 3.25 XMIL (4.2-5.4); WBC 7.62 X1000 (4.8-10.8)
[2019-10-31 07:02] LABS: CALCIUM 8.6 mg/dL (8.8-10.2); CREATININE 1.2 mg/dL (0.5-0.9); POTASSIUM 4.3 mmol/L (3.5-5.1)
--- NOTE | 2019-10-31 07:25 | Diag Imaging Result Doc PS360 ---
EXAM: CHEST-PORTABLE 10/31/2019 HISTORY: pneumonia TECHNIQUE: AP portable at 0626 COMMENT: There is alveolar opacity in the inferior right upper lobe and ill-defined opacity throughout the right lower lobe. There is some improvement in the opacity and/or pleural fluid in the costophrenic angle on the right compared to 10/29/2019. The lungs are also slightly better expanded and the left base is clearer. IMPRESSION: Improved pulmonary edema and pleural effusion on the right. Electronically signed by Griffin Lane 10/31/2019 7:22 AM
--- NOTE | 2019-10-31 09:37 | PROGRESS NOTE ---
DATE: 10/31/2019 OBJECTIVE: Vital Signs: Stable with temperature 97.8 degrees, heart rate 100, respirations 18, blood pressure 104/77, O2 saturation on high-flow nasal oxygen 100%. Chest x-ray: Improved pulmonary edema and pleural effusion on the right. General: The patient is alert. Lungs: Lungs revealed mild bilateral wheezing. Abdomen: Soft. LABORATORY DATA: Hemoglobin 9.4, hematocrit 30.7, white blood count 7600 with normal differential. Sodium 141, potassium 4.3, BUN 33, creatinine 1.2, total protein 5.5. IMPRESSION: Slowly improving. Physical Therapy will assist in progressive ambulation. She will need rehab at discharge. Hopefully, this could be arranged and implemented early next week. cc: Roman Goode MD
[2019-10-31] MEDS: DUONEB (A & A) INH PRN ×4 (10:58→23:21)
[2019-10-31] MEDS: LASIX IV SCH (12:14)
[2019-10-31] MEDS: ROCEPHIN 1 GM in NS 50 ML IV SCH (12:17)
[2019-10-31] MEDS: KLOR-CON PO SCH ×3 (12:17→18:53)
[2019-10-31] MEDS: EFFEXOR XR PO SCH (12:17)
[2019-10-31] MEDS: PERIDEX MT SCH (12:17)
[2019-10-31] MEDS: PEPCID PO SCH (12:18)
[2019-10-31] MEDS: COLACE PO SCH (12:18)
[2019-10-31] MEDS: PREDNISONE PO SCH (12:18)
[2019-10-31] MEDS: MOBIC PO SCH (12:18)
[2019-10-31] MEDS: KLONOPIN PO SCH ×2 (12:23→18:21)
[2019-11-01] MEDS ORDERED: D50W SYRINGE IV ONE (00:17)
[2019-11-01] MEDS ORDERED: NS 250 ML IV ONE (00:18)
[2019-11-01] MEDS: ULTRAM PO SCH ×6 (00:43→18:16)
[2019-11-01] MEDS: LASIX IV SCH ×3 (00:43→18:50)
[2019-11-01] MEDS: KLONOPIN PO SCH ×3 (00:44→16:40)
[2019-11-01] MEDS: COLACE PO SCH ×2 (00:44→08:09)
[2019-11-01] MEDS: PERIDEX MT SCH ×2 (00:44→08:17)
[2019-11-01] MEDS: MORPHINE IV PRN ×2 (01:55→03:01)
[2019-11-01] MEDS: NS 1,000 ML IV SCH ×3 (01:55→16:57)
[2019-11-01] MEDS: DUONEB (A & A) INH PRN ×2 (07:16→15:13)
[2019-11-01] MEDS: XARELTO PO SCH (07:59)
[2019-11-01] MEDS: KLOR-CON PO SCH ×3 (08:09→18:56)
[2019-11-01] MEDS: PREDNISONE PO SCH (08:09)
[2019-11-01] MEDS: PEPCID PO SCH (08:09)
[2019-11-01] MEDS: MOBIC PO SCH (08:09)
[2019-11-01] MEDS: EFFEXOR XR PO SCH (08:11)
[2019-11-01] MEDS: ROCEPHIN 1 GM in NS 50 ML IV SCH (08:17)
[2019-11-01 12:39] LABS: BASO# 0.01 X1000 (0.0-0.2); BASO% 0.1 % (0.0-0.8); EOS# 0.07 X1000 (0.0-0.7); EOS% 0.9 % (0.0-10.0); HEMATOCRIT 30.6 % (37.0-47.0); HEMOGLOBIN 9.5 g/dL (12.0-16.0); IMM GRAN# 0.06 X1000 (0.0-0.04); IMM GRAN% 0.8 % (0.0-0.5); LYMPH# 0.55 X1000 (1.2-3.4); MCH 29.3 PG (27-31); MCV 94.4 FL (81-99); MONO# 0.65 X1000 (0.11-0.59); MONO% 8.2 % (1.7-9.3); MPV 9.1 FL (7.4-10.4); NEUT# 6.57 X1000 (1.4-6.5); PLT 283 X1000 (130-400); RBC 3.24 XMIL (4.2-5.4); RDW 14.5 % (11.5-14.5); WBC 7.91 X1000 (4.8-10.8)
[2019-11-01 13:58] LABS: ALB/GLOB RATIO 0.9; ALBUMIN 2.3 g/dL (3.5-5.0); CALCIUM 8.4 mg/dL (8.8-10.2); MAGNESIUM 1.7 mg/dL (1.5-2.7); POTASSIUM 4.5 mmol/L (3.5-5.1); TOTAL BILIRUBIN 0.26 mg/dL (0.20-1.00); TOTAL PROTEIN 4.8 g/dL (6.3-8.3)
--- NOTE | 2019-11-01 14:07 | PROGRESS NOTE ---
DATE: 11/01/2019 SUBJECTIVE: Ms. Mejia is doing fair. History part was limited. The patient admitted status post fall. Found to have fracture of her right femur. Patient is status post surgery. The patient is waiting to get well and go to the rehab. Last night, the patient was more confused. Her O2 saturation was low. Her high-flow oxygen was at lower level. The patient also have problem with hypoglycemia. Blood pressure at times low-normal. The patient's oxygen flow increased and patient seems to be doing better. Admission history and physical noted. I also talked to the nurse taking care of the patient and got some information. PAST MEDICAL HISTORY: Significant for COPD, chronic respiratory failure, lymphoma in remission, history of abdominal aortic aneurysm, hyperlipidemia, depression. OBJECTIVE: Vital signs: Blood pressure 85/53, pulse 97, respiration 18, temperature 98.2 degrees. Skin: Senile turgor. Neck: Supple. No JVD. Lungs: Bibasilar crepitations. Heart: S1 and S2 heard. Abdomen: Soft, globular. Bowel sounds present. Extremities: No cyanosis, clubbing. No acute DVT. SETTER OUT: Alert, awake uncooperative for detailed exam. IMAGING: Chest x-ray done yesterday did reveal improved pulmonary edema and pleural effusion on the right. LABORATORY DATA: Done yesterday hemoglobin 9.4, hematocrit 30.7. WBC count 7.62. Her electrolytes done yesterday BUN 33, creatinine 1.2. IMPRESSIONS: The patient does have multiple medical problems, includin. The right hip fracture status post surgery. 2. The patient does have hypoglycemia at times. 3. Hypoxemia. I am going to decrease her Lasix. 4. Depression. PLAN: Labs and medication noted. We will continue current treatment. Check appropriate labs. Fall precaution. Overall plan discussed with the patient and her nurse. cc: MD Roman Orourke MD
[2019-11-02] MEDS: KLONOPIN PO SCH ×5 (00:40→21:33)
[2019-11-02] MEDS: ULTRAM PO SCH ×4 (00:46→17:48)
[2019-11-02] MEDS: LASIX IV SCH ×4 (00:53→21:32)
[2019-11-02] MEDS: COLACE PO SCH ×3 (00:54→21:33)
[2019-11-02] MEDS: PERIDEX MT SCH ×3 (00:54→21:32)
[2019-11-02] MEDS: NS 1,000 ML IV SCH ×2 (04:08→17:47)
[2019-11-02] MEDS: DUONEB (A & A) INH PRN ×5 (08:00→22:45)
[2019-11-02] MEDS: ROCEPHIN 1 GM in NS 50 ML IV SCH (08:50)
[2019-11-02] MEDS: EFFEXOR XR PO SCH (08:51)
[2019-11-02] MEDS: PEPCID PO SCH (08:51)
[2019-11-02] MEDS: KLOR-CON PO SCH ×3 (08:51→17:53)
[2019-11-02] MEDS: PREDNISONE PO SCH (08:52)
[2019-11-02] MEDS: MOBIC PO SCH (08:52)
[2019-11-02] MEDS: XARELTO PO SCH (09:02)
--- NOTE | 2019-11-02 19:52 | PROGRESS NOTE ---
DATE: 11/02/2019 I evaluated Ms Arce around lunchtime this morning. The patient was much more alert and awake but she does have confusion and disorientation. She denied any fever or chills. Oral intake is fair. Denied any cough or expectoration. The patient is status post fall, hip fracture and surgery. Patient's son was present. Her vital signs noted.Neck: Supple. No JVD. Lungs: Bibasilar crepitations. Heart: S1 and S2 heard. Abdomen: Soft, globular. Bowel sounds present. Extremities: No cyanosis, clubbing. No acute DVT. WINDOWS 7 DEPLOYMENT LEAD: Alert, awake but patient is confused and at times disoriented. LABORATORY DATA: Done yesterday reviewed. CONSIDERATION: 1. Altered mental status delirium could be due to medication effect. Patient does have a hip fracture and a surgery. 2. Depression. 3. Patient does have encephalopathy could be due to metabolic versus medication induced. Will consider neurologist evaluation. Will check appropriate lab in the morning. Patient lives by herself. Her son was present. Overall prognosis and plan discussed. I will consider overnight pulse oximetry for close monitoring of her O2 level. cc: MD Roman Orourke MD
[2019-11-02] MEDS: MORPHINE IV PRN (23:10)
[2019-11-03] MEDS: ULTRAM PO SCH ×4 (00:36→16:55)
[2019-11-03] MEDS: KLONOPIN PO SCH ×7 (00:37→22:46)
[2019-11-03] MEDS: LASIX IV SCH ×3 (01:40→22:47)
[2019-11-03 06:43] LABS: BASO# 0.02 X1000 (0.0-0.2); BASO% 0.3 % (0.0-0.8); EOS# 0.17 X1000 (0.0-0.7); EOS% 2.2 % (0.0-10.0); HEMATOCRIT 32.5 % (37.0-47.0); HEMOGLOBIN 9.9 g/dL (12.0-16.0); IMM GRAN# 0.16 X1000 (0.0-0.04); IMM GRAN% 2.1 % (0.0-0.5); LYMPH# 0.88 X1000 (1.2-3.4); LYMPH% 11.3 % (20.5-51.1); MCH 29.2 PG (27-31); MCHC 30.5 g/dL (33-37); MCV 95.9 FL (81-99); MONO# 0.89 X1000 (0.11-0.59); MONO% 11.4 % (1.7-9.3); MPV 9.6 FL (7.4-10.4); NEUT# 5.66 X1000 (1.4-6.5); NEUT% 72.7 % (42.2-75.2); PLT 315 X1000 (130-400); RBC 3.39 XMIL (4.2-5.4); RDW 14.5 % (11.5-14.5); WBC 7.78 X1000 (4.8-10.8)
[2019-11-03] MEDS: XARELTO PO SCH (06:45)
[2019-11-03 07:19] LABS: AGAP 16; ALB/GLOB RATIO 1.5; ALBUMIN 2.5 g/dL (3.5-5.0); ALKALINE PHOSPHATASE 59 U/L (32-104); BUN 24 mg/dL (8-22); CALCIUM 8.6 mg/dL (8.8-10.2); CHLORIDE 102 mmol/L (98-107); COSMO 290; CREATININE 0.9 mg/dL (0.5-0.9); ESTIMATED GFR > 60; GLUCOSE 77 mg/dL (70-104); GOT 24 U/L (10-30); GPT 14 U/L (10-36); MAGNESIUM 1.6 mg/dL (1.5-2.7); POTASSIUM 4.5 mmol/L (3.5-5.1); SODIUM 144 mmol/L (136-145); TCO2 26 mmol/L (25-35); TOTAL BILIRUBIN 0.33 mg/dL (0.20-1.00); TOTAL PROTEIN 4.2 g/dL (6.3-8.3)
[2019-11-03] MEDS: DUONEB (A & A) INH PRN ×4 (07:27→21:09)
--- NOTE | 2019-11-03 07:36 | PROGRESS NOTE ---
DATE: 11/03/2019 Vital Signs: Temperature 98.4 degrees, heart rate 123, respirations 20, blood pressure 108/82, and O2 saturation on high-flow nasal oxygen 95%. The patient became confused over the weekend. She is somnolent this morning. Laboratory: Hemoglobin 9.9, hematocrit 32.5, white blood count 7800 with 72.7 neutrophils. The patient should be able to go to rehab this week. Chest x-ray will be rechecked tomorrow morning. Lungs revealed some wheezing. A dose of Solu-Medrol will be given this morning. cc: Roman Goode MD
[2019-11-03] MEDS: EFFEXOR XR PO SCH (08:27)
[2019-11-03] MEDS: PREDNISONE PO SCH (08:28)
[2019-11-03] MEDS: PEPCID PO SCH (08:28)
[2019-11-03] MEDS: MOBIC PO SCH (08:29)
[2019-11-03] MEDS: COLACE PO SCH ×2 (08:29→22:46)
[2019-11-03] MEDS: KLOR-CON PO SCH ×5 (08:31→17:36)
[2019-11-03] MEDS: ROCEPHIN 1 GM in NS 50 ML IV SCH (08:33)
[2019-11-03] MEDS: MORPHINE IV PRN ×2 (08:36→11:13)
[2019-11-03] MEDS: PERIDEX MT SCH ×2 (08:37→22:46)
[2019-11-03] MEDS: SOLU-MEDROL IV SCH ×2 (11:13→18:44)
[2019-11-03] MEDS: NS 1,000 ML IV SCH (18:45)
[2019-11-04] MEDS: NS 1,000 ML IV SCH ×2 (00:09→08:05)
[2019-11-04] MEDS: OXY IR PO PRN ×3 (00:52→10:08)
[2019-11-04] MEDS: DUONEB (A & A) INH PRN ×4 (03:43→15:50)
[2019-11-04] MEDS: SOLU-MEDROL IV SCH (03:50)
[2019-11-04] MEDS ORDERED: HALDOL IV ONE (04:34)
[2019-11-04] MEDS: XARELTO PO SCH (04:59)
--- NOTE | 2019-11-04 07:51 | Diag Imaging Result Doc PS360 ---
EXAM: CHEST-PORTABLE 11/04/2019 HISTORY: pneumonia TECHNIQUE: AP portable at 0712 COMMENT: There is alveolar opacity in the inferior right upper lobe and right lower lobe. This was also present on 10/31/2019. IMPRESSION: Right upper and lower lobe pneumonia. Electronically signed by Griffin Lane 11/04/2019 7:48 AM
--- NOTE | 2019-11-04 07:53 | PROGRESS NOTE ---
DATE: 11/04/2019 OBJECTIVE: Vital signs, temperature 98 degrees, heart rate 108, respirations 24, blood pressure 156/81, and O2 saturation on high-flow nasal oxygen 97%. The patient was agitated most of the night and rested poorly. She pulled out her IV and pulled off her oxygen several times. Without oxygen, her O2 saturation drops into the 80s. She is more alert and arousable, however, with decrease in her pain medicine. Geodon p.r.n. is ordered. Chest x-ray is pending. PLAN: Continue supportive care. Palliative consult will be obtained. Hopefully, the patient will be able to go to rehab soon. Physical therapy is continued. cc: Roman Goode MD
[2019-11-04] MEDS: COLACE PO SCH (10:08)
[2019-11-04] MEDS: KLONOPIN PO SCH ×2 (10:08→15:25)
[2019-11-04] MEDS: KLOR-CON PO SCH ×3 (10:08→18:43)
[2019-11-04] MEDS: PERIDEX MT SCH (10:09)
[2019-11-04] MEDS: PEPCID PO SCH (10:09)
[2019-11-04] MEDS: EFFEXOR XR PO SCH (10:09)
[2019-11-04] MEDS: MOBIC PO SCH (10:09)
[2019-11-04] MEDS: PREDNISONE PO SCH ×2 (10:09→15:25)
[2019-11-04] MEDS: OMNICEF PO SCH (10:14)
[2019-11-04] MEDS: STERILE WATER INJ. INJ PRN (10:48)
[2019-11-04] MEDS: GEODON IM PRN (10:48)
[2019-11-04] MEDS: LASIX PO SCH (15:25)
[2019-11-05] MEDS: KLONOPIN PO SCH ×3 (00:09→15:22)
[2019-11-05] MEDS: COLACE PO SCH ×2 (00:09→09:23)
[2019-11-05] MEDS: LASIX PO SCH ×2 (00:09→09:22)
[2019-11-05] MEDS: PERIDEX MT SCH ×2 (00:10→09:23)
[2019-11-05] MEDS: PREDNISONE PO SCH ×3 (00:10→09:22)
[2019-11-05] MEDS: OMNICEF PO SCH ×2 (00:10→09:22)
[2019-11-05] MEDS: GEODON IM PRN ×3 (00:16→16:13)
[2019-11-05] MEDS: STERILE WATER INJ. INJ PRN ×2 (00:16→16:12)
[2019-11-05] MEDS: XARELTO PO SCH (05:59)
[2019-11-05] MEDS: DUONEB (A & A) INH PRN ×5 (07:43→23:21)
--- NOTE | 2019-11-05 08:23 | PROGRESS NOTE ---
DATE: 11/05/2019 OBJECTIVE: Vital Signs: Temperature 97.3 degrees, heart rate 92, respirations 19, blood pressure 143/94, and O2 saturation 100% on high-flow nasal oxygen. General: When I saw the patient this morning, she had her oxygen off and was very tachypneic and confused. It was placed back on her nose. Lungs: Reveal decreased breath sounds on the right. Abdomen: Soft. The patient is on p.o. medication including p.o. Omnicef. She had pulled out her IV several times. PLAN: Repeat chest x-ray tomorrow morning. Current therapy, including physical therapy, will be continued. cc: Roman Goode MD
--- NOTE | 2019-11-05 08:26 | EEG REPORT ---
DATE: 11/02/2019 REFERRING: DR. Laureano. ULTRA SOUND TECHNICIAN: Evi Acosta. BACKGROUND INFORMATION/TECHNIQUE: This is a digitally recorded routine EEG with video. HISTORY: This is a 79-year-old female patient with altered mental status. EEG is ordered to detect evidence of seizures. MEDICATIONS: Include oxycodone IR and morphine p.r.n. Effexor, Klonopin and Ultram. EEG FINDINGS: This is a technically limited EEG due to diffuse, mostly persistent, diffuse myogenic artifact necessitating heavy filtering. A posterior dominant alpha rhythm is not seen. The background at maximal alertness consists of theta/delta slowing with some intermixed faster frequencies. No definite persistent focal slowing. No epileptiform discharges. No seizures. Hyperventilation is not performed. Photic stimulation induces a normal driving response. No definite drowsiness. Stage II sleep is not seen. The EKG demonstrates regular RR intervals. IMPRESSION AND CLINICAL CORRELATION: Abnormal routine EEG due to moderate generalized slowing indicative of a moderate nonspecific encephalopathy. No epileptiform discharges or seizures seen on the current study. This does not rule out an underlying seizure disorder. Clinical correlation is recommended. cc: MD Koffi Plummer MD Robert Allen, MD
[2019-11-05] MEDS: MOBIC PO SCH (09:22)
[2019-11-05] MEDS: KLOR-CON PO SCH ×3 (09:22→17:02)
[2019-11-05] MEDS: PEPCID PO SCH (09:22)
[2019-11-05] MEDS: EFFEXOR XR PO SCH (09:22)
[2019-11-06] MEDS: GEODON IM PRN ×2 (03:29→22:38)
[2019-11-06] MEDS: STERILE WATER INJ. INJ PRN ×2 (03:29→22:38)
[2019-11-06] MEDS: COLACE PO SCH ×3 (03:47→21:50)
[2019-11-06] MEDS: LASIX PO SCH ×3 (03:48→21:50)
[2019-11-06] MEDS: KLONOPIN PO SCH ×4 (03:48→21:50)
[2019-11-06] MEDS: PERIDEX MT SCH ×3 (03:48→21:51)
[2019-11-06] MEDS: OMNICEF PO SCH ×3 (03:48→21:50)
[2019-11-06] MEDS: PREDNISONE PO SCH ×3 (03:48→21:50)
[2019-11-06] MEDS: DUONEB (A & A) INH PRN ×3 (03:49→15:17)
--- NOTE | 2019-11-06 06:52 | Diag Imaging Result Doc PS360 ---
CHEST-PORTABLE - 11/06/2019 INDICATION: pneumonia COMPARISON: 11/04/2019 FINDINGS: Stable left chest port. Heart size appears normal. There is stable pulmonary vascular congestion. There are diffuse bilateral interstitial infiltrates most suggestive of pulmonary edema. The focal bandlike opacity in the right midlung has resolved. There are probably small pleural effusions. IMPRESSION: Most likely congestive heart failure. Electronically signed by Danilo Camacho 11/06/2019 6:49 AM
[2019-11-06] MEDS ORDERED: ULTRAM PO PRN (07:38)
--- NOTE | 2019-11-06 09:04 | PROGRESS NOTE ---
DATE: 11/06/2019 OBJECTIVE: Vital signs stable with temperature 98.3 degrees, heart rate 89, respirations 20, blood pressure 156/81, O2 saturation 99% on high-flow nasal oxygen. Lungs revealed mild wheezing bilaterally. There is trace ankle edema. IMAGING: Chest x-ray reveals pulmonary edema and congestive heart failure. PLAN: Adjust medicines with addition of Aldactone, Imdur, and change her pain medicine from Percocet to tramadol. Attempt will be made to get her up in a chair b.i.d. today. Cardiology consult is obtained with Dr. Phoenix to assist in CHF management. cc: Roman Goode MD
[2019-11-06] MEDS: MOBIC PO SCH (09:33)
[2019-11-06] MEDS: KLOR-CON PO SCH ×3 (09:33→18:59)
[2019-11-06] MEDS: EFFEXOR XR PO SCH (09:34)
[2019-11-06] MEDS: XARELTO PO SCH (09:34)
[2019-11-06] MEDS: PEPCID PO SCH (09:34)
[2019-11-06] MEDS: IMDUR PO SCH (09:46)
[2019-11-06] MEDS: ALDACTONE PO SCH ×2 (09:46→21:50)
--- NOTE | 2019-11-06 14:43 | CARDIOLOGY CONSULTATION ---
DATE: 11/06/2019 REASON FOR CONSULTATION: Cardiology was consulted for heart failure. The patient is status post fall and fracture of the right femoral neck. She underwent surgery. HISTORY OF PRESENT ILLNESS: A 79-year-old lady with history of COPD, lymphoma, chronic respiratory failure who underwent surgery. She was admitted with a fall. She has multiple medical problems as listed below. She is slightly confused. History was obtained from the chart. Regardless, she does not complain of chest pain. She is short of breath. There are no palpitations. PAST MEDICAL HISTORY: 1. Chronic obstructive pulmonary disease, hypoxic respiratory failure. 2. Lymphoma. 3. History of DVT. 4. History of abdominal aorta aneurysm. 5. Status post cholecystectomy. 6. Osteoporosis. 7. Status post hysterectomy. 8. Removal of a mass in the left upper quadrant in the past with a low-grade lymphoma. 9. Cholecystectomy. 10. Cataract surgery. 11. Hysterectomy. REVIEW OF SYSTEMS: Review of systems could not be accurately obtained from the patient. However, she denies any chest pain at the present time. PHYSICAL EXAMINATION: Vital Signs: Blood pressure was 127/82. Heart: First and second heart sounds were heard. There was no S3 gallop. Respiratory System: Bilateral expiratory wheeze. Abdomen: Was soft, nontender. There was no guarding or rigidity. Extremities: There is tenderness at the site of her right hip surgery. ASSESSMENT AND PLAN: Ms. Jackie Arce is a 79-year-old lady with history of chronic obstructive pulmonary disease, lymphoma, respiratory failure, hyperlipidemia and history of abdominal aortic aneurysm who is admitted with a fractured hip. She is confused at the present time. Examination revealed bilateral expiratory wheeze. Chest x-ray suggestive of heart failure. She is on Lasix 40 mg twice daily. PLAN: 1. We will get a BMP. 2. We will get an echocardiogram to assess cardiac and valvular function. 3. Her BUN was 10 creatinine of 0.6. 4. Her laboratory examination on revealed a sodium of 144, potassium 4.5, BUN 24, creatinine 0.9. 5. Chest x-ray revealed normal sinus rhythm, premature atrial contractions were noted. There was no acute ST-T changes to suggest ischemia or infarction. 6. Hemoglobin and hematocrit was low. She received 1 unit of blood transfusion. Currently hemoglobin and hematocrit is stable with 9.9 and 32.5. 7. If she has left ventricular dysfunction, we will add medications accordingly after we review the echocardiogram. Thanks for the consult. We will follow hospital course. cc: MD Roman Vazquez MD
[2019-11-07] MEDS: XARELTO PO SCH (05:37)
[2019-11-07 07:23] LABS: CALCIUM 9.2 mg/dL (8.8-10.2); POTASSIUM 4.5 mmol/L (3.5-5.1)
[2019-11-07] MEDS: DUONEB (A & A) INH PRN ×2 (08:10→10:53)
--- NOTE | 2019-11-07 08:44 | ECHO REPORT ---
ORDER DATE: 11/06/2019 INTERPRETING PHYSICIAN: Dr. Howe REQUESTING PHYSICIAN: Mike and hospitalist CLINICAL INDICATIONS: -year-old with . M-MODE MEASUREMENTS: Right ventricle: cm. Left ventricle end diastole: 3.7 cm. Left ventricle end systole: 2.8 cm. Posterior wall: 0.9 cm. Interventricular septum: 0.9 cm. Left atrium: 3.9 cm. Aortic root: 2.6 cm. SUMMARY OF 2-DIMENSIONAL IMAGIN. The study is difficult. 2. Left ventricular function appears to be normal. Ejection fraction is estimated at 70%. There is no wall motion abnormality noted. 3. Mitral annulus shows moderate calcification. 4. Color flow mapping of mitral valve is unremarkable. 5. Pulse wave Doppler of mitral inflow shows reversal of the E and the A ratio. The ratio is 0.6. 6. Tissue Doppler of septal and lateral mitral annulus averages 5.5 cm. There is impaired left ventricular relaxation. 7. Aortic valve shows sclerosis of the cusps. Maximum gradient across this valve is 18 mmHg. Mean gradient is 9 mmHg. There is no evidence of any significant aortic stenosis. 8. Tricuspid valve shows moderate degree of regurgitation. 9. Pulmonary pressure is estimated at 41 mmHg. 10.Pulmonic valve appears to be unremarkable. 11.There is no pericardial effusion, mass or thrombus. 12.Left atrium is moderately enlarged. 13.The right-sided chambers appear to be grossly normal. Clinical correlation is recommended. cc: MD Dian Todd PA Robert Allen, MD
[2019-11-07] MEDS: OMNICEF PO SCH ×2 (09:26→23:54)
[2019-11-07] MEDS: KLONOPIN PO SCH ×3 (09:26→23:54)
[2019-11-07] MEDS: IMDUR PO SCH (09:27)
[2019-11-07] MEDS: PREDNISONE PO SCH ×2 (09:27→23:54)
[2019-11-07] MEDS: ALDACTONE PO SCH ×2 (09:28→23:54)
[2019-11-07] MEDS: EFFEXOR XR PO SCH (09:28)
[2019-11-07] MEDS: COLACE PO SCH ×2 (09:28→23:54)
[2019-11-07] MEDS: PEPCID PO SCH (09:29)
[2019-11-07] MEDS: PERIDEX MT SCH ×2 (09:29→23:55)
[2019-11-07] MEDS: KLOR-CON PO SCH ×3 (09:29→18:37)
[2019-11-07] MEDS: LASIX PO SCH ×2 (09:29→23:54)
[2019-11-07] MEDS: MOBIC PO SCH (09:32)
--- NOTE | 2019-11-07 11:31 | PROGRESS NOTE ---
DATE: 11/07/2019 OBJECTIVE: Vital Signs: Temperature 97.6 degrees, heart rate 87, respirations 20, blood pressure 171/95, O2 saturation 99%. The patient is more alert, but still confused. Blood pressure has been gradually going up since yesterday. LABORATORY: Sodium 140, potassium 4.5, BUN 25, creatinine 1.0, blood sugar 162, TSH 3.4. PLAN: Add losartan HCT. Cardiology consultation was obtained. An echocardiogram will be done. Hopefully, patient will continue to improve and be able to go to rehab early next week. cc: Roman Goode MD
[2019-11-07] MEDS: HYZAAR 50/12.5 MG PO SCH (18:36)
[2019-11-07] MEDS: GEODON IM PRN (18:48)
[2019-11-07] MEDS: STERILE WATER INJ. INJ PRN (18:49)
[2019-11-08] MEDS: XARELTO PO SCH (06:31)
[2019-11-08] MEDS: KLONOPIN PO SCH ×2 (09:24→15:35)
[2019-11-08] MEDS: EFFEXOR XR PO SCH (09:26)
[2019-11-08] MEDS: HYZAAR 50/12.5 MG PO SCH (09:26)
[2019-11-08] MEDS: MOBIC PO SCH (09:27)
[2019-11-08] MEDS: PREDNISONE PO SCH (09:28)
[2019-11-08] MEDS: IMDUR PO SCH (09:28)
[2019-11-08] MEDS: LASIX PO SCH (09:28)
[2019-11-08] MEDS: ALDACTONE PO SCH (09:29)
[2019-11-08] MEDS: COLACE PO SCH (09:29)
[2019-11-08] MEDS: OMNICEF PO SCH (09:29)
[2019-11-08] MEDS: PEPCID PO SCH (09:29)
[2019-11-08] MEDS: KLOR-CON PO SCH ×2 (09:29→15:35)
[2019-11-08] MEDS: PERIDEX MT SCH (11:24)
--- NOTE | 2019-11-08 13:52 | PROGRESS NOTE ---
DATE: 11/08/2019 VITAL SIGNS: Stable with temperature 97.4 degrees, heart rate 96, respirations 20, blood pressure 152/106, O2 saturation 100% on high-flow nasal oxygen. Patient is more alert and less confused this morning. I and O indicates negative fluid balance over the past several days. PLAN: Repeat chest x-ray and BMP tomorrow morning. She complains with back pain. Physical therapy has assisted standing at bedside. She will need rehab for strengthening. Hopefully, she can be discharged early next week. cc: Roman Goode MD
[2019-11-08] MEDS: ROBAXIN PO SCH ×2 (16:38→16:52)
[2019-11-09] MEDS: LASIX PO SCH ×3 (01:05→21:46)
[2019-11-09] MEDS: PERIDEX MT SCH ×3 (01:05→21:46)
[2019-11-09] MEDS: ALDACTONE PO SCH ×3 (01:05→21:45)
[2019-11-09] MEDS: OMNICEF PO SCH ×3 (01:05→21:46)
[2019-11-09] MEDS: PREDNISONE PO SCH ×3 (01:05→21:45)
[2019-11-09] MEDS: COLACE PO SCH ×3 (01:05→21:45)
[2019-11-09] MEDS: KLONOPIN PO SCH ×4 (01:08→21:46)
[2019-11-09] MEDS: KLOR-CON PO SCH ×4 (01:08→17:13)
--- NOTE | 2019-11-09 07:11 | Diag Imaging Result Doc PS360 ---
EXAM: CHEST-PORTABLE 11/09/2019 HISTORY: CHF, pneumonia TECHNIQUE: AP portable at 0602 COMMENT: There is alveolar opacity just above the minor fissure in the right upper lobe. Compared to 11/06/2019 the opacification of the right base has nearly resolved. IMPRESSION: Improved pulmonary edema. Right upper lobe pneumonia. Electronically signed by Griffin Lane 11/09/2019 7:09 AM
[2019-11-09 07:47] LABS: CALCIUM 9.5 mg/dL (8.8-10.2); CREATININE 1.5 mg/dL (0.5-0.9)
[2019-11-09] MEDS: XARELTO PO SCH (08:08)
[2019-11-09] MEDS: PEPCID PO SCH (08:48)
[2019-11-09] MEDS: MOBIC PO SCH (08:49)
[2019-11-09] MEDS: EFFEXOR XR PO SCH (08:50)
[2019-11-09] MEDS: IMDUR PO SCH (08:50)
[2019-11-09] MEDS: HYZAAR 50/12.5 MG PO SCH (08:53)
[2019-11-09] MEDS: ROBAXIN PO SCH ×3 (08:56→17:14)
--- NOTE | 2019-11-09 09:17 | PROGRESS NOTE ---
DATE: 11/09/2019 VITAL SIGNS: Temperature 97.7 degrees, heart rate 100, respirations 22, blood pressure 132/72, O2 saturation 100% on high-flow nasal oxygen. LABORATORY: Sodium 142, potassium 4.0, BUN 31, creatinine 1.5. OBJECTIVE: Chest: Chest is clear to auscultation. DIAGNOSTIC DATA: Chest x-ray: Improved pulmonary edema, persistent mild right upper lobe pneumonia. PLAN: Continue p.o. Omnicef. Her confusion is improving. She is more alert. Hopefully, she can go to rehab early this week. cc: Roman Goode MD
[2019-11-10] MEDS: GEODON IM PRN (01:31)
[2019-11-10] MEDS: STERILE WATER INJ. INJ PRN (01:31)
[2019-11-10] MEDS: XARELTO PO SCH (07:21)
[2019-11-10] MEDS: DUONEB (A & A) INH PRN (08:15)
[2019-11-10] MEDS: HYZAAR 50/12.5 MG PO SCH (09:51)
[2019-11-10] MEDS: ROBAXIN PO SCH ×3 (09:51→17:05)
[2019-11-10] MEDS: MOBIC PO SCH (09:51)
[2019-11-10] MEDS: EFFEXOR XR PO SCH (09:52)
[2019-11-10] MEDS: KLONOPIN PO SCH ×4 (09:52→23:09)
[2019-11-10] MEDS: OMNICEF PO SCH ×3 (09:52→23:10)
[2019-11-10] MEDS: ALDACTONE PO SCH ×3 (09:52→23:09)
[2019-11-10] MEDS: IMDUR PO SCH (09:52)
[2019-11-10] MEDS: COLACE PO SCH ×3 (09:52→23:09)
[2019-11-10] MEDS: KLOR-CON PO SCH ×3 (09:52→17:05)
[2019-11-10] MEDS: PEPCID PO SCH (09:52)
[2019-11-10] MEDS: PREDNISONE PO SCH ×3 (09:52→23:09)
[2019-11-10] MEDS: LASIX PO SCH ×3 (09:53→23:09)
[2019-11-10] MEDS: PERIDEX MT SCH ×4 (09:53→23:10)
[2019-11-11] MEDS: XARELTO PO SCH ×2 (05:39→05:43)
--- NOTE | 2019-11-11 08:55 | DISCHARGE SUMMARY ---
ADMISSION DATE: 10/26/2019 DISCHARGE DATE: 11/11/2019 FINAL DIAGNOSES: 1. Fracture of right hip due to a fall. 2. Congestive heart failure, acute and chronic systolic. 3. Pulmonary edema. 4. Peripheral edema. 5. Severe chronic obstructive pulmonary disease. 6. Metabolic encephalopathy. 7. Senile dementia. DISPOSITION: To rehab for strengthening and progressive ambulation. HISTORY OF PRESENT ILLNESS: The patient is a 79-year-old, white female who fell at home and presented to the hospital with right hip fracture. This was repaired by Dr. Nicholson on 10/27. She had no complications postop with her hip, but had congestive heart failure and pulmonary edema on admission, which slowly improved. She required high-flow nasal oxygen for a couple of weeks. She has improved over the past few days and yesterday and today is not using oxygen. Her O2 saturation on room air is 92%. There was elevation of BUN and creatinine, but improvement over the past few days. Last CBC on 11/03 revealed hemoglobin 9.9, hematocrit 32.5. BUN and creatinine on 11/09/2019 were 31 and 1.5 respectively. Potassium was 4.0. ProBNP on 11/06 was 7648. TSH was normal at 3.4. She has had moderate confusion since admission, but is improved over the last couple of days. She is more alert, and lungs have cleared. There was a possibility of pneumonia and she initially was placed on Rocephin, then changed to Omnicef b.i.d. This is discontinued today. She is transferred to retirement by ambulance today for continued care. cc: Roman Goode MD
[2019-11-11] MEDS: PERIDEX MT SCH (10:07)
[2019-11-11] MEDS: PEPCID PO SCH (10:08)
[2019-11-11] MEDS: IMDUR PO SCH (10:08)
[2019-11-11] MEDS: OMNICEF PO SCH (10:08)
[2019-11-11] MEDS: ROBAXIN PO SCH (10:09)
[2019-11-11] MEDS: ALDACTONE PO SCH (10:09)
[2019-11-11] MEDS: KLOR-CON PO SCH (10:09)
[2019-11-11] MEDS: EFFEXOR XR PO SCH (10:10)
[2019-11-11] MEDS: KLONOPIN PO SCH (10:10)
[2019-11-11] MEDS: LASIX PO SCH (10:10)
[2019-11-11] MEDS: MOBIC PO SCH (10:11)
[2019-11-11] MEDS: PREDNISONE PO SCH (10:11)
[2019-11-11] MEDS: HYZAAR 50/12.5 MG PO SCH (10:11)
[2019-11-11] MEDS: COLACE PO SCH (10:11)
[2019-11-11 12:23] VITALS: BP 107/77
== END 2019-11-11 13:08 | DRG 469 ==
LOC: ED 20:46 → SUATTDRO 10-26 03:00 → 4N 10-26 03:00
PROVIDERS: ADMIT Family Medicine; ATTEND Family Medicine

== ENCOUNTER 2019-11-13 11:23 | Inpatient (IN) ==
--- NOTE | 2019-11-13 11:51 | Diag Imaging Result Doc PS360 ---
EXAM: CT HEAD W/O CONTRAST HISTORY: stroke like symptoms TECHNIQUE: CT head without contrast COMPARISON: 10/25/2019 FINDINGS: No parenchymal hemorrhage. No epidural or subdural hematoma. No subarachnoid hemorrhage. There is atrophy with chronic microvascular ischemic changes. No mass identified on this noncontrasted exam. No hydrocephalus. No sinus opacification. IMPRESSION: 1.No hemorrhage. 2.Atrophy with chronic microvascular ischemic changes This exam was performed using automated exposure control, adjustment of mA or kV according to patient size, and/or use of iterative reconstruction technique. Electronically signed by Srikanth Sheikh 11/13/2019 11:48 AM
--- NOTE | 2019-11-13 12:13 | Diag Imaging Result Doc PS360 ---
EXAM: CHEST-PORTABLE 11/13/2019 HISTORY: hypoxemia TECHNIQUE: AP upright portable at 1203 COMMENT: There is ill-defined opacity in the right upper lobe which was also present on 11/09/2019 and which has definitely improved since 11/06/2019. The heart size and pulmonary vascularity are within normal limits. IMPRESSION: Improving right upper lobe pneumonia. Electronically signed by Griffin Lane 11/13/2019 12:11 PM
[2019-11-13 12:50] LABS: BLOOD TYPE ARTERIAL; SAMPLE BLOOD
[2019-11-13 12:51] LABS: ALLEN TEST NO; HCO3-(ACT) 29.5 mmoll (20.0-26.0); METHB 1.5 % (0.0-1.5); O2(CT) 19.6 mL/dL (15.0-23.0); O2HB 94.7 % (95.0-99.0); PCO2(98.6) 49 mmHg (35-45); PO2(98.6) 95 mmHg (60-100); SAO2 98.4 % (95.0-100.0); THB 14.7 g/dL (11.5-17.4); pH(98.6) 7.42 (7.35-7.45)
[2019-11-13 12:53] LABS: MODALITY CANNULA
[2019-11-13 12:56] LABS: URINE SOURCE CATH
[2019-11-13 12:59] LABS: BILIRUBIN URINE NEGATIVE (NEGATIVE); BLOOD URINE TRACE (NEGATIVE); COLOR YELLOW; GLUCOSE URINE NEGATIVE (NEGATIVE); KETONE URINE NEGATIVE (NEGATIVE); LEUKOCYTES URINE MODERATE (NEGATIVE); NITRITE URINE NEGATIVE (NEGATIVE); PROTEIN URINE TRACE mg/dL (NEGATIVE); SP GRAVITY URINE 1.012; TURBIDITY URINE CLEAR (CLEAR); UROBILINOGEN URINE NORMAL (NORMAL)
[2019-11-13 13:12] LABS: UR EPITHELIAL CELLS <10 /HPF (<10); URINE BACTERIA NEGATIVE /HPF; URINE RBC <10 /HPF (<10); URINE WBC 20-40 /HPF (<10)
[2019-11-13 13:20] LABS: URINE YEAST PRESENT
[2019-11-13 13:22] LABS: EOS# 0.01 X1000 (0.0-0.7); HEMATOCRIT 46.8 % (37.0-47.0); HEMOGLOBIN 14.5 g/dL (12.0-16.0); LYMPH# 1.91 X1000 (1.2-3.4); LYMPH% 5.6 % (20.5-51.1); MCH 29.3 PG (27-31); MCV 94.5 FL (81-99); MONO# 1.54 X1000 (0.11-0.59); MONO% 4.5 % (1.7-9.3); MPV 12.1 FL (7.4-10.4); PLT 328 X1000 (130-400); RBC 4.95 XMIL (4.2-5.4); RDW 15.2 % (11.5-14.5); WBC 33.85 X1000 (4.8-10.8)
[2019-11-13 13:30] LABS: INR 1.42; PROTIME 17.6 Seconds (11.0-16.0); PTT 23.7 Seconds (22.3-41.8)
--- NOTE | 2019-11-13 13:33 | EKG Report ---
Test Performed on : 11/13/2019 11:36:50 AM Test Reason : altered, ? CVA Blood Pressure : / mmHG Vent. Rate : 112 BPM Atrial Rate : 112 BPM P-R Int : 116 ms QRS Dur : 078 ms QT Int : 318 ms P-R-T Axes : 073 060 074 degrees QTc Int : 434 ms Sinus tachycardia. Right atrial enlargement Borderline ECG When compared with ECG of 25-OCT-2019 22:45, (Unconfirmed) premature supraventricular complexes. are no longer present Unconfirmed Result
[2019-11-13 13:36] LABS: BANDS 1 % (0-1); LYMPHS 4 % (21-51); MONO 4 % (1-9); SEGS 91 % (42-75)
[2019-11-13 14:26] LABS: UR AMPHETAMINES QUAL NONE DETECTED (NONE DETECT); UR BARBITUATES QUAL NONE DETECTED (NONE DETECT); UR BENZODIAZEPIN QUAL NONE DETECTED (NONE DETECT); UR CANNABINOIDS QUAL NONE DETECTED (NONE DETECT); UR COCAINE QUAL NONE DETECTED (NONE DETECT); UR METHADONE QUAL NONE DETECTED (NONE DETECT); UR OPIATES QUAL NONE DETECTED (NONE DETECT); UR OXYCODONE QUAL NONE DETECTED (NONE DETECT); UR PCP QUAL NONE DETECTED (NONE DETECT)
[2019-11-13 14:50] LABS: ALB/GLOB RATIO 1.4; ALBUMIN 3.3 g/dL (3.5-5.0); CALCIUM 9.7 mg/dL (8.8-10.2); CREATININE 3.9 mg/dL (0.5-0.9); POTASSIUM 5.7 mmol/L (3.5-5.1); TOTAL BILIRUBIN 0.49 mg/dL (0.20-1.00); TOTAL PROTEIN 5.7 g/dL (6.3-8.3)
[2019-11-13] MEDS ORDERED: ZOSYN 3.375 GM in NS 50 ML IV ONE (15:28)
[2019-11-13] MEDS ORDERED: LEVAQUIN 750 MG/D5W 750 MG/150 ML IVPB IV ONE (15:31)
[2019-11-13] MEDS ORDERED: NS 1,000 ML IV ONE ×2 (15:32→15:39)
[2019-11-13] MEDS ORDERED: CALCIUM CHLORIDE 1 GM in NS 100 ML IV ONE (15:38)
--- NOTE | 2019-11-13 17:40 | PROVIDER DOCUMENTATION ---
This chart was entered by Miriam Pizano Scribe, acting as scribe for Travis Cruz MD. HPI-Neurological Disorder - General Chief Complaint: Stroke-Like Symptoms Stated Complaint: STROKE LIKE SYMPTOMS Time Seen by Provider: 11/13/19 11:30 Source: EMS Allergies/Adverse Reactions: Patient Allergies Allergy/AdvReac Type Severity Reaction Status Date / Time codeine [Codeine] Allergy RASH Verified 10/25/19 21:54 hydrocodone bitartrate * Allergy VOMITING Verified 10/25/19 21:54 [From Lortab] Penicillins Allergy SWELLING Verified 10/25/19 21:54 Sulfa (Sulfonamide Allergy ITCHING Verified 10/25/19 21:54 Antibiotics) [Sulfa(Sulfonamide Antibiotics)] Home Medications: Home Medication List Medication Instructions Recorded Confirmed Last Taken Type Albuterol 2.5MG/Ipratrop 0.5MG 3 ml INH [id number] neb 04/03/19 10/25/19 Unknown Rx [Duoneb (A & A)] Prednisone 10 mg PO DAILY 09/18/19 10/25/19 Unknown History Clonazepam [Klonopin] 0.5 mg PO TID 10/25/19 10/25/19 Unknown History Albuterol 2.5MG/Ipratrop 0.5MG 3 ml INH Q4H PRN PRN neb 11/11/19 Unknown Rx [Duoneb (A & A)] Chlorhexidine Gluconate [Peridex] 15 ml MT BID udc 11/11/19 Unknown Rx Dimethicone/Oxybenzone [place] 1 applicatn TOP PRN PRN stick 11/11/19 Unknown Rx [Blistex Medicated [place] Lip [place]] Docusate Sodium [Colace] 100 mg PO BID cap 11/11/19 Unknown Rx Famotidine [Pepcid] 20 mg PO DAILY tab 11/11/19 Unknown Rx Furosemide [Lasix] 40 mg PO Q12HR tab 11/11/19 Unknown Rx Isosorbide Mononitrate E.r. [Imdur] 30 mg PO DAILY tab 11/11/19 Unknown Rx Losartan/Hctz [Hyzaar 50/12.5 mg] 1 ea PO DAILY tab 11/11/19 Unknown Rx Meloxicam [Mobic] 15 mg PO DAILY tab 11/11/19 Unknown Rx Methocarbamol [Robaxin] 500 mg PO TID tab 11/11/19 Unknown Rx Potassium Chloride E.r. [Klor-Con] 10 meq PO TID tab 11/11/19 Unknown Rx Rivaroxaban [Xarelto] 10 mg PO Q24H tab 11/11/19 Unknown Rx Spironolactone [Aldactone] 25 mg PO BID tab 11/11/19 Unknown Rx Tramadol [Ultram] 50 mg PO Q6H PRN PRN tab 11/11/19 Unknown Rx Ziprasidone HCl [Geodon] 10 mg IM Q4H PRN PRN cap 11/11/19 Unknown Rx - History of Present Illness-Neuro Nature of Presenting Problem: Patient is a 79 year old female who presents to the ED via EMS with stroke like symptoms. EMS states family found the patient unresponsive and the patient's O2 sat was in the 80%. EMS reports patient having right side weakness and not following commands. Severity: reports: mild Onset/Duration: reports: unsure Timing: reports: still present, improving Context: reports: found unresponsive by family, other (AMS and weakness to right side) Character of Altered Mental Status: reports: unresponsive Character of Deficits: reports: new weakness New weakness or altered sensation location:: reports: RUE Similar Symptoms Previously?: No Recently seen or treated by another doctor?: No Review of Systems - Adult - REVIEW OF SYSTEMS - ADULT ROS:: unobtainable per condition Constitutional: reports: no symptoms reported Eyes: reports: no symptoms reported Ears, Nose, Mouth & Throat: reports: no symptoms reported Cardiovascular: reports: no symptoms reported Respiratory: reports: no symptoms reported Gastrointestinal: reports: no symptoms reported Genitourinary: reports: no symptoms reported Musculoskeletal: reports: no symptoms reported Integumentary: reports: no symptoms reported Neurological: reports: no symptoms reported Psychiatric: reports: no symptoms reported Endocrine: reports: no symptoms reported Hematologic/Lymphatic: reports: no symptoms reported Allergic/Immunologic: reports: no symptoms reported All Other Systems: Reviewed and Negative Past History - Adult - PAST MEDICAL HISTORY-ADULT Review of Records: reports: Old Records Reviewed, Nursing Assessment Review, Medications Reviewed, Social history reviewed & non-contributory. Major Childhood Illnesses: reports: denies history Cardiovascular: reports: CHF, HTN Respiratory: reports: asthma, COPD Gastrointestinal: reports: denies history Obstetrical/Gynecological: reports: denies history Genitourinary: reports: denies history Musculoskeletal: reports: denies history Neurological: reports: denies history Psychiatric: reports: denies history Endocrine/Immune: reports: Lymphoma Other Conditions: reports: denies history - PRIOR SURGERIES/PROCEDURES Surgical/Procedure History: reports: hysterectomy, other - PRIOR HOSPITALIZATIONS Prior Hospitalizations: reports: for other non-related - IMMUNIZATION STATUS Childhood Immunizations: See Nurse Assessment Flu Vaccine: See Nurse Assessment - FAMILY HISTORY Family History: reviewed, not pertinent - SOCIAL HISTORY Smoking: cigarettes (former) Substance Use: denies Living Situation: care facility (SNF) Physical Exam- Neurological - Physical Exam-Neuro Initial Vital Signs Reviewed: Yes General Appearance: no apparent distress, other (unresponsive) Eye Exam: bilateral eye: other (pupils reactive. conjugate gaze. ) Head Injury: no evidence of injury Respiratory: chest non-tender, crackles (bilateral). negative: respiratory distress, increased rate Cardiovascular: regular rate, rhythm. negative: tachycardia, systolic murmur Abdominal Exam: normal bowel sounds, non tender, soft. negative: guarding record tabulating clerk Exam: other (unable to assess per patient's condition) Coordination/Gait: other (unable to assess per patient's condition) Neurologic: motor weakness (generalized) Integumentary: normal color, normal turgor, warm/dry. negative: cyanosis, pallor Psych/Mental Status: other (unresponsive) Progress - PLAN OF CARE/RESULTS Progress/Plan/Lab Results: Vital Signs - 8 hr 11/13/19 11:45 Temperature 97 F L Pulse Rate 120 H Respiratory Rate 20 Blood Pressure 130/85 O2 Sat by Pulse Oximetry 100 Laboratory Results - last 24 hr 11/13/19 11/13/19 11/13/19 12:20 12:20 12:42 WBC RBC Hgb Hct MCV MCH MCHC RDW Std Deviation Plt Count MPV Neut % (Auto) Lymph % (Auto) [place] % (Auto) Eos % (Auto) Baso % (Auto) Neut # (Auto) Lymph # (Auto) [place] # (Auto) Eos # (Auto) Baso # (Auto) Segmented Neutrophils Band Neutrophils Lymphocytes Monocytes PT INR PTT (Actin FS) Specimen Type ARTERIAL Sample Site R BRACHIAL pH 7.42 pCO2 49 H pO2 95 HCO3 29.5 H Base Excess 6.0 H Oxyhemoglobin 94.7 L ABG O2 Sat (Calculated) 19.6 ABG O2 Saturation 98.4 ABG Carboxyhemoglobin 2.30 ABG Methemoglobin 1.5 Russel Test NO A-a O2 Difference 43.0 Total Hemoglobin 14.7 Lactate 2.50 H Liter Flow 2.0 Blood Gas Modality CANNULA FiO2 % 28.0 Sodium Potassium Chloride Carbon Dioxide Anion Gap BUN Creatinine Estimated GFR/1.73 m2 BUN/Creatinine Ratio Glucose Calculated Osmolality Calcium Total Bilirubin AST ALT Alkaline Phosphatase Creatine Kinase Troponin T High Sens Total Protein Albumin Globulin Albumin/Globulin Ratio Plasma Lactate Urine Source CATH Urine Color YELLOW Urine Turbidity CLEAR Urine pH 6.0 Ur Specific [place] 1.012 Urine Protein TRACE A Ur Glucose (Stick) NEGATIVE Ur Ketones (Stick) NEGATIVE Urine Blood TRACE A Urine Nitrite NEGATIVE Urine Bilirubin NEGATIVE Urobilinogen Dipstick NORMAL Urine Leukocytes MODERATE A Urine WBC (Auto) 20-40 A Urine RBC (Auto) <10 U Epithel Cells (Auto) <10 Urine Bacteria (Auto) NEGATIVE Urine Crystals Not Reportable Small Round Cells Not Reportable Urine Casts Not Reportable Urine Yeast-like Cells PRESENT Urine Opiates Screen NONE DETECTED Ur Oxycodone Screen NONE DETECTED Ur Methadone, Qual NONE DETECTED Ur Barbiturates Screen NONE DETECTED Ur Phencyclidine Scrn NONE DETECTED Ur Amphetamines Screen NONE DETECTED U Benzodiazepines Scrn NONE DETECTED Urine Cocaine Screen NONE DETECTED U Cannabinoids Screen NONE DETECTED Plasma/Serum Ethyl Alc 11/13/19 11/13/19 11/13/19 13:09 13:09 13:09 WBC 33.85 H RBC 4.95 Hgb 14.5 Hct 46.8 MCV 94.5 MCH 29.3 MCHC 31.0 L RDW Std Deviation 15.2 H Plt Count 328 MPV 12.1 H Neut % (Auto) Not Reportable Lymph % (Auto) 5.6 L [place]rell % (Auto) 4.5 Eos % (Auto) 0.0 Baso % (Auto) Not Reportable Neut # (Auto) Not Reportable Lymph # (Auto) 1.91 Tyrrell # (Auto) 1.54 H Eos # (Auto) 0.01 Baso # (Auto) Not Reportable Segmented Neutrophils 91 H Band Neutrophils 1 Lymphocytes 4 L Monocytes 4 PT INR PTT (Actin FS) Specimen Type Sample Site pH pCO2 pO2 HCO3 Base Excess Oxyhemoglobin ABG O2 Sat (Calculated) ABG O2 Saturation ABG Carboxyhemoglobin ABG Methemoglobin Russel Test A-a O2 Difference Total Hemoglobin Lactate Liter Flow Blood Gas Modality FiO2 % Sodium 142 Potassium 5.7 H Chloride 96 L Carbon Dioxide 27 Anion Gap 19 BUN 81 H Creatinine 3.9 H Estimated GFR/1.73 m2 11 BUN/Creatinine Ratio 21 Glucose 237 H Calculated Osmolality 315 Calcium 9.7 Total Bilirubin 0.49 AST 39 H ALT 31 Alkaline Phosphatase 89 Creatine Kinase 12 L Troponin T High Sens Total Protein 5.7 L Albumin 3.3 L Globulin 2.4 Albumin/Globulin Ratio 1.4 Plasma Lactate Urine Source Urine Color Urine Turbidity Urine pH Ur Specific [place] Urine Protein Ur Glucose (Stick) Ur Ketones (Stick) Urine Blood Urine Nitrite Urine Bilirubin Urobilinogen Dipstick Urine Leukocytes Urine WBC (Auto) Urine RBC (Auto) U Epithel Cells (Auto) Urine Bacteria (Auto) Urine Crystals Small Round Cells Urine Casts Urine Yeast-like Cells Urine Opiates Screen Ur Oxycodone Screen Ur Methadone, Qual Ur Barbiturates Screen Ur Phencyclidine Scrn Ur Amphetamines Screen U Benzodiazepines Scrn Urine Cocaine Screen U Cannabinoids Screen Plasma/Serum Ethyl Alc 11/13/19 11/13/19 11/13/19 13:09 13:09 14:50 WBC RBC Hgb Hct MCV MCH MCHC RDW Std Deviation Plt Count MPV Neut % (Auto) Lymph % (Auto) [place] % (Auto) Eos % (Auto) Baso % (Auto) Neut # (Auto) Lymph # (Auto) [place] # (Auto) Eos # (Auto) Baso # (Auto) Segmented Neutrophils Band Neutrophils Lymphocytes Monocytes PT 17.6 H INR 1.42 PTT (Actin FS) 23.7 Specimen Type Sample Site pH pCO2 pO2 HCO3 Base Excess Oxyhemoglobin ABG O2 Sat (Calculated) ABG O2 Saturation ABG Carboxyhemoglobin ABG Methemoglobin Russel Test A-a O2 Difference Total Hemoglobin Lactate Liter Flow Blood Gas Modality FiO2 % Sodium Potassium Chloride Carbon Dioxide Anion Gap BUN Creatinine Estimated GFR/1.73 m2 BUN/Creatinine Ratio Glucose Calculated Osmolality Calcium Total Bilirubin AST ALT Alkaline Phosphatase Creatine Kinase Troponin T High Sens 175 H* Total Protein Albumin Globulin Albumin/Globulin Ratio Plasma Lactate 1.5 Urine Source Urine Color Urine Turbidity Urine pH Ur Specific [place] Urine Protein Ur Glucose (Stick) Ur Ketones (Stick) Urine Blood Urine Nitrite Urine Bilirubin Urobilinogen Dipstick Urine Leukocytes Urine WBC (Auto) Urine RBC (Auto) U Epithel Cells (Auto) Urine Bacteria (Auto) Urine Crystals Small Round Cells Urine Casts Urine Yeast-like Cells Urine Opiates Screen Ur Oxycodone Screen Ur Methadone, Qual Ur Barbiturates Screen Ur Phencyclidine Scrn Ur Amphetamines Screen U Benzodiazepines Scrn Urine Cocaine Screen U Cannabinoids Screen Plasma/Serum Ethyl Alc Orders Category Date Time Status Cardiac Monitoring DIRECTED Care 11/13/19 11:50 Active Oxygen Therapy- ED Nursing DIRECTED Care 11/13/19 11:50 Active Saline Loc NOW Care 11/13/19 11:50 Active CHEST-PORTABLE [RAD] Stat Exams 11/13/19 11:[address] HEAD W/O CONTRAST [CT] Stat Exams 11/13/19 11:23 Completed ABG [RESP] Routine Lab 11/13/19 12:42 Completed ALCOHOL BLOOD Stat Lab 11/13/19 13:09 Completed BLOOD CULTURE [BLDCUL] Stat Lab 11/13/19 14:45 Results CBC WITH ELECTRONIC DIFF [HEME] Stat Lab 11/13/19 13:09 Completed CK PROFILE [SP CHEM] Stat Lab 11/13/19 13:09 Completed COMPREHENSIVE METABOLIC PANEL [CHEM] Stat Lab 11/13/19 13:09 Completed LACTATE, PLASMA [CHEM] Stat Lab 11/13/19 14:50 Completed PROTIME WITH INR [COAG] Stat Lab 11/13/19 13:09 Completed PTT [COAG] Stat Lab 11/13/19 13:09 Completed TROPONIN T HIGH SENSITIVITY Stat Lab 11/13/19 13:09 Completed URINALYSIS [URINALYSIS] Stat Lab 11/13/19 12:20 Completed URINE DRUG SCREEN Stat Lab 11/13/19 12:20 Completed URINE MANUAL MICROSCOPIC [URINALYSIS] Stat Lab 11/13/19 12:20 Completed 0.9% Sodium Chloride Inj [Ns] 1,000 ml Med 11/13/19 15:32 Discontinued IV 999 mls/hr 0.9% Sodium Chloride Inj [Ns] 1,000 ml Med 11/13/19 15:39 Active IV 999 mls/hr Calcium Chloride 1 gm Med 11/13/19 15:38 Active 0.9% Sodium Chloride Inj [Ns] 100 ml IV NOW Levofloxacin 750 mg/D5w [Levaquin 750 mg/D5w] Med 11/13/19 15:31 Active 750 mg in 150 ml IV NOW Piperacillin/Tazobactam [Zosyn] 3.375 gm Med 11/13/19 15:28 Discontinued 0.9% Sodium Chloride Inj [Ns] 50 ml IV NOW Altered Mental Status Stat Oth 11/13/19 11:50 Ordered EKG [EKG] Stat Ther 11/13/19 11:50 Draft Result Diagrams: 11/13/19 13:09 11/13/19 13:09 - EKG 1 Time of EKG reading by physician:: 11:36 EKG Read and Signed by:: Travis Cruz EKG Interpretation (*Must complete 3 of following elements*): Abnormal Rate: 112 Rhythm: sinus tachycardia [place]: normal NM Interval: normal Comments: right atrial enlargement - XRAY 1 XRAY Study: Chest Impression: See EMR Report (Signed EXAM: CHEST-PORTABLE 11/13/2019 HISTORY: hypoxemia TECHNIQUE: AP upright portable at 1203 COMMENT: There is ill-defined opacity in the right upper lobe which was also present on 11/09/2019 and which has definitely improved since 11/06/2019. The heart size and pulmonary vascularity are within normal limits. IMPRESSION: Improving right upper lobe pneumonia. Electronically signed by Griffin Lane 11/13/2019 12:11 PM 11/13/19 1211 Interpreting Physician: Griffin Lane MD Dictated Date/Time: 11/13/19 1210 cc: Travis Cruz MD; Roman Goode MD) - CT/MRI 1 CT Study: Head Impression: See EMR Report ( EXAM: CT HEAD W/O CONTRAST HISTORY: stroke like symptoms TECHNIQUE: CT head without contrast COMPARISON: 10/25/2019 FINDINGS: No parenchymal hemorrhage. No epidural or subdural hematoma. No subarachnoid hemorrhage. There is atrophy with chronic microvascular ischemic changes. No mass identified on this noncontrasted exam. No hydrocephalus. No sinus opacification. IMPRESSION: 1.No hemorrhage. 2.Atrophy with chronic microvascular ischemic changes This exam was performed using automated expo sure control, adjustment of mA or kV according to patient size, and/or use of iterative reconstruction technique. Electronically signed by Srikanth Sheikh 11/13/2019 11:48 AM 11/13/19 1148 Interpreting Physician: Srikanth Sheikh MD Dictated Date/Time: 11/13/19 1144 cc: Travis Cruz MD; Roman Goode MD) - CONSULTS/PCP/HOSPITALIST Notification #1 *Consult/PCP/Hospitalist*: Dr. Goode paged at 153 Time Discussed: 16:27 Reason/Comments: Dr. Cruz consulted with Dr. Goode about patient. Consult Disposition: Admit Departure - Departure Date of Disposition Decision: 11/13/19 Time of Disposition Decision: 16:20 DIAGNOSIS: AMY (acute kidney injury), UTI (urinary tract infection), Sepsis Disposition: ADMITTED INPATIENT 09 Certified Medical Emergency: Emergent Condition: Stable Referrals and Follow-Ups: Roman Goode MD [Primary Care Provider] - - Critical Care Note This patient required my direct & personal management of CC.: Yes Total Time (mins): 37 Critical Care Statement: This patient required my direct personal management to treat or rule out processes, the absence of which, could potentiallly result in sudden, clinically significant life or limb threatening deterioration. Attestation - Physician/ SCOTT Attestation The physician spent face to face time with patient:: Yes Advanced Practice Provider documentation review:: Supervising physician onsite and consulted in the evaluation and care of this patient. The physician did have a face to face encounter with the patient. This chart was documented by the indicated scribe, (Miriam Pizano, [place]) and accurately reflects the services I performed and decisions made by me, Travis Cruz MD, as attested by the provider's signature.
[2019-11-13] MEDS: D5 NS 1,000 ML IV SCH (22:42)
[2019-11-13] MEDS: DUONEB (A & A) INH PRN (23:39)
[2019-11-14] MEDS: DUONEB (A & A) INH PRN ×2 (03:21→08:34)
--- NOTE | 2019-11-14 04:45 | HISTORY AND PHYSICAL ---
CHIEF COMPLAINT: Stroke-like episode with unresponsiveness and decrease in movement of extremities. HISTORY OF PRESENT ILLNESS: This is the 2nd recent admission for this 79-year-old, white female who was admitted with fracture of the right hip, pulmonary edema, congestive heart failure, urinary tract infection, pneumonia, metabolic encephalopathy, who was transferred to rehab 2 days ago. She, apparently, did not eat while there and progressively became less responsive until she could not be aroused this afternoon. She was brought to the emergency room, where laboratory and x-rays were done. Chest x-ray showed improving right upper lobe pneumonia. CT of her head revealed no hemorrhage. There was atrophy with chronic microvascular ischemic change. White blood count was elevated at 33,000. Urinalysis revealed pyuria. Potassium was 5.7. Troponin high at 175. Plasma lactate 1.5, BUN 81, creatinine 3.9. BUN and creatinine just prior to discharge on 11/11, done 11/09 revealed BUN to be 31 and 1.5 respectively. Potassium was 4.0. She is admitted to intensive care unit to rule out acute PA, for hydration and for further evaluation. It is most likely that she has metabolic encephalopathy related to urinary tract infection. Cultures were done in the emergency room. While in the hospital over the past couple of weeks, she was on Rocephin then changed to Omnicef when she removed her IVs. There has been difficulty over the past few months controlling her confusion. She has not attempted to get out of bed. She had a hip fracture on the right resulting in hospitalization 10/26/2019. While in the hospital, she had cardiac evaluation by Dr. Phoenix. Echocardiogram was done and revealed ejection fraction 70%, no decrease in wall motion of the left ventricle, and pulmonary pressure of 41 mmHg. There is history of severe COPD. She was on high-flow nasal oxygen for a couple of weeks in the hospital, then suddenly improved and went to rehab on p.r.n. oxygen per nasal cannula. PAST SURGERY HISTORY: Right hip repair by Dr. Nicholson 10/27/2019. PRESENT MEDICATION: Albuterol and Atrovent q.4 hours p.r.n., Klonopin 0.5 mg t.i.d., docusate sodium 1 b.i.d., Pepcid 20 mg daily, furosemide 40 mg b.i.d., isosorbide mononitrate 30 mg p.o. daily. ALLERGIES: Codeine, hydrocodone, and penicillin. PHYSICAL EXAMINATION: VITAL SIGNS: Temperature 97 degrees, heart rate 120, respirations 20, blood pressure 130/85, O2 saturation 100% on 4 L nasal oxygen. HEART: Regular in rate and rhythm with no murmur, rub or gallop. LUNGS: Clear with no rales or rhonchi. ABDOMEN: Soft with no mass, tenderness, or organomegaly. EXTREMITIES: No cyanosis, clubbing, or edema. NEUROLOGICAL: Unresponsive to verbal or to gentle touching of her arms and shoulders. ABDOMEN: Soft with no mass or organomegaly. EXTREMITIES: No cyanosis, clubbing, or edema. RECTAL AND GENITALIA: Deferred. IMPRESSION: 1. Acute mental change. 2. Urinary tract infection. 3. Possible sepsis. 4. Metabolic encephalopathy. 5. Chronic obstructive pulmonary disease. 6. Resolving right upper lobe pneumonia. PLAN: Admit for further evaluation and treatment, including hydration. She will be placed in intensive care unit for close observation. cc: Roman Goode MD
[2019-11-14] MEDS: D5 NS 1,000 ML IV SCH ×3 (05:06→17:03)
[2019-11-14 06:16] LABS: BASO# 0.02 X1000 (0.0-0.2); BASO% 0.1 % (0.0-0.8); EOS# 0.08 X1000 (0.0-0.7); EOS% 0.5 % (0.0-10.0); HEMATOCRIT 40.2 % (37.0-47.0); HEMOGLOBIN 12.1 g/dL (12.0-16.0); IMM GRAN# 0.09 X1000 (0.0-0.04); IMM GRAN% 0.5 % (0.0-0.5); LYMPH% 5.7 % (20.5-51.1); MCH 28.8 PG (27-31); MCHC 30.1 g/dL (33-37); MCV 95.7 FL (81-99); MONO# 0.86 X1000 (0.11-0.59); MONO% 4.9 % (1.7-9.3); MPV 11.6 FL (7.4-10.4); NEUT% 88.3 % (42.2-75.2); PLT 189 X1000 (130-400); WBC 17.55 X1000 (4.8-10.8)
[2019-11-14 06:37] LABS: CREATININE 3.2 mg/dL (0.5-0.9)
--- NOTE | 2019-11-14 07:05 | EKG Report ---
Test Performed on : 11/14/2019 06:28:48 AM Test Reason : elevated troponin Blood Pressure : / mmHG Vent. Rate : 096 BPM Atrial Rate : 096 BPM P-R Int : 124 ms QRS Dur : 068 ms QT Int : 374 ms P-R-T Axes : 073 064 088 degrees QTc Int : 472 ms Sinus rhythm. with premature atrial complexes. Otherwise normal ECG When compared with ECG of 13-NOV-2019 11:36, (Unconfirmed) premature atrial complexes. are now present T wave amplitude has decreased in Anterior leads Confirmed by Chris GARIBAY, Ankush Pruitt ([id number]) on 11/17/2019 5:54:14 PM
--- NOTE | 2019-11-14 09:24 | PROGRESS NOTE ---
DATE: 11/14/2019 OBJECTIVE: Vital signs: Temperature 97.5 degrees, heart rate 84, respirations 21, blood pressure 135/61, O2 saturation 100% on 2 L nasal oxygen. General: The patient is arousable, but confused. She is pulling at tubes and oxygen. Chest: Clear. Abdomen: Soft. LABORATORY DATA: Sodium 147, potassium 5.0, BUN 70, creatinine 3.2. Troponin T 148. Plasma lactate 1.6. EKG both last evening and this morning revealed no Q-wave or ST changes. There are a few PACs this morning. PLAN: Increase to full liquids as tolerated. Lovenox is added subcutaneous. cc: Roman Goode MD
[2019-11-14] MEDS: STERILE WATER INJ. INJ PRN ×2 (11:38→19:42)
[2019-11-14] MEDS: GEODON IM PRN ×2 (11:38→19:40)
[2019-11-14] MEDS ORDERED: SODIUM CHLORIDE 0.9% INJ PRN (12:23)
[2019-11-14] MEDS: PHENERGAN IV PRN ×2 (12:31→19:40)
[2019-11-14] MEDS ORDERED: LEVAQUIN 500 MG/D5W 500 MG/100 ML IVPB IV SCH (17:15)
[2019-11-15] MEDS: D5 NS 1,000 ML IV SCH ×5 (00:42→21:03)
[2019-11-15] MEDS: PHENERGAN IV PRN ×3 (00:43→17:41)
[2019-11-15] MEDS: STERILE WATER INJ. INJ PRN ×2 (07:26→21:04)
[2019-11-15] MEDS: GEODON IM PRN ×3 (07:26→21:04)
[2019-11-15] MEDS: LOVENOX SUBQ SCH (08:10)
[2019-11-15 09:39] LABS: BASO# 0.03 X1000 (0.0-0.2); BASO% 0.3 % (0.0-0.8); EOS# 0.05 X1000 (0.0-0.7); EOS% 0.5 % (0.0-10.0); HEMATOCRIT 39.5 % (37.0-47.0); HEMOGLOBIN 11.9 g/dL (12.0-16.0); IMM GRAN# 0.06 X1000 (0.0-0.04); IMM GRAN% 0.6 % (0.0-0.5); LYMPH# 0.98 X1000 (1.2-3.4); LYMPH% 9.1 % (20.5-51.1); MCHC 30.1 g/dL (33-37); MCV 96.3 FL (81-99); MONO# 0.87 X1000 (0.11-0.59); MONO% 8.1 % (1.7-9.3); MPV 12.2 FL (7.4-10.4); NEUT# 8.74 X1000 (1.4-6.5); NEUT% 81.4 % (42.2-75.2); PLT 171 X1000 (130-400); WBC 10.73 X1000 (4.8-10.8)
[2019-11-15 10:17] LABS: CREATININE 1.8 mg/dL (0.5-0.9); POTASSIUM 3.3 mmol/L (3.5-5.1)
[2019-11-15] MEDS: POTASSIUM CHLORIDE 20 MEQ/SWI 20 MEQ/100 ML IVPB IV SCH ×2 (12:28→15:21)
--- NOTE | 2019-11-15 12:45 | Diag Imaging Result Doc PS360 ---
CHEST-1 VIEW - 11/15/2019 INDICATION: SOB COMPARISON: 11/13/2019 FINDINGS: Stable left chest port in good position. There has been continued improvement in the hazy right upper lobe infiltrate, although there may still be some residual infiltrate. No new infiltrates. Heart size is normal. No pneumothorax or pleural effusion. IMPRESSION: Continued improvement in the right upper lobe infiltrate/pneumonia. Electronically signed by Danilo Camacho 11/15/2019 12:42 PM
--- NOTE | 2019-11-15 14:15 | PROGRESS NOTE ---
DATE: 11/15/[address] Gabriel Goode. 79-year-old white female admitted to the hospital on 11/13/2019. As per the nurses, she is not eating well, confused. I did not get any history. She is in position. PAST MEDICAL HISTORY: Reviewed. PAST SURGICAL HISTORY: Reviewed. MEDICINES: Reviewed. ALLERGIES: Reported to codeine and insulin. OBJECTIVE: Temperature is 98.2 degrees, tachycardic, tachypneic, blood pressure is 134/108, pulse oximetry 97% on room air.HEENT: Within normal limits. Neck: Supple. Chest: Bilateral air entry, tachycardic, no murmur. Belly is soft. Nunez was placed. position. No obvious deficits. INVESTIGATIONS: White cell count 10, hematocrit 39, platelets 171,000. Sodium 155, potassium 3.3, chloride 117, BUN 31, creatinine 1.8, glucose 210. Urinalysis infection. Urine toxic screen was negative. Blood cultures were negative. EKG sinus rhythm nothing acute. CT head, no hemorrhage. Scar noted over the right hip anteriorly. Chest x-ray, port on the left side of the chest. Faint infiltrate in the right upper lobe. ASSESSMENT AND PLAN: 1. Altered mental status due to metabolic encephalopathy. 2. Urinary tract infection based on the urine dipstick and currently on intravenous Levaquin every 48 hours. Creatinine is coming down. 3. Right upper lobe infiltrate, possible aspiration. Continue Levaquin. 4. Elevated white cell count and is getting better. 5. Azotemia is improving but hyponatremic dehydration, continue on dextrose 150 ml /hr and oral fluids as tolerated, 6. Status post right hip fracture, stable. 7. Deep vein thrombosis prophylaxis with Lovenox and Geodon as needed. Most of her medicines are on hold and continue improvement of the sodium levels and creatinine, slowly restart. LEVEL OF DOCUMENTATION: 35 minutes. cc: MD Roman Cline MD [facility]LAND[facility]dee
[2019-11-15] MEDS: LOPRESSOR IV PRN (14:27)
[2019-11-15] MEDS: DUONEB (A & A) INH PRN (14:36)
[2019-11-15] MEDS: LEVAQUIN 250 MG/D5W 250 MG/50 ML IVPB IV SCH (16:13)
[2019-11-16] MEDS: PHENERGAN IV PRN ×3 (00:05→20:48)
[2019-11-16] MEDS: GEODON IM PRN ×4 (01:16→20:47)
[2019-11-16] MEDS: STERILE WATER INJ. INJ PRN ×2 (01:17→20:49)
[2019-11-16] MEDS: D5 NS 1,000 ML IV SCH (03:03)
[2019-11-16] MEDS: LOPRESSOR IV PRN ×3 (03:57→20:47)
[2019-11-16 06:51] LABS: CALCIUM 7.9 mg/dL (8.8-10.2); CREATININE 1.9 mg/dL (0.5-0.9); MAGNESIUM 1.3 mg/dL (1.5-2.7); PHOSPHORUS 2.2 mg/dL (2.7-4.5); POTASSIUM 3.9 mmol/L (3.5-5.1)
[2019-11-16] MEDS ORDERED: D5 1/2 NS 1,000 ML IV SCH (07:30)
[2019-11-16] MEDS: DUONEB (A & A) INH PRN ×2 (08:07→11:43)
[2019-11-16] MEDS: LOVENOX SUBQ SCH (09:55)
[2019-11-16] MEDS ORDERED: MAGNESIUM SULFATE 2 GM/S.W.I. 2 GM/50 ML IVPB IV ONE (11:31)
[2019-11-16] MEDS ORDERED: CALCIUM GLUCONATE 1 GM in NS 50 ML IV ONE (11:31)
[2019-11-16] MEDS ORDERED: POTASSIUM PHOSPHATE 30 MEQ in NS 250 ML IV ONE (12:30)
[2019-11-16] MEDS: D5 1/2 NS 1,000 ML IV SCH ×3 (13:40→20:48)
--- NOTE | 2019-11-16 14:12 | PROGRESS NOTE ---
DATE: 11/16/2019 SUBJECTIVE: The patient is confused, not eating well, tremulous, poor historian. Poor IV access yesterday. Not able to get fluids for a while. INTERVAL HISTORY: Other than poor IV access, nothing significant. OBJECTIVE: Vital signs: Temperature is 97 degrees, tachycardic, heart rate is 120, blood pressure is 130/50, 98% on room air. I's and O's positive 2.4 L. HEENT: Not pale. position. Chest: Clear. No wheezing. Port-A-Cath noted on the left side of the chest. Cardiovascular: Distant heart sounds. Abdomen: Belly is soft, nontender. Neurologic: No neurological deficits. INVESTIGATIONS: Sodium 160, potassium 3.9, BUN 25, creatinine 1.9, calcium 7.9, phosphorus 2.2, magnesium 1.3. Chest x-ray on 11/15: Stable, improvement of right upper lobe pneumonia. EKG: Sinus tachycardia. ASSESSMENT AND PLAN: 1. Right upper lobe pneumonia. Continue on IV Levaquin every 48 hours. 2. Hypernatremic dehydration. Change the IV fluids to D5W 175 an hour since the patient is not eating. 3. Poor intravenous access. Will use the access on port on the left side. 4. Deep vein thrombosis prophylaxis with Lovenox. 5. Electrolytic abnormalities. 1) Low magnesium. Replace the magnesium sulfate. 2) Calcium. Replace the calcium gluconate. Also potassium phosphate. Encouraged the patient to drink liquids. Apparently the patient is not taking a lot of oral food. 6. Agitation. Geodon as needed. 7. For tachycardia, metoprolol 5 mg q.6 as needed. LEVEL OF DOCUMENTATION: Twenty-five minutes. cc: MD Roman Cline MD
[2019-11-17] MEDS: D5 1/2 NS 1,000 ML IV SCH ×4 (00:27→15:22)
[2019-11-17] MEDS ORDERED: ATIVAN IV PRN (01:18)
[2019-11-17 07:08] LABS: POTASSIUM 3.7 mmol/L (3.5-5.1)
[2019-11-17] MEDS ORDERED: CALCIUM GLUCONATE 1 GM in NS 50 ML IV ONE (07:32)
--- NOTE | 2019-11-17 07:40 | Diag Imaging Result Doc PS360 ---
EXAM: CHEST-PORTABLE INDICATION: dyspnea TECHNIQUE: One view COMPARISON: 11/15/2019 FINDINGS: The left chest port is in stable position. The right upper lobe consolidation appears to have worsened slightly since the previous study. No new consolidation is identified, otherwise. Cardiac silhouette is stable. IMPRESSION: Slight worsening of right upper lobe consolidation. Electronically signed by Dave Sumner 11/17/2019 7:38 AM
[2019-11-17] MEDS: ATIVAN IV PRN ×2 (08:27→13:24)
[2019-11-17] MEDS: LOVENOX SUBQ SCH (08:27)
--- NOTE | 2019-11-17 08:32 | PROGRESS NOTE ---
DATE: 11/17/2019 VITAL SIGNS: Temperature 97.6 degrees, heart rate 115, respirations 24, blood pressure 107/60. LABORATORY DATA: Sodium 151, potassium 3.7, CO2 of 119, BUN 21, creatinine 2, glucose 158, calcium 7. Blood cultures, no growth. Chest x-ray, right upper lobe infiltrate, bases are clear. OBJECTIVE: General: The patient is agitated and confused. She has had very little p.o. intake over the past few days. Discussion was made with her, although it is difficult to know how much she understands. Chest: Fairly clear to auscultation. Abdomen: Soft. Input and Output: She is obtaining IV fluids per left subclavian port. Input and output over the last shift was positive 4900. No p.o. intake was recorded yesterday. She has had some small liquid bowel movements. PLAN: Continue intravenous fluids, Levaquin, and pureed diet today. cc: Roman Goode MD MTDHaydee
[2019-11-17 09:36] LABS: ALLEN TEST YES; BLOOD TYPE ARTERIAL; HCO3-(ACT) 20.2 mmoll (20.0-26.0); METHB 0.9 % (0.0-1.5); O2(CT) 13.9 mL/dL (15.0-23.0); O2HB 96.3 % (95.0-99.0); PCO2(98.6) 42 mmHg (35-45); PO2(98.6) 91 mmHg (60-100); SAMPLE BLOOD; THB 10.2 g/dL (11.5-17.4); pH(98.6) 7.29 (7.35-7.45)
[2019-11-17 09:38] LABS: MODALITY CANNULA
[2019-11-17] MEDS ORDERED: D5W 500 ML IV ONE (14:45)
[2019-11-17] MEDS: LOPRESSOR IV PRN (15:23)
[2019-11-17] MEDS ORDERED: LASIX IV ONE (17:26)
[2019-11-17] MEDS ORDERED: ALBUMIN 25% IV ONE (17:30)
[2019-11-17] MEDS: MORPHINE IV PRN (17:42)
[2019-11-17] MEDS: LEVAQUIN 250 MG/D5W 250 MG/50 ML IVPB IV SCH (17:47)
[2019-11-18] MEDS: LOPRESSOR IV PRN ×2 (00:05→15:51)
[2019-11-18] MEDS: MORPHINE IV PRN ×2 (00:57→20:39)
[2019-11-18 06:37] LABS: CREATININE 2.5 mg/dL (0.5-0.9); POTASSIUM 3.9 mmol/L (3.5-5.1)
[2019-11-18 06:39] LABS: CALCIUM 6.8 mg/dL (8.8-10.2)
[2019-11-18] MEDS ORDERED: CALCIUM GLUCONATE 1 GM in NS 50 ML IV ONE (06:51)
[2019-11-18] MEDS ORDERED: LASIX IV ONE ×2 (07:52→18:38)
[2019-11-18] MEDS ORDERED: CALCIUM GLUCONATE 4.65 MEQ in NS 50 ML IV ONE (08:04)
--- NOTE | 2019-11-18 08:35 | PROGRESS NOTE ---
DATE: 11/18/2019 Vital signs: Temperature 98 degrees, heart rate 100, respirations 25, blood pressure 145/60, O2 saturation 99% on Venturi mask. LABORATORY: Sodium 147, potassium 3.9, BUN 27, creatinine 2.5, glucose 66, calcium 6.8. The patient is resting comfortably. Her last morphine dose was at 1 this morning. Lungs seem a little wet to auscultation. She did not have much urine output in response to 40 mg IV Lasix yesterday. I and O balance the last 24 hours is positive 1300. PLAN: Discussion was made with her son. She is made level 1 DNR. Comfort measures primarily will be done at this point. Discussion was made concerning leaving her in ICU versus moving to the floor with hospice assistance. This will be considered today, but for now, she remains in the ICU. She had no p.o. intake yesterday. Impression: Most likely terminal condition. cc: Roman Goode MD
[2019-11-18] MEDS: D5W 1,000 ML IV SCH ×2 (10:13→23:10)
[2019-11-18 20:03] LABS: BASO# 0.01 X1000 (0.0-0.2); BASO% 0.1 % (0.0-0.8); EOS# 0.04 X1000 (0.0-0.7); EOS% 0.4 % (0.0-10.0); HEMATOCRIT 30.1 % (37.0-47.0); HEMOGLOBIN 8.9 g/dL (12.0-16.0); LYMPH# 1.56 X1000 (1.2-3.4); LYMPH% 14.7 % (20.5-51.1); MCH 29.5 PG (27-31); MCHC 29.6 g/dL (33-37); MCV 99.7 FL (81-99); MONO# 0.58 X1000 (0.11-0.59); MONO% 5.5 % (1.7-9.3); MPV 12.9 FL (7.4-10.4); NEUT# 8.44 X1000 (1.4-6.5); NEUT% 79.3 % (42.2-75.2); PLT 94 X1000 (130-400); RBC 3.02 XMIL (4.2-5.4); RDW 16.1 % (11.5-14.5); WBC 10.63 X1000 (4.8-10.8)
[2019-11-18 20:14] LABS: ANISOCYTOSIS 2+; BANDS 4 % (0-1); LYMPHS 18 % (21-51); MONO 2 % (1-9); SEGS 74 % (42-75)
[2019-11-18] MEDS: DUONEB (A & A) INH PRN (21:40)
[2019-11-19] MEDS: LOPRESSOR IV PRN (06:16)
[2019-11-19] MEDS: DUONEB (A & A) INH PRN ×4 (06:24→21:27)
[2019-11-19] MEDS: LOVENOX SUBQ SCH (08:37)
[2019-11-19] MEDS ORDERED: BLISTEX MEDICATED BERRY LIP BALM TOP PRN (09:23)
--- NOTE | 2019-11-19 09:34 | PROGRESS NOTE ---
DATE: 11/19/2019 OBJECTIVE: Vital signs: Temperature 99.2 degrees temporal, heart rate 99, respirations 19, blood pressure 104/49, and O2 saturation 100% on Venturi mask 50%. LABORATORY: Hemoglobin 8.9, hematocrit 30.1, white blood count 10,600 with 79% neutrophils. PHYSICAL EXAMINATION: The patient is obtunded this morning with minimal response. She continues to pull off her oxygen mask frequently. She has some upper airway mucus which requires frequent suctioning. Lungs reveal bilateral rhonchi. She apparently ate some ice cream last night and was more alert. PLAN: Discussion was made with her son. She will be left in the ICU until there is improvement. She continues to be DNR level 1. cc: Roman Goode MD
[2019-11-19] MEDS: D5W 1,000 ML IV SCH (11:12)
[2019-11-19] MEDS ORDERED: LASIX IV ONE (11:40)
[2019-11-19] MEDS: MORPHINE IV PRN (12:15)
[2019-11-19] MEDS ORDERED: TYLENOL PR PRN (15:44)
[2019-11-19] MEDS: ATROPINE 1 % OPHTH SOLN SL PRN (17:12)
[2019-11-19] MEDS: LEVAQUIN 250 MG/D5W 250 MG/50 ML IVPB IV SCH (17:12)
--- NOTE | 2019-11-19 17:23 | PROGRESS NOTE ---
DATE: 11/19/2019 OBJECTIVE: Vital Signs: Temperature 100.5 degrees axillary, heart rate 115, respirations 23, blood pressure 117/49, O2 saturation on 35% venturi mask 100%. General: The patient has been obtunded through the day. Lungs: Respirations seem more labored. There is a rattle in her upper airways with respirations. PLAN: Discussion was made with the patient's sons who understand the gravity of her condition and realize that the situation is most likely terminal. Option was given for her to be moved to the floor with hospice care. Decision was made to keep her in ICU overnight. She is level 1 DNR. cc: Roman Goode MD
[2019-11-20] MEDS: MORPHINE IV PRN ×5 (04:00→23:56)
[2019-11-20] MEDS: ATROPINE 1 % OPHTH SOLN SL PRN ×4 (04:00→23:51)
--- NOTE | 2019-11-20 07:09 | Diag Imaging Result Doc PS360 ---
EXAM: CHEST-PORTABLE 11/20/2019 HISTORY: pneumonia TECHNIQUE: AP portable at 0458 COMMENT: There are patchy opacities in both lung bases which are worse than on 11/17/2019. The opacity previously present in the right upper lobe is somewhat improved. IMPRESSION: Pulmonary edema versus pneumonia. Electronically signed by Griffin Lane 11/20/2019 7:06 AM
[2019-11-20] MEDS ORDERED: BUMEX IV ONE ×2 (07:51→17:13)
--- NOTE | 2019-11-20 08:11 | PROGRESS NOTE ---
DATE: 11/20/2019 VITAL SIGNS: Temperature 97.6 degrees, heart rate 110, respirations 17, blood pressure 115/61, O2 saturation on 28% Venturi mask 99. Chest x-ray: Improved right upper lung, but infiltrates versus pulmonary edema at the bases. She is unresponsive and moaning at times. Respirations are somewhat labored. I and O in the last 24 hours positive 265 cc. She does not seem to respond much to Lasix. Discussion was made with her son who wishes that she remain in the ICU unless personnel can be with her on the floor 14/05. If he changes and wishes hospice to assist, she will be transferred to the floor. Her condition appears to be terminal. PLAN: Continue comfort measures. She continues to be Do Not Resuscitate level 1. cc: Roman Goode MD MTDD
[2019-11-20] MEDS: LOVENOX SUBQ SCH (08:42)
[2019-11-20] MEDS: DUONEB (A & A) INH PRN ×3 (09:42→21:50)
[2019-11-20 10:27] LABS: CALCIUM 7.4 mg/dL (8.8-10.2); CREATININE 4.6 mg/dL (0.5-0.9); POTASSIUM 3.7 mmol/L (3.5-5.1)
--- NOTE | 2019-11-20 16:06 | Extremity Venous Study ---
PROCEDURE NAME: Venous U/S Left Arm - 11/17/2019 PROCEDURE: Left upper extremity venous ultrasound. DATE OF STUDY: 11/17/2019. SUBPOENA SERVER: Marge. REQUESTING PHYSICIAN: Jose. INDICATIONS: Edema. FINDINGS: The deep and superficial veins of the left upper extremity and neck were visualized. The vessels were compressible with forward flow and no evidence of intraluminal thrombus. Of note, this was a limited exam given patient tremor and altered mental status and inability to comply completely with exam. IMPRESSION: No deep or superficial venous thrombosis noted in the left upper extremity or neck. cc: MD Christopher Mayorga MD Robert Allen, MD
[2019-11-21] MEDS: DUONEB (A & A) INH PRN ×4 (03:48→21:32)
[2019-11-21] MEDS ORDERED: BUMEX IV ONE (07:51)
--- NOTE | 2019-11-21 08:10 | PROGRESS NOTE ---
DATE: 11/21/2019 VITAL SIGNS: Temperature 97.2 degrees, heart rate 116, respiration 37, blood pressure 89/50, O2 saturation with Venturi mask 96%. Patient is unresponsive. LABORATORY: Yesterday, revealed BUN 49, creatinine 4.6. She is retaining fluid with her poor nutritional status. There was negative fluid balance yesterday. PLAN: Continue comfort measures. She continues to be DNR level 1. The family understands her terminal condition. cc: Roman Goode MD
[2019-11-21] MEDS: MORPHINE IV PRN ×7 (08:21→22:37)
[2019-11-21] MEDS: LOVENOX SUBQ SCH (08:22)
[2019-11-21] MEDS: ATROPINE 1 % OPHTH SOLN SL PRN ×3 (10:36→22:43)
[2019-11-21] MEDS: LEVAQUIN 250 MG/D5W 250 MG/50 ML IVPB IV SCH (16:06)
[2019-11-22] MEDS: DUONEB (A & A) INH PRN ×4 (03:12→21:15)
[2019-11-22] MEDS: MORPHINE IV PRN ×4 (03:59→17:48)
[2019-11-22] MEDS: ATROPINE 1 % OPHTH SOLN SL PRN (08:34)
[2019-11-22] MEDS: LOVENOX SUBQ SCH (08:40)
--- NOTE | 2019-11-22 12:30 | PROGRESS NOTE ---
DATE: 11/22/2019 SUBJECTIVE: The patient is nonresponsive. She has been given some morphine. Came in with altered mental status. At this time she is comfort measures and a DNR 1. She has had COPD and apparently coronary artery disease and she has been on isosorbide. OBJECTIVE: Vital signs: Blood pressure is 102/60, respirations 13, pulse 114 so she has a sinus tachycardia. Temperature 97.6 degrees Fahrenheit. HEENT: She is normocephalic but not responsive. Neck: Supple. Lungs: Clear to auscultation. Heart: Slightly tachycardic without murmurs, gallops, friction rubs. Abdomen: Soft. Active bowel sounds. No organomegaly or tenderness. Neurological: The patient is nonresponsive. LABORATORY DATA: Lab work for today. ASSESSMENT: 1. End-stage chronic obstructive pulmonary disease. 2. Altered mental status. PLAN: Continue comfort measures. Note that the patient has also had some hypotension, it is a little better today. cc: MD Roman Hudson Jr, MD
[2019-11-23] MEDS: MORPHINE IV PRN ×6 (00:47→20:24)
[2019-11-23] MEDS: DUONEB (A & A) INH PRN ×4 (03:28→21:30)
[2019-11-23] MEDS: LOVENOX SUBQ SCH (08:16)
--- NOTE | 2019-11-23 11:48 | PROGRESS NOTE ---
DATE: 11/23/2019 SUBJECTIVE: The patient is nonresponsive, has been that way for the last few days. Apparently, at least was yesterday. OBJECTIVE: Blood pressure is 128/56, respirations 18, pulse 112, temperature 98.4 degrees Fahrenheit. HEENT: She is normocephalic. Lungs: Sound clear to auscultation anteriorly. Heart: Regular rate and rhythm to sinus tachycardia without murmurs, gallops, or friction rubs that I can hear to at this time. Abdomen: Soft. Active bowel sounds. No organomegaly or tenderness. Neurological Examination: The patient is unresponsive. Laboratory: Has not been drawn in the last few days. Chemistry profile was done on the . Creatinine was up to 4.6, BUN 49. Her eldest son was in the room. I talked with him about her condition. She has end-stage COPD, renal failure, altered mental status. The patient is still getting antibiotics and scheduled for more antibiotics this evening. Discussed with him the issues of being in the unit. She is a Do Not Resuscitate 1 and under comfort measures. Certainly, it is Dr. Goode's and the patient's family members decision about how aggressive to be under these circumstances. The patient has not responded. I offered the son to move her to the floor where more family members could visit her if we were not going to anything else and to consider stopping her IV antibiotics. Also told him that we could continue with this and let Dr. Goode discuss it with them tomorrow, and they may want to continue with this. My impression was that the son has been waiting for her to . She had some hypotension initially but was resuscitated. It is true that she has been here since 11/13/2019, so a little over a week and is not responding. Son tells me he wants to talk with his brother, who is having his own problems having pneumonia, and his [id number] also in very bad health that he is having to deal with but he did not want to make this decision on his own. I told him he should talk with his brother and that they should come to a consensus so they can discuss it with Dr. Goode tomorrow in case they want to do any changes. If not, we will continue on with ICU treatment and with the care already planned. If they later decide that they want only comfort care and want her moved to the floor, we can do that. Chest x-ray on the showed pulmonary edema versus pneumonia. cc: MD Roman Hudson Jr, MD
[2019-11-23] MEDS: LEVAQUIN 250 MG/D5W 250 MG/50 ML IVPB IV SCH (18:21)
[2019-11-23] MEDS: ATROPINE 1 % OPHTH SOLN SL PRN (20:25)
[2019-11-24] MEDS: DUONEB (A & A) INH PRN (03:16)
[2019-11-24] MEDS: MORPHINE IV PRN ×5 (03:32→17:00)
[2019-11-24] MEDS: LOVENOX SUBQ SCH (08:00)
--- NOTE | 2019-11-24 08:05 | PROGRESS NOTE ---
DATE: 11/24/2019 SUBJECTIVE: Vital signs stable. Temperature 98 degrees, heart rate 106, respirations 21, blood pressure 106/53, O2 saturation on Venturi mask 99%. The patient continues to be unresponsive with shallow breathing. Edema is a little less. I and O last shift: Intake 60 mL, output 40, balance 20. Patient had a black tarry bowel movement. Patient is terminal. Discussion was made with the patient's sons. She will be transferred to the floor with continued comfort measures. Hospice is asked to assist. cc: Roman Goode MD
[2019-11-24] MEDS ORDERED: MORPHINE IV PRN (17:31)
[2019-11-24 21:09] VITALS: BP 62/35
--- NOTE | 2019-11-25 20:56 | DISCHARGE SUMMARY ---
ADMISSION DATE: 11/13/2019 DISCHARGE DATE: 11/24/2019 DATE OF : 11/24/2019 at 11:45 p.m. FINAL DIAGNOSES: 1. Urinary tract infection. 2. Sepsis. 3. Metabolic encephalopathy. 4. Severe chronic obstructive pulmonary disease. 5. Right upper lobe pneumonia. HISTORY: This is one of several recent [facility] admissions for this 79-year-old white female with end-stage COPD who presented to the emergency room from rehab with acute mental change. She had been at rehab for a couple of days and developed urinary tract infection and sepsis. She had metabolic encephalopathy when she went to rehab, but this was exacerbated by her sepsis. She was admitted for further evaluation and treatment to intensive care unit for intravenous antibiotics and blood pressure support. INITIAL LABORATORY: Hemoglobin 14.5, hematocrit 46.8, white blood count 33,900 with 91% neutrophils. Sodium 142, potassium 5.7, BUN 81, creatinine 3.9. Troponin 175, elevated. Liver functions normal. Glucose 237, total protein 5.7, albumin 3.3. This indicated some protein and calorie malnutrition. HOSPITAL COURSE: She was treated with intravenous antibiotics, Levaquin. Blood culture revealed no growth at 5 days from 2 sites. Her lab improved with BUN and creatinine dropping to 21 and 2.0 respectively. Potassium improved to 3.9. Calcium was low at times. CPK was elevated at times. There was no evidence of rhythm change or EKG changes. CT of her head on admission revealed no hemorrhage or mass. There was atrophy with chronic microvascular ischemic change. She was admitted with stroke symptoms and unresponsiveness, but became a little more responsive after hydration and treatment of urinary tract infection. Despite improvement, she continued to have metabolic encephalopathy and responded to Geodon for agitation best. Her appetite improved initially then decreased over several days to the point she was not eating anything. Discussion was made with family who agreed to do no aggressive resuscitation. Comfort measures were instituted. Plans were made to move her to the floor, but she was kept in ICU for family comfort. She continued to slowly deteriorate until the evening of at 11:45 p.m. No organ donation was indicated. She 11/24/2019 evening. cc: Roman Goode MD
== END 2019-11-24 20:45 | disposition expired | DRG 871 ==
LOC: SUPCPDRO → ED 11:23 → ICU 16:46
PROVIDERS: ADMIT Family Medicine; ATTEND Family Medicine